=== PATIENT | male | born 1980 | race Caucasian/White ===

== ENCOUNTER 2020-09-30 11:20 | Emergency (ER) | payer OTHER, SELFPAY ==
[2020-09-30 11:25] VITALS: BP 123/99; PULSE 88; RESP 18; TEMP 36.1; O2SAT 98
--- NOTE | 2020-09-30 12:57 | ED.GENADULT ---
HPI - General Adult General Chief complaint: Unspecified Stated complaint: depression/anxiety Time Seen by Provider: 09/30/20 12:11 Source: patient Mode of arrival: ambulatory Limitations: no limitations History of Present Illness HPI narrative: Patient is a 40 year old male who presents with complaints of anxiety and depression. Patient reports multiple recent stressors in his life with change of job, relationship changes, moving among other things. Patient reports that he was diagnosed with ADHD in the past and took Adderall but reports he is not currently taking. He reports loss of enjoyment of activities and intermittent anxiety. He denies suicidal or homicidal thoughts and states he is just sad sometimes and wants to feel better in general . He denies chest pain, shortness or breath or any medical complaints. Patient reports he is seeking referrals for help. MD complaint: Depression and anxiety Related Data Allergies Allergy/AdvReac Type Severity Reaction Status Date / Time No Known Allergies Allergy Verified 09/30/20 11:51 Review of Systems Review of Systems: Narrative: CONSTITUTIONAL: Denies fever, chills, or sweats. EYES: Denies visual changes, redness, or discharge. ENT: Denies rhinorrhea, congestion, sore throat, or otalgia. CARDIOVASCULAR: Denies chest pain, palpitations, or edema. RESPIRATORY: Denies cough or dyspnea. GASTROINTESTINAL: Denies abdominal pain, nausea, vomiting, or diarrhea. GENITOURINARY: Denies dysuria or hematuria. SKIN: Denies rash or itching. MUSCULOSKELETAL: Denies back pain, joint pain, or myalgia. NEUROLOGIC: Denies headache, numbness, dizziness, or weakness. PSYCHIATRIC: Reports intermittent anxiety and depression. [facility] Past Medical History Medical History Attention Deficit Hyperactivity Disorder (ADHD) Chronic low back pain Family History Family History Mother Family history of malignant neoplasm of breast in first degree relative, Onset Age: 37 Other Carcinoma of colon Family history of arthritis Malignant neoplasm of prostate Social History Social History (Updated 09/30/20 @ 13:04 by FANI Barnes) Smoking status: Light tobacco smoker Tobacco type: cigarettes Alcohol intake: current Alcohol use details: occasional Substance use: current Substance use type: marijuana Living arrangements: with family Occupation/Education: occupation Gender identity (if verbalized by the patient): Male Comments At the time of signature, I have reviewed and agree with nursing past medical, surgical, social, and family history unless otherwise noted. Please see nursing chart for further information. There is no relevant family history pertinent to the presenting complaint. Exam Narrative: Exam Narrative: GENERAL: Well-appearing, well-nourished, and in no acute distress. HEAD: Normocephalic, atraumatic. EYES: EOMI. No redness or drainage. Conjunctiva are normal. ENT: Mucous membranes pink and moist. CHEST: No respiratory distress. HEART: Regular rate and rhythm. No murmur appreciated. Normal peripheral pulses. GI: Soft, nontender without rebound, or guarding. EXTREMITIES: Normal range of motion. SKIN: Warm, dry, no rash. NEURO: No focal deficits. Alert and oriented x3. Gait steady. PSYCH: Normal affect. No signs of depression. Mild anxiety noted. No SI/HI. Patient seeking resources. Course Vital Signs Vital signs: Vital Signs Temperature 36.1 C L 09/30/20 11:25 Pulse Rate 88 09/30/20 11:25 Respiratory Rate 18 09/30/20 11:25 Blood Pressure 123/99 H 09/30/20 11:25 Pulse Oximetry 98 09/30/20 11:25 Temperature 36.1 C L 09/30/20 11:25 Pulse Rate 88 09/30/20 11:25 Respiratory Rate 18 09/30/20 11:25 Blood Pressure 123/99 H 09/30/20 11:25 Pulse Oximetry 98 09/30/20 11:25 Reviewed. Patient has been instructed
[2020-09-30 13:25] VITALS: BP 122/73; PULSE 85; RESP 17; O2SAT 100
== END 2020-09-30 13:26 | disposition home or self-care (01) ==
PROVIDERS: Emergency Provider Nurse Practitioner
DX: F41.9 Anxiety disorder, unspecified (principal); F32.9 Major depressive disorder, single episode, unspecified; F90.9 Attention-deficit hyperactivity disorder, unspecified type; F17.210 Nicotine dependence, cigarettes, uncomplicated; R03.0 Elevated blood-pressure reading, without diagnosis of hypertension
CPT/HCPCS: 99283

== ENCOUNTER 2022-02-12 07:02 | Emergency (ER) | payer SELFPAY ==
[2022-02-12 07:05] VITALS: BP 154/105; PULSE 68; RESP 20; TEMP 36.9; O2SAT 98
[2022-02-12 07:44] LABS: Alanine Aminotransferase 18 U/L (6-50); Albumin Level 4.6 g/dL (3.5-5.1); Alkaline Phosphatase 71 U/L (38-126); Anion Gap 12 mmol/L (8-16); Aspartate Amino Transferase 23 U/L (17-59); Bilirubin,Total 0.9 mg/dL (0.2-1.3); Blood Urea Nitrogen 16 mg/dL (9-20); Calcium 9.6 mg/dL (8.4-10.2); Carbon Dioxide 28 mmol/L (22-30); Chloride 101 mmol/L (98-107); Estimated Glomerular Filt Rate > 60; Glucose 113 mg/dL (65-110); Potassium 3.5 mmol/L (3.4-5.0); Sodium 141 mmol/L (137-145)
--- NOTE | 2022-02-12 07:55 | PC.NURSE ---
Pt walking out of room, stating we're out of here, he can't wait This RN verified that pt IV was removed. Pt ambulated to the exit with no difficulty
[2022-02-12 08:03] LABS: Basophils Percent Auto 0.5 % (0.2-1.2); Eosinophils Absolute Auto 0.2 K/mm3 (0-0.3); Eosinophils Percent Auto 2.3 % (0-4.4); Hematocrit 49.4 % (42.0-52.0); Immature Granulocyte Absolute 0.05 K/mm3 (0.00-0.031); Immature Granulocyte Percent A 0.7 % (0-0.5); Lymphocytes Absolute Auto 1.98 K/mm3 (0.9-3.2); Lymphocytes Percent Auto 26.8 % (18.3-44.2); Mean Corpuscular HGB Conc 34.4 g/dl (32-36); Mean Corpuscular Hemoglobin 32.9 pg (26-34); Mean Corpuscular Volume 95.7 fl (80-100); Mean Platelet Volume 9.9 fl (7.4-10.4); Monocytes Absolute Auto 0.7 K/mm3 (0.1-0.6); Monocytes Percent Auto 9.2 % (2.6-8.5); Neutrophils Absolute Auto 4.5 K/mm3 (1.3-6.7); Neutrophils Percent Auto 60.5 % (45.5-73.1); Platelet Count Result 252 k/mm3 (150-375); Red Blood Count 5.16 M/mm3 (4.6-6.20); Red Cell Distribution Width 12.4 % (11.5-14.5); White Blood Count 7.4 K/mm3 (4.5-10.0)
--- NOTE | 2022-02-12 08:05 | ED.GENADULT ---
HPI - General Adult General Chief complaint: Back Pain/Injury Stated complaint: R flank pain Time Seen by Provider: 02/12/22 07:05 History of Present Illness HPI narrative: Patient left prior to seeing provider Related Data Allergies Allergy/AdvReac Type Severity Reaction Status Date / Time No Known Allergies Allergy Verified 09/30/20 11:51 [facility] Past Medical History Medical History (Updated 10/03/20 @ 09:03 by Venita Martinez NP) Anxiety Attention Deficit Hyperactivity Disorder (ADHD) Chronic low back pain Hx of renal calculi Family History Family History Mother Family history of malignant neoplasm of breast in first degree relative, Onset Age: 37 Other Carcinoma of colon Family history of arthritis Malignant neoplasm of prostate Social History Social History (Updated 11/19/20 @ 13:59 by Viviana Jain [facility]) Smoking status: Current every day smoker Tobacco type: cigarettes Alcohol intake: current Alcohol use details: occasional Substance use: current Substance use type: marijuana Gender identity (if verbalized by the patient): Male Course Vital Signs Vital signs: Vital Signs Temperature 98.4 F 02/12/22 07:05 Pulse Rate 68 02/12/22 07:05 Respiratory Rate 20 02/12/22 07:05 Blood Pressure 154/105 H 02/12/22 07:05 Pulse Oximetry 98 02/12/22 07:05 Oxygen Delivery Room Air 02/12/22 07:05 Temperature 98.4 F 02/12/22 07:05 Pulse Rate 68 02/12/22 07:05 Respiratory Rate 20 02/12/22 07:05 Blood Pressure 154/105 H 02/12/22 07:05 Pulse Oximetry 98 02/12/22 07:05 Oxygen Delivery Room Air 02/12/22 07:05 Medical Decision Making Vital Signs Vital Signs: Vital Signs Temperature 98.4 F 02/12/22 07:05 Pulse Rate 68 02/12/22 07:05 Respiratory Rate 20 02/12/22 07:05 Blood Pressure 154/105 H 02/12/22 07:05 Pulse Oximetry 98 02/12/22 07:05 Oxygen Delivery Room Air 02/12/22 07:05 Temperature 98.4 F 02/12/22 07:05 Pulse Rate 68 02/12/22 07:05 Respiratory Rate 20 02/12/22 07:05 Blood Pressure 154/105 H 02/12/22 07:05 Pulse Oximetry 98 02/12/22 07:05 Oxygen Delivery Room Air 02/12/22 07:05 Lab Data Result diagrams: 02/12/22 07:26 02/12/22 07:26 Labs: Lab Results 02/12/22 02/12/22 Range/Units 07: 07:26 WBC 7.4 (4.5-10.0) K/mm3 RBC 5.16 (4.6-6.20) M/mm3 Hgb 17.0 (14.0-18.0) g/dL Hct 49.4 (42.0-52.0) % MCV 95.7 (80-100) fl MCH 32.9 (26-34) pg MCHC 34.4 (32-36) g/dl RDW 12.4 (11.5-14.5) % Plt Count 252 (150-375) k/mm3 MPV 9.9 (7.4-10.4) fl Immature Gran % (Auto) 0.7 H (0-0.5) % Neut % (Auto) 60.5 (45.5-73.1) % Lymph % (Auto) 26.8 (18.3-44.2) % Polk % (Auto) 9.2 H (2.6-8.5) % Eos % (Auto) 2.3 (0-4.4) % Baso % (Auto) 0.5 (0.2-1.2) % Lymph # (Auto) 1.98 (0.9-3.2) K/mm3 Polk # (Auto) 0.7 H (0.1-0.6) K/mm3 Eos # (Auto) 0.2 (0-0.3) K/mm3 Baso # (Auto) 0.0 (0.0-0.1) K/mm3 Abs Immat Gran (auto) 0.05 H (0.00-0.031) K/mm3 Absolute Neuts (auto) 4.5 (1.3-6.7) K/mm3 Absolute Nucleated RBC 0.0 (0.0-0.012) K/mm3 Nucleated RBC % 0.0 (0.0-0.2) % Sodium 141 (137-145) mmol/L Potassium 3.5 (3.4-5.0) mmol/L Chloride 101 (98-107) mmol/L Carbon Dioxide 28 (22-30) mmol/L Anion Gap 12 (8-16) mmol/L BUN 16 (9-20) mg/dL Creatinine 1.10 (0.7-1.3) mg/dL Estim Creat Clear Calc Not Reportable Estimated GFR > 60 (59 - ) Glucose 113 H (65-110) mg/dL Calcium 9.6 (8.4-10.2) mg/dL Total Bilirubin 0.9 (0.2-1.3) mg/dL AST 23 (17-59) U/L ALT 18 (6-50) U/L Alkaline Phosphatase 71 (38-126) U/L Total Protein 7.0 (6.3-8.2) g/dL Albumin 4.6 (3.5-5.1) g/dL Discharge Plan Discharge Patient Disposition: Left Without Being Sn Triaged Prescriptions: No Action triamcinolone ac
== END 2022-02-12 07:55 | disposition left against medical advice (07) ==
PROVIDERS: Emergency Provider Emergency Medicine; PCP Internal Medicine
DX: M54.9 Dorsalgia, unspecified (principal)
CPT/HCPCS: 36415; 80053; 85025; 99199

== ENCOUNTER 2022-02-28 12:11 | Emergency (ER) | payer SELFPAY ==
--- NOTE | ~2022-02-28 | CT_ITS ---
EXAMINATION: CT abdomen pelvis wo con DATE: 02/28/2022 13:40 INDICATION: Right lower quadrant pain. Flank pain. TECHNIQUE: Computed tomography (CT) of the abdomen and pelvis was performed without intravenous contr ast. The dose-length product was 601.98 mGy-cm. Automated exposure control and iterative reconstructi on technique were employed. COMPARISON: CT dated 11/22/2007 FINDINGS: There is bibasilar dependent atelectasis. Heart size normal. No significant pleural or nicko cardial effusion. No significant vascular abnormality. Retroaortic left renal vein. No lymphadenopath y. There is a proximal right ureteral stone measuring 7 x 5 mm with moderate hydroureteronephrosis. Ther e are additional nonobstructing bilateral renal stones. The liver, spleen, pancreas, right adrenal gland are unremarkable. There is a 1.3 cm left adrenal mas s, most likely benign adenoma statistically. Gallbladder is present. Nonobstructive bowel gas pattern . Normal appendix. No abnormal pelvic masses or fluid collections. Moderate lumbar spondylosis. No ac shalonda osseous abnormality. IMPRESSION: 1. Proximal right ureteral stone at the L4-5 level measuring 7 x 5 mm. 2: Bilateral nephrolithiasis. Reviewed, dictated and finalized at location A. LANCE GRAPHIC DESIGNER
[2022-02-28 12:13] VITALS: BP 133/86; PULSE 88; RESP 14; TEMP 36.2; O2SAT 100
[2022-02-28 12:17] VITALS: BP 127/92; PULSE 91; RESP 14; TEMP 36.3; O2SAT 100
--- NOTE | 2022-02-28 12:22 | ED.ABDPAIN ---
HPI - Abdominal Pain General Chief Complaint: Abdominal Pain Stated Complaint: stomach pain, indigestion Time Seen by Provider: 02/28/22 12:14 History of Present Illness HPI narrative: 41-year-old male with history of kidney stones and lower back pain presented emergency department for evaluation of increased fatigue, right lower quadrant abdominal pain and decreased p.o. intake. Patient states last week he was having right-sided flank pain that radiated down to his testicles was reminiscent of a kidney stone. Patient states he did have some blood in his urine last week. Patient states the pain has significantly improved but he is still had decreased p.o. intake and still feels fatigued. Patient declined any medications for pain control or nausea control. Related Data Allergies Allergy/AdvReac Type Severity Reaction Status Date / Time No Known Allergies Allergy Verified 02/28/22 12:19 Review of Systems Review of Systems: CONSTITUTIONAL: Denies fever, chills, or sweats. EYES: Denies visual changes, redness, or discharge. ENT: Denies rhinorrhea, congestion, sore throat, or otalgia. CARDIOVASCULAR: Denies chest pain, palpitations, or edema. RESPIRATORY: Denies cough or dyspnea. GASTROINTESTINAL: See HPI GENITOURINARY: Denies dysuria or hematuria. SKIN: Denies rash or itching. MUSCULOSKELETAL: Denies back pain, joint pain, or myalgia. NEUROLOGIC: Denies headache, numbness, or weakness. [facility] Past Medical History Medical History (Updated 02/28/22 @ 14:52 by Holland Yee MD) Anxiety Attention Deficit Hyperactivity Disorder (ADHD) Chronic low back pain Hx of renal calculi Family History Family History Mother Family history of malignant neoplasm of breast in first degree relative, Onset Age: 37 Other Carcinoma of colon Family history of arthritis Malignant neoplasm of prostate Social History Social History (Updated 11/19/20 @ 13:59 by Viviana Jain CMA) Smoking status: Current every day smoker Tobacco type: cigarettes Alcohol intake: current Alcohol use details: occasional Substance use: current Substance use type: marijuana Gender identity (if verbalized by the patient): Male Exam Narrative: APPEARANCE: Well appearing, no pain, no distress, well-nourished. HEAD: normocephalic, atraumatic. EYES: PERRLA/EOMI, conjunctivae clear. NOSE: Normal no drainage NECK: Supple. No adenopathy, no masses. RESPIRATORY: Airway patent, respirations nonlabored. Clear to auscultation bilaterally, no rales, rhonchi, wheezing. CARDIOVASCULAR: Regular rate and rhythm without murmurs rubs or gallops. ABDOMINAL: Soft, nontender, nondistended, normal bowel sounds MUSCULOSKELETAL: Moves all extremities. Strength/ROM intact, No edema, No calf tenderness. NEURO: Alert. Cranial nerves II through XII intact. Good gait. Good coordination SKIN: Warm, dry. Normal Color Course Course Emergency Course: Patient was updated on the results of his CT scan showing a 5 x 7 proximal ureteral stone. Patient declined admission for his JESUS. Patient was treated with 2 L of IV fluids. Patient states when he arrived he was having a headache. Patient states his headache is now resolved. Patient states he does feel he was dehydrated. I had a second lengthy discussion with the patient that staying due to his acute kidney injury. Patient states he prefers to do outpatient follow-up. Patient was provided urology follow-up. Patient was encouraged to call urologist office in the morning and to have repeat kidney function testing. Patient will be provided Zofran, Flomax and some Maysel for pain control. Patient was comfortable with the plan for discharge and close follow-up. Patient reconsidered and did agree to stay. I discussed the case with Dr. Tirado for urology and he will see the patient as consult. Discussed case with the hospitalist patient was accepted for admission.
[2022-02-28 12:37] LABS: Basophils Absolute Auto 0.1 K/mm3 (0.0-0.1); Basophils Percent Auto 0.5 % (0.2-1.2); Eosinophils Absolute Auto 0.1 K/mm3 (0-0.3); Eosinophils Percent Auto 1.3 % (0-4.4); Hematocrit 48.6 % (42.0-52.0); Hemoglobin 16.6 g/dL (14.0-18.0); Immature Granulocyte Absolute 0.06 K/mm3 (0.00-0.031); Immature Granulocyte Percent A 0.6 % (0-0.5); Lymphocytes Absolute Auto 1.85 K/mm3 (0.9-3.2); Lymphocytes Percent Auto 18.2 % (18.3-44.2); Mean Corpuscular HGB Conc 34.2 g/dl (32-36); Mean Corpuscular Hemoglobin 32.9 pg (26-34); Mean Corpuscular Volume 96.2 fl (80-100); Mean Platelet Volume 9.5 fl (7.4-10.4); Monocytes Absolute Auto 0.8 K/mm3 (0.1-0.6); Neutrophils Absolute Auto 7.3 K/mm3 (1.3-6.7); Neutrophils Percent Auto 71.4 % (45.5-73.1); Platelet Count Result 265 k/mm3 (150-375); Red Blood Count 5.05 M/mm3 (4.6-6.20); Red Cell Distribution Width 12.2 % (11.5-14.5); White Blood Count 10.2 K/mm3 (4.5-10.0)
[2022-02-28 12:48] LABS: Alanine Aminotransferase 18 U/L (6-50); Albumin Level 4.8 g/dL (3.5-5.1); Alkaline Phosphatase 67 U/L (38-126); Anion Gap 8 mmol/L (8-16); Aspartate Amino Transferase 21 U/L (17-59); Bilirubin,Total 0.7 mg/dL (0.2-1.3); Blood Urea Nitrogen 22 mg/dL (9-20); Calcium 9.7 mg/dL (8.4-10.2); Carbon Dioxide 27 mmol/L (22-30); Chloride 103 mmol/L (98-107); Estimated CRCL calculation 53 ml/min; Estimated Glomerular Filt Rate 41; Glucose 108 mg/dL (65-110); Lipase 119 U/L (23-300); Potassium 4.2 mmol/L (3.4-5.0); Sodium 138 mmol/L (137-145)
[2022-02-28] MEDS: SODIUM CHLORIDE 0.9% IV 1,000 ML 999 ML IV CONT ×2 (12:58→15:09)
[2022-02-28 13:14] LABS: Influenza A QL RT-PCR Negative (Negative); Influenza B QL RT-PCR Negative (Negative); SARS-CoV-2 RNA PCR Negative
[2022-02-28 13:38] LABS: Appearance Urine Clear (Clear); Bilirubin Urine Negative (Negative); Blood Urine 2+ (Negative); Color Urine Yellow (Yellow); Glucose Urine UA Negative (Negative); Ketones Urine Trace mg/dL (Negative); Leukocyte Esterase Ur Negative LEU/UL (Negative); Nitrate Urine Negative (Negative); Protein Urine Negative (Negative); Specific Grav Ur 1.025 (1.001-1.035); Urobilinogen Urine 0.2 mg/dL (<2.0); pH Urine 5.5 (5.0-9.0)
[2022-02-28 13:47] LABS: Mucus Urine Rare /lpf; Squamous Epithelial Cell Urine Rare /hpf (Few)
[2022-02-28 13:51] LABS: Add Urine Microscopic? YES
[2022-02-28] MEDS: TAMSULOSIN HCL 0.4 MG CAPSULE PO (15:13)
[2022-02-28 16:00] VITALS: BP 142/86; PULSE 88; RESP 16; O2SAT 99
[2022-02-28 18:30] VITALS: BP 135/74; PULSE 74; RESP 18; O2SAT 99
--- NOTE | 2022-02-28 19:37 | PC.NURSE ---
pt stated , I didn't feel right being in the hospital, I would be better off at home , you guys were great and very professional when asked about IV removal, responded, when i got home, my took it out, she an RN ADVISED THE PT TO FOLLOW UP WITH UROLOGY AND IF NEEDED TO COME BACK AND BE REEVALUATED IF NEED BE, he was agreeable
== END 2022-02-28 19:40 | disposition left against medical advice (07) ==
LOC: ANHED 16:18 → ANH3MEDSUR 19:18
PROVIDERS: Emergency Medicine; Emergency Provider Emergency Medicine; PCP Internal Medicine
DX: N20.2 Calculus of kidney with calculus of ureter (principal); N17.9 Acute kidney failure, unspecified; Z20.822 Contact with and (suspected) exposure to COVID-19; F17.210 Nicotine dependence, cigarettes, uncomplicated; Z87.442 Personal history of urinary calculi
CPT/HCPCS: 36415; 74176; 80053; 81001; 83690; 85025; 87636; 96360; 96361; 99284; A9270; J7030

== ENCOUNTER 2023-04-25 09:41 | Emergency (ER) | payer SELFPAY ==
[2023-04-25] VITALS (7 sets, daily range): BP systolic 138–140; BP diastolic 84–85; PULSE 72; RESP 18; TEMP 36.8; O2SAT 97–100
--- NOTE | ~2023-04-25 | XR_ITS ---
Clinical Indication: Chest wall lump PA and lateral views of the chest: Comparison: None Findings: Calcified right apical granuloma present. The lungs are otherwise clear, without evidence o f focal consolidation or pleural effusion. Cardiomediastinal silhouette is within normal limits. Bon es and soft tissues are unremarkable. Impression: No significant abnormality. No soft tissue mass appreciated radiographically. Consider CT, MR, or targeted ultrasound to further evaluate for soft tissue mass, as indicated. Reviewed, dictated and finalized at [facility]. [facility] Impression: No significant abnormality. No soft tissue mass appreciated radiographically. Consider CT, MR, or targeted ultrasound to further evaluate for soft tissue mass, as indicated.
--- NOTE | ~2023-04-25 | CT_ITS ---
EXAMINATION: CT brain wo con DATE: 04/25/2023 13:59 INDICATION: Dizziness. Confusion. Headache. TECHNIQUE: Computed tomography (CT) of the head was performed without intravenous contrast. The mA wa s adjusted according to patient size. Iterative reconstruction technique was employed. The dose-lengt h product was 681.00 mGy-cm. COMPARISON: None FINDINGS: There is no intracranial hemorrhage, acute infarction, or abnormal intracranial mass lesion . The ventricles are normal in size. The orbits are normal. There is mucosal thickening in sphenoid s inus. The mastoid air cells are normal. IMPRESSION: 1. Normal brain. Reviewed, dictated and finalized at location A. H GRADER SUPERVISOR IMPRESSION: 1. Normal brain.
--- NOTE | 2023-04-25 11:41 | ED.GENADULT ---
HPI - General Adult General Chief complaint: Unspecified <Neha Phillips July, EXCELLENCE CONSULTANT - Last Filed: 04/25/23 11:45> Stated complaint: lump on chest <Neha Phillips July, EXCELLENCE CONSULTANT - Last Filed: 04/25/23 11:45> Time Seen by Provider: 04/25/23 12:36 <Neha Phillips July, EXCELLENCE CONSULTANT - Last Filed: 04/25/23 11:45> Focused HPI: 1142 Matty Mello is a 42 y/o male who presents today with reports of noticing a small lump to right breast 2 years ago and it has continued to increase in size and now it is starting to be painful and is here today to get some scans to get it checked - he is concerned about breast CA and his mother of Breast CA at the age of 36 GENERAL: Well-appearing, well-nourished, and in no acute distress. HEAD: Normocephalic, atraumatic. CHEST: Clear to auscultation. ?No respiratory distress.- Moderate size mass under right nipple HEART: Regular rate and rhythm.? NEURO: ?Alert and oriented x3. Patient screened in triage and initial orders placed.? ?Additional care and disposition to be based upon?diagnostic testing and treatment. <Holland Yee MD - Last Filed: 04/25/23 18:25> History of Present Illness HPI narrative: Focused HPI: 1142 Matty Mello is a 42 y/o male who presents today with reports of noticing a small lump to right breast 2 years ago and it has continued to increase in size and now it is starting to be painful and is here today to get some scans to get it checked - he is concerned about breast CA and his mother of Breast CA at the age of 36 GENERAL: Well-appearing, well-nourished, and in no acute distress. HEAD: Normocephalic, atraumatic. CHEST: Clear to auscultation. ?No respiratory distress.- Moderate size mass under right nipple HEART: Regular rate and rhythm.? NEURO: ?Alert and oriented x3. Patient screened in triage and initial orders placed.? ?Additional care and disposition to be based upon?diagnostic testing and treatment. <Neha Phillips July, EXCELLENCE CONSULTANT - Last Filed: 04/25/23 11:45> [age] old male presenting emergency department for evaluation of a right-sided breast mass that is been present for approximately 2 years. Patient states that the pain has worsened. Patient does not have a primary care physician does not have health insurance. <Holland Yee MD - Last Filed: 04/25/23 18:25> Related Data Allergies/adverse reactions: Allergies Allergy/AdvReac Type Severity Reaction Status Date / Time No Known Allergies Allergy Verified 04/25/23 09:42 <Neha Pacheco EXCELLENCE CONSULTANT - Last Filed: 04/25/23 11:45> Review of Systems Review of Systems: All systems reviewed & are unremarkable except as noted in HPI and below <Holland Yee MD - Last Filed: 04/25/23 18:25> [facility] Past Medical History Medical History: Medical History (Updated 04/25/23 @ 14:57 by Holland Yee MD) Anxiety Attention Deficit Hyperactivity Disorder (ADHD) Chronic low back pain Hx of renal calculi <Neha Pacheco EXCELLENCE CONSULTANT - Last Filed: 04/25/23 11:45> Family History Family History: Family History Mother Family history of malignant neoplasm of breast in first degree relative, Onset Age: 37 Other Carcinoma of colon Family history of arthritis Malignant neoplasm of prostate <Neha Pacheco EXCELLENCE CONSULTANT - Last Filed: 04/25/23 11:45> Social History Social History: Social History (Updated 11/19/20 @ 13:59 by Viviana Jain [facility]) Smoking status: Current every day smoker Tobacco type: cigarettes Alcohol intake: current Alcohol use details: occasional Substance use: current Substance use type: marijuana Living arrangements: with family Occupation/Education: occupation Gender identity (if verbalized by the patient): Male <Neha Pacheco, EXCELLENCE CONSULTANT - Last Filed: 04/25/23 11:45> Exam Narrative: APPEARANCE: Well appearing, no pain, no distress, well-nourished. HEAD: normocephalic, atraumatic. EYES: PERRLA/EOMI, conjunctiva
[2023-04-25 12:25] LABS: Basophils Percent Auto 0.4 % (0.2-1.2); Eosinophils Absolute Auto 0.2 K/mm3 (0-0.3); Eosinophils Percent Auto 2.2 % (0-4.4); Hematocrit 48.2 % (42.0-52.0); Hemoglobin 15.6 g/dL (14.0-18.0); Immature Granulocyte Absolute 0.04 K/mm3 (0.00-0.031); Immature Granulocyte Percent A 0.4 % (0-0.5); Lymphocytes Absolute Auto 2.05 K/mm3 (0.9-3.2); Lymphocytes Percent Auto 22.8 % (18.3-44.2); Mean Corpuscular HGB Conc 32.4 g/dl (32-36); Mean Corpuscular Hemoglobin 31.6 pg (26-34); Mean Corpuscular Volume 97.6 fl (80-100); Mean Platelet Volume 9.6 fl (7.4-10.4); Monocytes Absolute Auto 0.9 K/mm3 (0.1-0.6); Monocytes Percent Auto 9.5 % (2.6-8.5); Neutrophils Absolute Auto 5.8 K/mm3 (1.3-6.7); Neutrophils Percent Auto 64.7 % (45.5-73.1); Platelet Count Result 246 k/mm3 (150-375); Red Blood Count 4.94 M/mm3 (4.6-6.20)
[2023-04-25 12:38] LABS: Alanine Aminotransferase 19 U/L (6-50); Albumin Level 4.6 g/dL (3.5-5.1); Alkaline Phosphatase 66 U/L (38-126); Anion Gap 6 mmol/L (8-16); Aspartate Amino Transferase 25 U/L (17-59); Bilirubin,Total 0.5 mg/dL (0.2-1.3); Blood Urea Nitrogen 13 mg/dL (9-20); Calcium 9.6 mg/dL (8.4-10.2); Carbon Dioxide 30 mmol/L (22-30); Chloride 102 mmol/L (98-107); Estimated CRCL calculation 101 ml/min; Estimated Glomerular Filt Rate > 60; Glucose 95 mg/dL (65-110); Potassium 3.9 mmol/L (3.4-5.0); Sodium 138 mmol/L (137-145)
== END 2023-04-25 15:07 | disposition home or self-care (01) ==
PROVIDERS: Nurse Practitioner Family; Emergency Provider Emergency Medicine
DX: N63.10 Unspecified lump in the right breast, unspecified quadrant (principal); F17.210 Nicotine dependence, cigarettes, uncomplicated; Z80.3 Family history of malignant neoplasm of breast
CPT/HCPCS: 36415; 70450; 71046; 80053; 85025; 99284

== ENCOUNTER 2023-05-17 11:12 | Outpatient (CLI) | payer MEDICAID, SELFPAY ==
--- NOTE | ~2023-05-17 | MMUS_ITS ---
EXAMINATION: MM diagnostic teresita RT w gale, US breast RT limited HISTORY: Palpable right breast lump for 2 years. TECHNIQUE: Additional 3-D tomosynthesis images of the right breast were performed and synthetic 2-D i mages were generated. CAD analysis was submitted and interpreted. High resolution Limited right breas t ultrasound was performed. COMPARISON: None BREAST PARENCHYMAL COMPOSITION: Not dense: There are scattered areas of fibroglandular density. FINDINGS: MAMMOGRAPHIC FINDINGS: No mammographic evidence for malignancy in the left breast. In the area of palpable concern in the ri ght breast there is a 2.8 cm mass with irregular margins. ULTRASOUND: Limited right breast ultrasound: At 12:00 near the nipple is an irregular shaped hypoechoic mass measuring 3.7 x 2.6 x 1.9 cm with mar ginal vascularity. This corresponds to the mammographic finding. IMPRESSION: 1. Complex hypoechoic 3.7 cm right breast mass. 2. Ultrasound-guided right breast biopsy recommended. BI-RADS category 4, suspicious findings. Reviewed, dictated and finalized at location A. FILL OPERATOR IMPRESSION: 1. Complex hypoechoic 3.7 cm right breast mass. 2. Ultrasound-guided right breast biopsy recommended. BI-RADS category 4, suspicious findings.
[2023-05-17 13:51] LABS: Free T4 Free Thyroxine 0.78 ng/mL (0.78-2.19)
[2023-05-17 14:00] LABS: Prostate Specific Antigen 0.4 ng/mL (< OR = 4.0); Thyroid Stimulating Hormone 0.873 uIU/mL (0.465-4.680)
[2023-05-17 17:18] LABS: Cholesterol 185 mg/dL (0-200); HDL Direct 49 mg/dL; Triglycerides 53 mg/dL (<150)
[2023-05-17 17:21] LABS: LDL Cholesterol Direct 121 mg/dL
== END 2023-05-17 11:13 | disposition home or self-care (01) ==
PROVIDERS: Visit Provider Emergency Medicine
DX: R92.8 Other abnormal and inconclusive findings on diagnostic imaging of breast (principal)
CPT/HCPCS: 36415; 76642; 77061; 77065; 80061; 84153; 84439; 84443; G0279

== ENCOUNTER 2023-06-02 10:06 | Outpatient (CLI) | payer MEDICAID, SELFPAY ==
--- NOTE | ~2023-06-02 | MMUS_ITS ---
EXAMINATION: US GUIDED NEEDLE BIOPSY DATE: 06/02/2023 12:38 LOWER IN SUPERVISOR INDICATION: Right breast mass TECHNIQUE AND FINDINGS: The risks and potential benefits of the procedure were discussed with the patient, and written inform ed consent was obtained. Timeout procedure was performed. After sterile preparation of the right carola st, 1% lidocaine was utilized for local anesthesia. A 12-gauge spring-loaded biopsy gun needle was advanced to the edge of the region of interest from a lateral approach utilizing sonographic guidance. A total of three tissue core samples were obtained through the lesion. An Inrad tissue marker clip was then placed at the biopsy site. Hemostasis was a chieved. A sterile bandage was applied. The patient tolerated procedure well and there was no evidence of immediate complication. The patien t was given verbal instructions prior to departing from the department. A two view mammogram was perf ormed to document tissue marker clip placement. The tissue samples were submitted to surgical patholo gy for histologic analysis. IMPRESSION: Ultrasound guided biopsy of right breast mass with biopsy marker placement. Please refer to pathology report for histologic analysis. Reviewed, dictated and finalized at Location A. Reviewed, dictated and finalized at location A. R IN SUPERVISOR IMPRESSION: Ultrasound guided biopsy of right breast mass with biopsy marker placement. Ple ase refer to pathology report for histologic analysis.
== END 2023-06-02 10:07 | disposition home or self-care (01) ==
LOC: ANHIMG 10:06
PROVIDERS: Visit Provider Surgery
DX: N63.10 Unspecified lump in the right breast, unspecified quadrant (principal); D05.11 Intraductal carcinoma in situ of right breast
CPT/HCPCS: 19083; 88305; 88342; A4648

== ENCOUNTER 2023-06-21 16:04 | Outpatient (CLI) | payer MEDICAID, SELFPAY ==
[2023-06-21 16:28] LABS: Kit Draw Collected
== END 2023-06-21 16:05 | disposition home or self-care (01) ==
PROVIDERS: Visit Provider Internal Medicine Hematology & Oncology
DX: C50.121 Malignant neoplasm of central portion of right male breast (principal); Z17.0 Estrogen receptor positive status [ER+]
CPT/HCPCS: 36415

== ENCOUNTER 2023-06-27 14:39 | Outpatient (CLI) | payer OTHER, SELFPAY ==
--- NOTE | 2023-06-27 | ECHO_ITS ---
Patient Info Name: Matty Mello Age: 43 years : 1980 Gender: Male Ht: 72 in Wt: 204 lbs BSA: 2.18 m2 HR: 84 bpm BP: 152 / 90 mmHg Heart Rhythm: Sinus Rhythm Technical Quality: Fair Exam Date: 06/27/2023 2:58 PM Exam Location: Echo Lab Patient Status: Outpatient Admit Date: 06/27/2023 Staff Ordering Physician: Artur Booth MD Timber Deadener: Kenzie Taylor RDCS Attending Provider: Artur Booth MD Referring Physician: Emmy MEZA; Exam Type: CA echo doppler color flow Study Info Indications - cancer of right breast of male Complete two-dimensional, color flow and Doppler transthoracic echocardiogram is performed. Summary 1. Complete two-dimensional, color flow and Doppler transthoracic echocardiogram is performed. 2. Unremarkable 2D/Doppler echocardiogram. Left Ventricle Left ventricular chamber dimension is normal. Left ventricular systolic function is normal, estimated at 60-65%. The left ventricular diastolic function is normal. Right Ventricle Right ventricular chamber dimension is normal. Left Atria Left atrial chamber dimension is normal. Right Atria Right atrial chamber dimension is normal. Aortic Valve The aortic valve is normal. Pulmonic Valve The pulmonic valve is normal. Mitral Valve The mitral valve has normal leaflets. Tricuspid Valve The tricuspid valve leaflets are normal. Pericardium/Pleural The pericardium appears normal. Aorta The aortic root size at the sinus of Valsalva is normal. Left Ventricular Outflow Tract Name Value Normal LVOT 2D LVOT Diameter 2.1 cm LVOT Doppler LVOT Peak Gradient 3 mmHg LVOT Mean Gradient 2 mmHg LVOT VTI 16 cm LVOT VTI/AV VTI Ratio 0.7 LVOT Stroke Volume 56 ml LVOT CO 3.4 l/min LVOT CI 1.5 l/min/m2 Pulmonic Valve Name Value Normal RVOT Doppler RVOT Peak Gradient 1 mmHg PV Doppler PV Peak Gradient 4 mmHg Tricuspid Valve Name Value Normal TV Regurgitation Doppler TR Peak Velocity 257 cm/s TR Peak Gradient 18 mmHg Estimated PAP/RSVP RA Pressure 10 mmHg <=5 PA Systolic Pressure 36 mmHg <36 RV Systolic Pressure 36 mmHg <36 Aorta
== END 2023-06-27 14:40 | disposition home or self-care (01) ==
LOC: ANHCARD 14:42
PROVIDERS: PCP Emergency Medicine; Visit Provider Internal Medicine Hematology & Oncology
DX: C50.121 Malignant neoplasm of central portion of right male breast (principal); Z17.0 Estrogen receptor positive status [ER+]
CPT/HCPCS: 93306

== ENCOUNTER 2023-06-28 08:57 | Outpatient (CLI) | payer OTHER, SELFPAY ==
--- NOTE | ~2023-06-28 | PE_ITS ---
EXAMINATION: PET skull to mid thigh DATE: 06/28/2023 11:43 INDICATION: Melena neoplasm of central portion of right breast. TECHNIQUE: Blood glucose level was 101 mg/dL. 8.379 mCi of 18-fluorodeoxyglucose (18-FDG) was adminis tered i.v. Low dose computed tomography (CT) images were acquired from the base of the brain to the p roximal thighs for attenuation correction and anatomic localization. Automated exposure control was e mployed. Dose-length product (DLP) was 785 mGy-cm. Positron emission tomography (PET) images were acq uired in the same distribution. COMPARISON: None FINDINGS: Head/neck: There are no pathologically enlarged lymph nodes. Chest: A calcified right lung nodule and calcified right hilar and mediastinal lymph nodes are consis tent with old granulomatous disease. There is mild atelectasis bilaterally. No pleural effusion. The heart size is normal. There are coronary artery calcifications. No pericardial effusion. There is a 2 .1 x 1.3 cm mass in the anterior mediastinum without increased activity. There is mild left-sided securities consultant ecomastia. In the right breast, there is a 3.4 x 2.4 cm mass with maximum SUV of 17.1. Abdomen/pelvis/proximal thighs: The liver, gallbladder, pancreas, and adrenal glands are normal. Calc ifications in the spleen are consistent with old granulomatous disease. There are approximately 4 sto juliana in right kidney measuring up to 3 mm. There is an 8 mm mass in left kidney that is too small to c haracterize, but likely a cyst. There are approximately 4 stones in left kidney measuring up to 4 mm. There are no dilated loops of bowel. The appendix is normal. There are no pathologically enlarged ly mph nodes. There is no free intraperitoneal fluid. There is no osseous malignancy. IMPRESSION: 1. 3.4 cm mass in right breast with increased activity, consistent with primary malignancy. No eviden ce of metastatic disease. 2. 2.1 cm mass in the anterior mediastinum without increased activity. The differential diagnosis inc ludes germ cell neoplasm, ectopic thyroid, thymoma, and thymic hyperplasia. Reviewed, dictated and finalized at location A. IMPRESSION: 1. 3.4 cm mass in right breast with increased activity, consistent with primary malignancy. No evidence of metastatic disease. 2. 2.1 cm mass in the anterior mediastinum without increased activity. The diff erential diagnosis includes germ cell neoplasm, ectopic thyroid, thymoma, and t hymic hyperplasia.
[2023-06-28 09:47] LABS: Glucose Point of Care 101 mg/dl (65-105)
== END 2023-06-28 08:58 | disposition home or self-care (01) ==
PROVIDERS: PCP Emergency Medicine; Visit Provider Internal Medicine Hematology & Oncology
DX: C50.121 Malignant neoplasm of central portion of right male breast (principal); Z17.0 Estrogen receptor positive status [ER+]
CPT/HCPCS: 78815; A9552

== ENCOUNTER 2023-07-05 16:01 | Outpatient (CLI) | payer OTHER, SELFPAY ==
[2023-07-05 16:20] LABS: Basophils Absolute Auto 0.1 K/mm3 (0.0-0.1); Basophils Percent Auto 0.7 % (0.2-1.2); Eosinophils Absolute Auto 0.1 K/mm3 (0-0.3); Hematocrit 47.7 % (42.0-52.0); Hemoglobin 15.7 g/dL (14.0-18.0); Immature Granulocyte Absolute 0.08 K/mm3 (0.00-0.031); Immature Granulocyte Percent A 0.8 % (0-0.5); Lymphocytes Absolute Auto 2.38 K/mm3 (0.9-3.2); Lymphocytes Percent Auto 23.7 % (18.3-44.2); Mean Corpuscular HGB Conc 32.9 g/dl (32-36); Mean Corpuscular Hemoglobin 31.8 pg (26-34); Mean Corpuscular Volume 96.8 fl (80-100); Mean Platelet Volume 9.6 fl (7.4-10.4); Monocytes Absolute Auto 0.9 K/mm3 (0.1-0.6); Monocytes Percent Auto 8.5 % (2.6-8.5); Neutrophils Absolute Auto 6.6 K/mm3 (1.3-6.7); Neutrophils Percent Auto 65.3 % (45.5-73.1); Platelet Count Result 289 k/mm3 (150-375); Red Blood Count 4.93 M/mm3 (4.6-6.20); Red Cell Distribution Width 12.9 % (11.5-14.5)
[2023-07-05 16:37] LABS: Prothrombin Time 13.7 Seconds (11.1-14.7)
[2023-07-05 16:38] LABS: Partial Thromboplastin Time 30.7 Seconds (22.3-36.8)
== END 2023-07-05 16:02 | disposition home or self-care (01) ==
LOC: ANHLAB 16:02
PROVIDERS: PCP Emergency Medicine; Visit Provider Surgery
DX: C50.929 Malignant neoplasm of unspecified site of unspecified male breast (principal); Z01.818 Encounter for other preprocedural examination
CPT/HCPCS: 36415; 85025; 85610; 85730

== ENCOUNTER 2023-07-06 02:11 | Day surgery (SDC) | payer OTHER, SELFPAY ==
[2023-07-04 09:28] VITALS: BMI 26.9
--- NOTE | 2023-07-04 09:35 | PC.NURSE ---
Report to the Outpatient Waiting Room, entrance under the green pavilion located off [facility], at time _1200_ on date _07/06/23. Planned Procedure Time: _1400_. Time changes happen often and if your time is changed the preop area will call you the afternoon before. - You and your visitor will be asked to self-screen and do not enter if you have any COVID symptoms. - A mask is optional within the hospital at this time. Patients may have clear liquids (water, carbonated beverages, clear teas, apple juice) until 3 hours prior to surgery with a maximum of 20 ounces. - No food from midnight until time of surgery - Infants may have breast milk until 4 hours before surgery, formula 6 hours prior to surgery. - Children will be allowed to drink immediately following surgery. If applicable, please bring a bottle or sippy cup to assist with drinking. Juice, water, soda, and popsicles are readily available. For infants on formula, please bring formula the day of surgery. Pacifiers are allowed. Take the following medications with a SIP of water the morning of surgery: ALPRAZOLAM DO NOT STOP ANY OF YOUR OTHER PRESCRIPTION MEDICATIONS PRIOR TO SURGERY ?EXCEPT THE FOLLOWING Medications to discontinue per physician NONE Date to take last dose Please no make-up, nail nepali, hairspray, perfume, deodorant, or body powder the day of surgery. No jewelry (including any body piercings) or valuables the day of surgery, leave them at home. Please take a shower or bath the night before, or the morning of, surgery with HIBICLENS antibacterial soap. Wear comfortable, loose fitting clothing. Children are encouraged to wear pajamas. - Jewelry must be removed prior to entering the operating room. Rings and piercings that are not removed may be cut off. - The hospital will not accept responsibility for valuables. - Please leave all valuables, including medications, at home the day of surgery. If you are going home after surgery, a licensed motor pool driver must drive you home. - NO public transportation without another adult if you receive anesthesia. - We recommend that an adult stay with you for 24 hours following discharge. - We also recommend that you do not drive, make important decision, drink alcoholic beverages, or take any drugs that were not prescribed by your health care provider for at least 24 hours after your discharge time. For Pediatric surgeries, we recommend two adults accompany the child home. Follow any additional instructions given to you from your surgeon. If you or anyone in your household have experienced Covid symptoms in the past week, please notify your surgeon or the nurse liaison at the phone number below for possible testing. Telephone instructions given to _PATIENT___and asked if any additional questions and then verbalized understanding. Patient advised to call surgeon office or pre surgery nurse liaison [phone] if any additional questions.
--- NOTE | ~2023-07-06 | XR_ITS ---
EXAMINATION: XR chest port-a-cath/central DATE: 07/06/2023 14:15 INDICATION: Port placement. TECHNIQUE: A single frontal view of the chest was obtained. COMPARISON: Chest 2 views 04/25/2023 FINDINGS: A calcified right lung nodule is consistent with old granulomatous disease. No pleural effu ricardo or pneumothorax. The heart size is normal. There is a left subclavian port with tip at superior cavoatrial junction. IMPRESSION: 1. Port tip at superior cavoatrial junction. . Reviewed, dictated and finalized at location A.
--- NOTE | ~2023-07-06 | XR_ITS ---
. EXAMINATION: XR fl guide central line place DATE: 07/06/2023 14:05 INDICATION: Port placement. TECHNIQUE: A single intraoperative fluoroscopic view of the chest was obtained. I was not present. Fl uoroscopy exposure time was 35 seconds. COMPARISON: Chest single view 07/06/2023 FINDINGS: There is a left subclavian port with tip at superior cavoatrial junction. IMPRESSION: 1. Port tip at superior cavoatrial junction. Reviewed, dictated and finalized at location A.
[2023-07-06 10:35] VITALS: BP 121/84; PULSE 77; RESP 18; TEMP 36.6; O2SAT 99; BMI 26.9
[2023-07-06] MEDS: LACTATED RINGERS 1,000 ML 30 ML IV CONT ×2 (11:05→13:52)
[2023-07-06] MEDS: KETOROLAC 15 MG/ML VIAL (*BKC) IV PUSH (11:16)
[2023-07-06 11:20] LABS: Basophils Absolute Auto 0.1 K/mm3 (0.0-0.1); Basophils Percent Auto 0.7 % (0.2-1.2); Eosinophils Absolute Auto 0.2 K/mm3 (0-0.3); Eosinophils Percent Auto 2.2 % (0-4.4); Hematocrit 47.8 % (42.0-52.0); Hemoglobin 15.5 g/dL (14.0-18.0); Immature Granulocyte Absolute 0.05 K/mm3 (0.00-0.031); Immature Granulocyte Percent A 0.5 % (0-0.5); Lymphocytes Percent Auto 24.6 % (18.3-44.2); Mean Corpuscular HGB Conc 32.4 g/dl (32-36); Mean Corpuscular Hemoglobin 31.8 pg (26-34); Mean Corpuscular Volume 98.2 fl (80-100); Mean Platelet Volume 9.7 fl (7.4-10.4); Monocytes Absolute Auto 0.8 K/mm3 (0.1-0.6); Neutrophils Absolute Auto 5.9 K/mm3 (1.3-6.7); Platelet Count Result 250 k/mm3 (150-375); Red Blood Count 4.87 M/mm3 (4.6-6.20); Red Cell Distribution Width 13.1 % (11.5-14.5); White Blood Count 9.4 K/mm3 (4.5-10.0)
[2023-07-06 11:30] LABS: Partial Thromboplastin Time 31.1 Seconds (22.3-36.8); Prothrombin Time 13.6 Seconds (11.1-14.7)
--- NOTE | 2023-07-06 11:42 | WPDANESEPPF ---
Anes - Initial Pre Proc Eval Procedure: Operation Date: 07/06/23 14:00 Proposed Procedures p Insertion Daron Cath - Nahid Jc MD Date/Time: 07/06/23 11:42 Surgeon: Nahid Jc MD Pre Op Diagnosis: malignant neoplasm of central portion Patient Data Age: 43 Gender: M Height: 1.83 m Weight: 90 kg Allergies Allergy/AdvReac Type Severity Reaction Status Date / Time No Known Allergies Allergy Verified 07/04/23 09:27 Home Medications Medication Instructions Recorded Confirmed Type alprazolam 0.25 mg tablet 0.25 mg PO PRN PRN Anxiety 07/04/23 07/04/23 History Laboratory Tests 07/06/23 11:04 WBC 9.4 K/mm3 (4.5-10.0) RBC 4.87 M/mm3 (4.6-6.20) Hgb 15.5 g/dL (14.0-18.0) Hct 47.8 % (42.0-52.0) MCV 98.2 fl (80-100) MCH 31.8 pg (26-34) MCHC 32.4 g/dl (32-36) RDW 13.1 % (11.5-14.5) Plt Count 250 k/mm3 (150-375) MPV 9.7 fl (7.4-10.4) Immature Gran % (Auto) 0.5 % (0-0.5) Neut % (Auto) 63.0 % (45.5-73.1) Lymph % (Auto) 24.6 % (18.3-44.2) [place] % (Auto) 9.0 H % (2.6-8.5) Eos % (Auto) 2.2 % (0-4.4) Baso % (Auto) 0.7 % (0.2-1.2) Lymph # (Auto) 2.30 K/mm3 (0.9-3.2) [place] # (Auto) 0.8 H K/mm3 (0.1-0.6) Eos # (Auto) 0.2 K/mm3 (0-0.3) Baso # (Auto) 0.1 K/mm3 (0.0-0.1) Abs Immat Gran (auto) 0.05 H K/mm3 (0.00-0.031) Absolute Neuts (auto) 5.9 K/mm3 (1.3-6.7) Absolute Nucleated RBC 0.000 K/mm3 (0.0-0.012) Nucleated RBC % 0.0 % (0.0-0.2) PT 13.6 Seconds (11.1-14.7) INR 1.0 APTT 31.1 Seconds (22.3-36.8) Patient hx anesthesia problems: none Family hx anesthesia problems: none Results Review: All pre-operative results and documents have been reviewed as part of the pre-operative evaluation. [facility] Past Medical History Medical History Anxiety Attention Deficit Hyperactivity Disorder (ADHD) Chronic low back pain Depression with anxiety Hx of renal calculi Surgical History Surgical History H/O ureteroscopy Family History Family History Mother Family history of malignant neoplasm of breast in first degree relative, Onset Age: 37 Other Carcinoma of colon Family history of arthritis Malignant neoplasm of prostate Social History Social History Smoking packs per day: 0.5 Smoking cigarettes per day: 10.0 Years smoked: 25 Smoking pack-years: 12.50 Smoking status: Current every day smoker Tobacco type: cigarettes Alcohol intake: former Alcohol use details: occasional Substance use: current Substance use type: marijuana Other substance usage details: DAILY Last use: 07/03/23 Living arrangements: with family Occupation/Education: occupation Additional occupation/education comments: [employer] Gender identity (if verbalized by the patient): Male Anes - Eval Final PreProcedure Day of Procedure 07/06/23 11:42 Patient weight: overweight Heart: regular rate and rhythm Lungs: clear to auscultation Airway: Mallampati scale class II Neurological: alert and oriented Last oral intake: >/= 8 hours ASA classification: III Emergent: no Anesthetic plan: proceed Anesthesia type and monitoring: general GIVS and standard monitoring Results Review: All pre-operative results and documents have been reviewed as part of the pre-operative evaluation. Informed Consent: The patient's anesthetic plan and its attendant risks and benefits were discussed with the patient/family/POA. Questions were solicited and answers provided to the satisfaction of the patient/family/POA.
--- NOTE | 2023-07-06 12:00 | SUR.PREOP ---
1200- Notified Dr. Ramirez patient had just begun chewing gum in pre-op room and this RN informed him that he could not have anything by mouth. Chewing gum spit out and per Dr. Ramirez OK to proceed with procedure.
--- NOTE | 2023-07-06 12:36 | WPDHPUPDATE1 ---
History and Physical Update Update Date/Time: 07/06/23 12:36 History and Physical has been reviewed, including an updated exam of the patient. There are NO changes in the patient's condition. Risks, benefits, and alternatives have been discussed and questions answered. Patient agrees to proceed with procedure.
[2023-07-06] MEDS: ceFAZolin 2 GM/D5W 50 ML 2 GM/50 ML BAG IVPB (13:01)
[2023-07-06] MEDS: HEPARIN SODIUM 1,000 UNITS/ML VIAL 1000 UNITS IV PUSH (13:24)
[2023-07-06] MEDS: BUPIVACAINE/EPINEPHRINE 0.5% 30 ML VIAL 15 ML INFILTRATE (13:25)
[2023-07-06 13:52] VITALS: BP 105/63; PULSE 65; RESP 14; O2SAT 99
[2023-07-06 14:15] VITALS: BP 95/59; PULSE 57; RESP 14; O2SAT 100
--- NOTE | 2023-07-06 14:44 | P.OP_ITS ---
Procedure Note - Detailed Date of Procedure 07/06/23 Pre-op Diagnosis Right breast cancer, inadequate venous access for chemotherapy Post-op Diagnosis Same Procedure Performed Placement left subclavian Port-A-Cath under fluoroscopy Surgeon Nahid Jc MD Set Up Operator [facility] Anesthesia MAC and Local Indications Patient is noted to have locally advanced right breast cancer. Gene tests show him to be positive for BRCA 2 mutation. He is to have primary systemic chemoth erapy and is taken to surgery now for placement of a Port-A-Cath for that purpose. Findings Tip of Port-A-Cath in distal SVC, right atrial junction. Description of Procedure Patient was taken to surgery and anesthesia was introduced. The left neck and left subclavian areas were prepped and draped. The proposed left subclavian incision was marked on the skin. Local was infiltrated into the skin and the deeper subcutaneous tissues. Incision was made and dissection was carried down through the pectoralis major fascia. A subfascial pocket was then created for the Port-A-Cath reservoir. Cautery was used for hemostasis. Additional local was infiltrated into the pectoralis major muscle and under the left subclavian. Patient was placed in steep Trendelenburg and the left subclavian vein was then cannulated. A guidewire was able to be passed into the superior vena cava. Patient was taken out of Trendelenburg and fluoroscopy confirmed the guidewire to be in the expected position. We then used fluoroscopy to measure the course of the Port-A-Cath tubing and length of tubing that would be needed. Port-A-Cath tubing was cut to the appropriate length. We then passed an introducer and sheath over the guidewire again under fluoroscopy. The guidewire and introducer were removed. The Port-A-Cath was passed through the sheath and into the distal SVC. The sheath was then removed. We checked the Port-A-Cath position under fluoroscopy. There were no kinks in the Port-A-Cath and appeared to be in the distal SVC, right atrial junction. Port-A-Cath was checked an aspirated blood easily and flushed readily with heparin. We sutured the Port-A-Cath through the pectoralis major muscle with 3-0 silk suture. Port-A-Cath was again checked and functioned well. The wound was closed with layered closure of 0 Vicryl suture. The skin was closed with running 4-0 Monocryl skin suture. The wound was dressed with Exofin surgical adhesive. Patient was awakened and taken to recovery in good condition. Sponge and needle counts were correct x2. Implants Left subclavian vortex Port-A-Cath Estimated Blood Loss -5 Drains No Packing No Pathology None sent Complications No immediate complications Condition Stable Disposition Same day [facility] Billing Surgery - Charge Forward: Surgery Billing (Placement left subclavian Port-A-Cath under fluoroscopy)
[2023-07-06 14:45] VITALS: BP 105/63; PULSE 52; RESP 16
== END 2023-07-06 15:10 | disposition home or self-care (01) ==
PROVIDERS: PCP Emergency Medicine; Visit Provider Surgery
PROC: (CPT 36561; principal; 2023-07-06 14:00)
DX: C50.921 Malignant neoplasm of unspecified site of right male breast (principal); F41.8 Other specified anxiety disorders; F17.210 Nicotine dependence, cigarettes, uncomplicated; F12.90 Cannabis use, unspecified, uncomplicated
CPT/HCPCS: 36561; 36415; 77001; 85025; 85610; 85730; C1788; J0690; J1644; J1885; J2250; J2405; J2704; J3010; J7030; J7120

== ENCOUNTER 2023-12-19 08:18 | Outpatient (CLI) | payer OTHER, SELFPAY ==
--- NOTE | 2023-12-19 08:00 | ECG_ITS ---
Test Date: 2023-12-19 08:40:57 Measurements Intervals [place] Rate: 66 P: 66 [place]: 161 QRS: -26 QRSD: 105 T: 61 QT: 347 QTc: 366 Interpretive Statements SINUS RHYTHM BORDERLINE R WAVE PROGRESSION, ANTERIOR LEADS BASELINE ARTIFACT- V4-V6 BORDERLINE ECG No previous ECG available for comparison Electronically Signed On 12-19-2023 09:36:56 CDT by Charanjit Martinez D.O.
== END 2023-12-19 08:19 | disposition home or self-care (01) ==
LOC: ANHSURGERY 08:22
PROVIDERS: PCP Emergency Medicine; Visit Provider Surgery
DX: Z01.818 Encounter for other preprocedural examination (principal); C50.921 Malignant neoplasm of unspecified site of right male breast
CPT/HCPCS: 36415; 86850; 86900; 86901; 93005

== ENCOUNTER 2023-12-20 14:35 | Observation (INO) | payer OTHER, SELFPAY ==
--- NOTE | 2023-12-13 10:24 | SUR.PREOP ---
Report to the Outpatient Waiting Room, entrance under the green pavilion located off [facility], at time 0700 on date 12/20/23. Planned Procedure Time: 0900.? Time changes happen often and if your time is changed the preop area will call you the afternoon before. - You and your visitor will be asked to self-screen and do not enter if you have any COVID symptoms. Please call surgeon if you need to reschedule. - A mask is optional within the hospital at this time. Patients may have clear liquids (water, carbonated beverages, clear teas, apple juice) until 3 hours prior to surgery with a maximum of 20 ounces. - NO CLEAR LIQUIDS AFTER 0600 - No food from midnight until time of surgery and no smoking - Infants may have breast milk until 4 hours before surgery, formula 6 hours prior to surgery. - Children will be allowed to drink immediately following surgery.? If applicable, please bring a bottle or sippy cup to assist with drinking. Juice, water, soda, and popsicles are readily available.? For infants on formula, please bring formula the day of surgery.? Pacifiers are allowed. Take only the following medications with a SIP of water on the morning of surgery: ALPRAZOLAM, SERTRALINE DO NOT STOP ANY OF YOUR OTHER PRESCRIPTION MEDICATIONS PRIOR TO SURGERY EXCEPT THE FOLLOWING Medications to discontinue per physician N/A Date to take last dose Please no make-up, nail occitan, hairspray, perfume, deodorant, or body powder the day of surgery.? No jewelry (including any body piercings) or valuables the day of surgery, leave them at home.? Please take a shower or bath the night before, or the morning of, surgery with an antibacterial soap.? Wear comfortable, loose fitting clothing.? Children are encouraged to wear pajamas. - Jewelry must be removed prior to entering the operating room.? Rings and piercings that are not removed may be cut off. - The hospital will not accept responsibility for valuables.? - Please leave all valuables, including medications, at home the day of surgery. If you are going home after surgery, a licensed truck driver helper must drive you home.? - NO public transportation without another adult if you receive anesthesia. - We recommend that an adult stay with you for 24 hours following discharge. - We also recommend that you do not drive, make important decision, drink alcoholic beverages, or take any drugs that were not prescribed by your health care provider for at least 24 hours after your discharge time. For Pediatric surgeries, we recommend two adults accompany the child home. Follow any additional instructions given to you from your surgeon. Telephone instructions given to NIKOLAS LEWIS and asked if any additional questions and then verbalized understanding. Patient advised to call surgeon office or pre surgery nurse liaison [phone] if any additional questions.
[2023-12-13 10:39] VITALS: BMI 27.0
[2023-12-20] VITALS (11 sets, daily range): BP systolic 122–158; BP diastolic 59–90; PULSE 58–89; RESP 10–18; TEMP 35.6–36.6; O2SAT 98–100; BMI 26.9
--- NOTE | ~2023-12-20 | NM_ITS ---
EXAMINATION: NM sentinel node inject only DATE: 12/20/2023 08:51 INDICATION: Right breast cancer TECHNIQUE: 1.057 mCi Tc-99m filtered sulfur colloid was injected in four aliquots in the anterior socorro ast near the areola. No images were obtained. IMPRESSION: 1. Right breast sentinel lymph node radiopharmaceutical injection. Reviewed, dictated and finalized at location A.
[2023-12-20] MEDS: LIDOCAINE/PRILOCAINE CREAM 2.5-2.5% TUBE 1 EACH TOPICAL (07:35)
[2023-12-20] MEDS: LACTATED RINGERS 1,000 ML 30 ML IV CONT ×2 (07:40→12:40)
[2023-12-20] MEDS: ACETAMINOPHEN 500 MG TABLET 1000 MG PO (07:59)
--- NOTE | 2023-12-20 08:01 | WPDANESEPPF ---
Anes - Initial Pre Proc Eval Procedure: Operation Date: 12/20/23 09:00 Proposed Procedures p Right Total Mastectomy, Possible Adjacent Tissue Transfer, Right [place] Lymph Node Biopsy with Lymphoseek, Possible Methylene Blue, Left Prophylactic Total Mastectomy with Possible Adjacent Tissue Transfer - Roseanna Beck MD Date/Time: 12/20/23 08:01 Surgeon: Roseanna Beck MD Pre Op Diagnosis: right breast CA Patient Data Age: 43 Gender: M Height: 1.83 m Weight: 90.4 kg Allergies Allergy/AdvReac Type Severity Reaction Status Date / Time exofin skin glue AdvReac Unknown Other Uncoded 12/20/23 08:04 Home Medications Medication Instructions Recorded Confirmed Type alprazolam 1 mg tablet 1 mg PO PRN PRN Anxiety 12/13/23 12/20/23 History sertraline 100 mg tablet 100 mg PO DAILY 12/13/23 12/20/23 History Patient hx anesthesia problems: other (Pt reports in the past he woke up w sites from multiple IVs noted, ribs hurting. Unclear etiology. Pt did not have CPR. ) Family hx anesthesia problems: none Results Review: All pre-operative results and documents have been reviewed as part of the pre-operative evaluation. [facility] Past Medical History Medical History Anxiety Attention Deficit Hyperactivity Disorder (ADHD) Chronic low back pain Depression with anxiety Hx of renal calculi Surgical History Surgical History H/O ureteroscopy Family History Family History Mother Family history of malignant neoplasm of breast in first degree relative, Onset Age: 37 Other Carcinoma of colon Family history of arthritis Malignant neoplasm of prostate Social History Social History Smoking packs per day: 0.5 Smoking cigarettes per day: 10.0 Years smoked: 25 Smoking pack-years: 12.50 Smoking status: Current every day smoker Tobacco type: cigarettes Alcohol intake: former Alcohol use details: occasional Substance use: current Substance use type: marijuana Other substance usage details: DAILY Last use: 07/03/23 Do You Feel Safe in your Home?: Yes Lack of Transportation: No Lack of Food: Never True Current Housing: I Have Housing Concerned About Future Housing: No Difficulty Paying Gas/Electric Bills: No Difficulty Paying for Meds: No Currently Unemployed: No Education: High School Diploma/GED Difficulty w/ Childcare or Family Care: No Living arrangements: with family Occupation/Education: occupation Additional occupation/education comments: [employer] Gender identity (if verbalized by the patient): Male Spiritual care concerns: No Anes - Eval Final PreProcedure Day of Procedure 12/20/23 08:01 Patient weight: normal Heart: regular rate and rhythm Lungs: clear to auscultation Airway: Mallampati scale class II and special considerations (Front lower incisor w receding gumline noted. ) Neurological: alert and oriented Last oral intake: >/= 8 hours ASA classification: II Emergent: no Anesthetic plan: proceed Anesthesia type and monitoring: general ETT and standard monitoring Results Review: All pre-operative results and documents have been reviewed as part of the pre-operative evaluation. Pt smokes 1/2 ppd for 25 years, smoked at 7 am today. Covid infection approx 2-4 weeks ago w recovery at this time. Informed Consent: The patient's anesthetic plan and its attendant risks and benefits were discussed with the patient/family/POA. Questions were solicited and answers provided to the satisfaction of the patient/family/POA.
--- NOTE | 2023-12-20 08:18 | WPDANESEPP ---
Anes - Eval Pre Procedure Procedure: Operation Date: 12/20/23 09:00 Proposed Procedures p Right Total Mastectomy, Possible Adjacent Tissue Transfer, Right [place] Lymph Node Biopsy with Lymphoseek, Possible Methylene Blue, Left Prophylactic Total Mastectomy with Possible Adjacent Tissue Transfer - Roseanna Beck MD Date/Time: 12/20/23 08:18 Surgeon: Kiran Pre Op Diagnosis: right breast CA Patient Data Age: 43 Gender: M Height: 1.83 m Weight: 90 kg Last Vital Signs Temp 97.0 F L 12/20/23 07:00 Pulse 89 12/20/23 07:00 Resp 16 12/20/23 07:00 BP 123/82 12/20/23 07:00 Pulse Ox 98 12/20/23 07:00 O2 Del Method Room Air 12/20/23 07:00 Allergies Allergy/AdvReac Type Severity Reaction Status Date / Time exofin skin glue AdvReac Unknown Other Uncoded 12/20/23 08:04 Home Medications Medication Instructions Recorded Confirmed Type alprazolam 1 mg tablet 1 mg PO PRN PRN Anxiety 12/13/23 12/20/23 History sertraline 100 mg tablet 100 mg PO DAILY 12/13/23 12/20/23 History ECG: est Date: 2023-12-19 08:40:57 Measurements Intervals [place] Rate: 66 P: 66 [place]: 161 QRS: -26 QRSD: 105 T: 61 QT: 347 QTc: 366 Interpretive Statements SINUS RHYTHM BORDERLINE R WAVE PROGRESSION, ANTERIOR LEADS BASELINE ARTIFACT- V4-V6 BORDERLINE ECG No previous ECG available for comparison Electronically Signed On 12-19-2023 09:36:56 CDT by Charanjit Martinez D.O. Dictated By: Charanjit Martinez DO 12/19/23 0840 Signed By: <Electronically signed by Charanjit Martinez DO in OV> Patient hx anesthesia problems: other (Pt reports in the past he woke up w sites from multiple IVs noted, ribs hurting. Unclear etiology. Pt did not have CPR. ) Family hx anesthesia problems: none Results Review: All pre-operative results and documents have been reviewed as part of the pre-operative evaluation. [facility] Past Medical History Medical History Anxiety Attention Deficit Hyperactivity Disorder (ADHD) Chronic low back pain Depression with anxiety Hx of renal calculi Surgical History Surgical History H/O ureteroscopy Family History Family History Mother Family history of malignant neoplasm of breast in first degree relative, Onset Age: 37 Other Carcinoma of colon Family history of arthritis Malignant neoplasm of prostate Social History Social History Smoking packs per day: 0.5 Smoking cigarettes per day: 10.0 Years smoked: 25 Smoking pack-years: 12.50 Smoking status: Current every day smoker Tobacco type: cigarettes Alcohol intake: former Alcohol use details: occasional Substance use: current Substance use type: marijuana Other substance usage details: DAILY Last use: 07/03/23 Do You Feel Safe in your Home?: Yes Lack of Transportation: No Lack of Food: Never True Current Housing: I Have Housing Concerned About Future Housing: No Difficulty Paying Gas/Electric Bills: No Difficulty Paying for Meds: No Currently Unemployed: No Education: High School Diploma/GED Difficulty w/ Childcare or Family Care: No Living arrangements: with family Occupation/Education: occupation Additional occupation/education comments: [employer] Gender identity (if verbalized by the patient): Male Spiritual care concerns: No Exam Day of Procedure 12/20/23 08:18
--- NOTE | 2023-12-20 09:10 | WPDHPUPDATE1 ---
History and Physical Update Update Date/Time: 12/20/23 09:10 - Right total mastectomy, left prophylactic mastectomy, right sentinel lymph node biopsy with Lymphoseek and possible methylene blue, possible adjacent tissue transfer. History and Physical has been reviewed, including an updated exam of the patient. There are NO changes in the patient's condition. Risks, benefits, and alternatives have been discussed and questions answered. Patient agrees to proceed with procedure.
[2023-12-20] MEDS: ceFAZolin 2 GM/D5W 50 ML 2 GM/50 ML BAG IVPB (09:28)
[2023-12-20] MEDS: METHYLENE BLUE 0.5% INJ 10 ML AMPULE IRRIGATION (09:34)
[2023-12-20] MEDS: BUPIVACAINE/EPINEPHRINE 0.5% 10 ML VIAL 40 ML INFILTRATE (09:34)
--- NOTE | 2023-12-20 12:23 | W.PM.PROC2 ---
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 Right total mastectomy (CPT 78633) 2. Right sentinel lymph node biopsy with lymphoseek (CPT 95950) 3. Methylene blue injection as dual tracer (CPT 86292) 4. Left prophylactic total mastectomy (CPT 37564) Surgeon Roseanna Beck MD Automation Operator Barbara Albarran PA-C Anesthesia General Description of Procedure Patient was taken to nuclear med for lymphoseek injection and brought back to the preop area where he was identified and marked He was then brought to the operating room suite. He was placed supine on the operating table sequential compression devices were applied. General endotracheal anesthesia was induced without difficulty. The bilateral chest areas and right axillary region were prepped and draped in a sterile fashion. Attention was then turned to the right breast. An elliptical incision was made encompassing the nipple areola complex and dissection was carried down through the subcutaneous tissue into the breast tissue. Care was taken to ensure that the previous palpable tumor was occluded within the skin resection specimen for the mastectomy. Dissection was then performed in the thin areolar tissue between the subcutaneous and the breast tissue, superiorly to the? inferior border of the clavicle, medial to the lateral aspect of the sternal border, laterally to the latissimus dorsi, and inferior to the inframammary fold down to the muscle. The? breast tissue along with the pectoralis fascia was then carefully dissected off the pectoralis muscle posteriorly.?Once the entire breast was excised, it was oriented with a short stitch superior and a long stitch lateral and sent to pathology as a fresh specimen. The cavity was irrigated and hemostasis was assured. The Neoprobe was then used to find an area of high radioactivity and the clavipectoral fascia was opened from the mastectomy incision exposing the axillary fat. A hot and blue lymph node was identified. This was gently grasped and excised using the LigaSure device. Once the node was excised count was a team using the Neoprobe of 192. The node was then sent to pathology as a fresh specimen. The Neoprobe was again used to scan the axilla looking for any nodes that had at least 10% of the radio activity and none were found. The axillary cavity was irrigated with saline hemostasis was assured. Attention was then turned to the left prophylactic side. An elliptical incision encompassing the nipple-areolar complex was made, and dissection was then carried out in the thin areolar tissue between the subcutaneous and the breast tissue, superiorly to the? inferior border of the clavicle, medial to the lateral aspect of the sternal border, laterally to the latissimus dorsi, and inferior to the inframammary fold down to the muscle. The? breast tissue along with the pectoralis fascia was then carefully dissected off the pectoralis muscle posteriorly.? Once the entire breast was excised, it was oriented with a short stitch superior and a long stitch lateral and sent to pathology as a fresh specimen. The cavity was irrigated and hemostasis was assured. One 14Fr NORBERTO drain was placed on each side just above the pectoralis muscle, and secured to the skin using a silk suture. We then proceed to close the mastectomy incisions bilaterally. Some extra skin was excised to achieve a flat aesthetic closure. The deep dermal layer was closed with interrupted 3-0 Vicryl and the skin was then closed with 4-0 Monocryl in a subcuticular fashion. Dermabond was applied followed by a sterile dressing and Armando wrap around the chest. Patient was awoken from anesthesia taken to the recovery area in stable condition. All needles, instruments, and sponge counts were correct as reported by the operating room st
--- NOTE | 2023-12-20 14:40 | ADMGEN ---
This patient, Matty Mello Jr., was admitted to [facility] Surg Room 326-01. Patient/family oriented to hospital policies and general routines including ID bracelet, bed and alarms, visiting hours, pain management, procedures, bathroom and other care routines, personal items, smoking policy, room service/diet, and visiting hours. Information on how to activate the Rapid Response Team has been discussed. Patient/Family are encouraged to report perceived risks to care and to ask questions if they do not understand what they are told or what they should do.
[2023-12-20] MEDS: HYDROmorphone HCL INJ (*CRX) 1 MG/ML SYR IV PUSH ×3 (14:47→19:25)
[2023-12-20] MEDS: HYDROcodone/acetaminophen (*CRX) 10-325 MG TABLET 1 TAB PO ×2 (15:45→22:49)
[2023-12-20] MEDS: DOCUSATE SODIUM 100 MG CAPSULE PO (16:54)
[2023-12-20] MEDS: ACETAMINOPHEN 325 MG TABLET 650 MG PO (16:55)
[2023-12-20] MEDS: diphenhydrAMINE HCl INJ 50 MG/ML VIAL 25 MG IV PUSH (20:42)
[2023-12-21] MEDS: ACETAMINOPHEN 325 MG TABLET 650 MG PO (00:47)
[2023-12-21 00:48] VITALS: BP 114/61; PULSE 56; RESP 16; TEMP 36.4; O2SAT 98
[2023-12-21] MEDS: HYDROmorphone HCL INJ (*CRX) 1 MG/ML SYR IV PUSH (02:28)
[2023-12-21] MEDS: HYDROmorphone HCL INJ (*CRX) 1 MG/ML SYR 0.5 MG IV PUSH (04:58)
[2023-12-21 05:52] VITALS: BP 115/65; PULSE 51; RESP 12; TEMP 36.3; O2SAT 97
[2023-12-21] MEDS: diphenhydrAMINE HCl INJ 50 MG/ML VIAL 25 MG IV PUSH (06:48)
[2023-12-21] MEDS: HYDROcodone/acetaminophen (*CRX) 10-325 MG TABLET 1 TAB PO (08:38)
[2023-12-21] MEDS: SERTRALINE HCL 50 MG TABLET 100 MG PO (08:38)
[2023-12-21] MEDS: DOCUSATE SODIUM 100 MG CAPSULE PO (08:38)
--- NOTE | 2023-12-21 13:16 | PM.PNGS ---
Progress Note: A&P Assessment and Plan (1) BRCA2 gene mutation positive in male: Code(s): Z15.01 - Genetic susceptibility to malignant neoplasm of breast; Z15.03 - Genetic susceptibility to malignant neoplasm of prostate; Z15.09 - Genetic susceptibility to other malignant neoplasm Status: Acute (2) Invasive ductal carcinoma of right male breast: Code(s): C50.921 - Malignant neoplasm of unspecified site of right male breast Status: Acute (3) Breast cancer in male: Qualifiers: Breast location: upper outer quadrant of breast Estrogen receptor status: positive Laterality: right Qualified Code(s): C50.421 - Malignant neoplasm of upper-outer quadrant of right male breast; Z17.0 - Estrogen receptor positive status [ER+] Code(s): C50.929 - Malignant neoplasm of unspecified site of unspecified male breast Status: Acute Plan 43 y/o male with R breast cancer s/p neoadjuvant chemo, recovering well POD#1 s/p bilateral total mastectomy with R SLNBx. Reviewed impression and healing expectations, reviewed signs/symptoms of concern. reviewed dressing/activity/drain/medication instructions. Plan 1) PO pain rx 2) drain care 3) dc home today 4) breast surg follow up 1 week in office Subjective Subjective Date/Time Seen: 12/21/23 07:30 Interval history: pt seen at bedside. pain well managed overnight, feels right drain discomfort after removing drain sponge, no other concerns. denies fever/chills, bleeding/redness, SOB, chest pain, MARIA, N/V/D, BLE pain, interval change in surgical site size. would like to be discharged home today. ambulating and voiding without issue, passing gas, no bowel movement. tolerating PO diet. Exam Narrative: pt sitting comfortably in bed Const: General: cooperative and healthy appearing Orientation/consciousness: oriented to person, oriented to place and oriented to time HENMT: Head: normal to inspection Eyes: Other: sclera anicteric Neck: Other: no JVD Chest: Other: surgical dressing c/d/i. drains in place, maintaining neg pressue, minimal dark sanguinous drainage bilaterally. bilateral chest incisions well approximated with dermabond in place, minimal diffuse mastectomy flap edema, no erythema, minimal distal left superior mastectomy flap ecchymosis. moderate diffuse tenderness bilaterally without masses or seroma/hematoma. Resp: Effort & Inspection: normal respiratory effort Objective Data Vital Signs Vital Signs: Vital Signs - 24 hr 12/20/23 13:25 12/20/23 13:40 12/20/23 13:55 Temperature Pulse Rate 60 60 67 Respiratory Rate 12 12 14 Blood Pressure 139/73 142/78 H 150/87 H Pulse Oximetry 100 100 100 Oxygen Delivery Simple Face Mask Simple Face Mask Room Air Oxygen Flow Rate 6 6 12/20/23 14:10 12/20/23 14:25 12/20/23 17:20 Temperature 36.6 C 35.6 C L Pulse Rate 63 68 60 Respiratory Rate 14 14 18 Blood Pressure 158/77 H 153/81 H 152/90 H Pulse Oximetry 100 100 100 Oxygen Delivery Room Air Room Air Oxygen Flow Rate 12/20/23 19:20 12/21/23 00:48 12/21/23 05:52 Temperature 36.3 C L 36.4 C 36.3 C L Pulse Rate 84 56 L 51 L Respiratory Rate 13 16 12 Blood Pressure 132/83 114/61 115/65 Pulse Oximetry 99 98 97 Oxygen Delivery Oxygen Flow Rate Intake/Output Intake/Output: Intake & Output 12/18/23 12/19/23 12/20/23 12/21/23 23:59 23:59 23:59 23:59 Intake Total 1350 1040 Output Total 70 55 Balance 1280 985 Meds/Results Radiology Results: ITS Impressions [place] Node 12/20/23 08:53 IMPRESSION: 1. Right breast sentinel lymph node radiopharmaceutical injection.
== END 2023-12-21 09:15 | disposition home or self-care (01) ==
LOC: ANH3MEDSUR 14:39
PROVIDERS: Admitting Provider Surgery; PCP Emergency Medicine; Visit Provider Surgery
PROC: (CPT 19303; principal; 2023-12-20 09:00)
DX: C50.421 Malignant neoplasm of upper-outer quadrant of right male breast (principal); C77.3 Secondary and unspecified malignant neoplasm of axilla and upper limb lymph nodes; Z17.0 Estrogen receptor positive status [ER+]; Z15.01 Genetic susceptibility to malignant neoplasm of breast; Z15.03 Genetic susceptibility to malignant neoplasm of prostate; F17.210 Nicotine dependence, cigarettes, uncomplicated; F41.8 Other specified anxiety disorders; Z80.3 Family history of malignant neoplasm of breast; Z92.21 Personal history of antineoplastic chemotherapy; Z86.16 Personal history of COVID-19
CPT/HCPCS: 19303; 38525; 38900; 38792; 88305; 88307; 88342; A9270; A9520; G0378; G0379; J0690; J1100; J1170; J1200; J2250; J2405; J2704; J3010; J7120; Q9968

== ENCOUNTER 2023-12-25 11:47 | Emergency (ER) | payer OTHER, SELFPAY ==
--- NOTE | ~2023-12-25 | XR_ITS ---
EXAMINATION: XR chest 1V portable 12/25/2023 12:43 INDICATION: Fever PROCEDURE: AP portable chest COMPARISON: 07/06/2023 FINDINGS: The lungs are clear. Portacatheter tip in the SVC. The cardiomediastinal silhouette is with in normal limits. There are no pleural effusions. There is no pneumothorax suspected. IMPRESSION: 1: NO ACUTE CARDIOPULMONARY DISEASE. Reviewed, dictated and finalized at location B.
[2023-12-25 12:07] VITALS: BP 151/108; PULSE 78; RESP 18; TEMP 36.5; O2SAT 100
--- NOTE | 2023-12-25 12:19 | ED.GENADULT ---
HPI - General Adult General Chief complaint: Nausea/Vomiting/Diarrhea Stated complaint: fever, chills, vomiting Time Seen by Provider: 12/25/23 12:17 Source: patient Mode of arrival: ambulatory Limitations: no limitations History of Present Illness HPI narrative: 43 YEARS OLD WHITE MALE CAME TO THE ED COMPLAINING OF NOT FEELING GOOD TODAY, FEELING HOT, HEADACHE, NAUSEA, VOMITING, DIARRHEA RHINOVIRUS EXPOSURE IN THE LAST FEW DAYS, PATIENT IS STATUS POST BILATERAL MASTECTOMY 6 DAYS AGO, PATIENT WAS TESTED POSITIVE FOR COVID 2 WEEKS AGO, CURRENTLY COMPLAINING OF RUNNY NOSE, COUGHING, TRIGGER TROUBLE BREATHING. LAST CHEMOTHERAPY WAS NOVEMBER 19, 2023 PATIENT REPORTS A LOT OF STRESS, TROUBLE SLEEPING, THINKING ABOUT WAS TO GO DOWN TO MUCH, BEEN ON ANTIDEPRESSION MEDICATION WHICH PROBABLY NOT WORKING Related Data Home Medications Medication Instructions Recorded Confirmed alprazolam 1 mg tablet 1 mg PO PRN PRN Anxiety 12/13/23 12/20/23 sertraline 100 mg tablet 100 mg PO DAILY 12/13/23 12/20/23 Allergies Allergy/AdvReac Type Severity Reaction Status Date / Time exofin skin glue AdvReac Unknown Other Uncoded 12/20/23 08:04 Review of Systems Review of Systems: All systems reviewed & are unremarkable except as noted in HPI and below PMFSH Past Medical History Medical History Anxiety Attention Deficit Hyperactivity Disorder (ADHD) Chronic low back pain Depression with anxiety Hx of renal calculi Surgical History Surgical History H/O ureteroscopy Family History Family History Mother Family history of malignant neoplasm of breast in first degree relative, Onset Age: 37 Other Carcinoma of colon Family history of arthritis Malignant neoplasm of prostate Social History Social History Smoking packs per day: 0.5 Smoking cigarettes per day: 10.0 Years smoked: 25 Smoking pack-years: 12.50 Smoking status: Current every day smoker Tobacco type: cigarettes Alcohol intake: former Alcohol use details: occasional Substance use: current Substance use type: marijuana Other substance usage details: DAILY Last use: 12/20/23 Do You Feel Safe in your Home?: Yes Lack of Transportation: No Lack of Food: Never True Current Housing: I Have Housing Concerned About Future Housing: No Difficulty Paying Gas/Electric Bills: No Difficulty Paying for Meds: No Currently Unemployed: No Education: High School Diploma/GED Difficulty w/ Childcare or Family Care: No Living arrangements: with family Occupation/Education: occupation Additional occupation/education comments: [employer] Gender identity (if verbalized by the patient): Male Spiritual care concerns: No Exam Narrative: GENERAL APPEARANCE: WELL-DEVELOPED, WELL-NOURISHED SKIN: NORMAL COLOR, REMOVING SURGICAL DRESSING ON THE CHEST SHOWED THAT THE SURGICAL SCAR IS DRY AND CLEAN, SLIGHT ERYTHEMATOUS CHANGES AROUND, DID DRAIN BOTTLES CONTAIN CLEAR, PINKISH DRAIN, CONSISTENT WITH SUSPECTED NORMAL DRAIN. HEAD: NORMOCEPHALIC, NONTRAUMATIC EYES: CLEAR CONJUNCTIVA ENT: OROPHARYNX NORMAL, EARS NORMAL, NOSE NORMAL NECK: SUPPLE, NONTENDER CHEST AND RESPIRATORY: AIRWAY PATENT, NO RESPIRATORY DISTRESS, NO ACCESSORY MUSCLE USE HEART: REGULAR RATE/RHYTHM ABDOMEN: SOFT, NONTENDER, NO ORGANOMEGALY, QUIET BOWEL SOUNDS VASCULAR: NORMAL PERIPHERAL PULSES, NORMAL CAPILLARY REFILL. MUSCULOSKELETAL: NORMAL RANGE OF MOTION, NONTENDER BACK NEUROLOGIC: ALERT AND ORIENTED ?3, DIE DESIGNER IS NORMAL TESTED, NO GROSS MOTOR DEFICIT
--- NOTE | 2023-12-25 13:01 | PC.NURSE ---
Pt requesting to give some time prior to starting IV and giving ordered meds. Pt instructed to use call light when he is ready for the tx. Fluids primed and at bedside. at bedside. Pt is A&Ox4, upright, skin is pink/warm/dry.
[2023-12-25 13:27] LABS: Influenza A QL RT-PCR Negative (Negative); Influenza B QL RT-PCR Negative (Negative); RSV RNA, RT-PCR Negative (Negative); SARS-CoV-2 RNA PCR Negative (Negative)
[2023-12-25] MEDS: SODIUM CHLORIDE 0.9% IV 1,000 ML 999 ML IV CONT (13:51)
[2023-12-25 13:53] LABS: Prothrombin Time 13.9 Seconds (11.1-14.7)
[2023-12-25 13:54] LABS: Partial Thromboplastin Time 29.9 Seconds (22.3-36.8)
[2023-12-25 13:57] LABS: Lactic Acid Reflex 1.1 mmol/L (0.7-2.0)
[2023-12-25 13:58] LABS: Basophils Percent Auto 0.4 % (0.2-1.2); Eosinophils Absolute Auto 0.2 K/mm3 (0-0.3); Eosinophils Percent Auto 1.5 % (0-4.4); Hematocrit 42.5 % (42.0-52.0); Hemoglobin 14.4 g/dL (14.0-18.0); Immature Granulocyte Percent A 0.9 % (0-0.5); Lymphocytes Percent Auto 20.1 % (18.3-44.2); Mean Corpuscular HGB Conc 33.9 g/dl (32-36); Mean Corpuscular Volume 106.3 fl (80-100); Mean Platelet Volume 9.6 fl (7.4-10.4); Monocytes Absolute Auto 0.9 K/mm3 (0.1-0.6); Monocytes Percent Auto 8.2 % (2.6-8.5); Neutrophils Absolute Auto 7.5 K/mm3 (1.3-6.7); Neutrophils Percent Auto 68.9 % (45.5-73.1); Platelet Count Result 216 k/mm3 (150-375); White Blood Count 10.9 K/mm3 (4.5-10.0)
[2023-12-25 14:00] LABS: CRP 1.3 mg/dL (<1.0); Lipase 87 U/L (23-300)
[2023-12-25 14:09] LABS: Macrocytosis 1+ (NORMAL); Platelet Estimate Adequate (Adequate); Schistocytes None Seen
[2023-12-25 14:10] LABS: Alanine Aminotransferase 25 U/L (6-50); Albumin Level 4.8 g/dL (3.5-5.1); Alkaline Phosphatase 77 U/L (38-126); Anion Gap 8 mmol/L (4-12); Aspartate Amino Transferase 32 U/L (17-59); Bilirubin,Total 0.7 mg/dL (0.2-1.3); Blood Urea Nitrogen 15 mg/dL (9-20); Calcium 10.1 mg/dL (8.4-10.2); Carbon Dioxide 26 mmol/L (22-30); Chloride 102 mmol/L (98-107); Estimated CRCL calculation 111 ml/min; Estimated Glomerular Filt Rate > 60; Glucose 104 mg/dL (65-110); Potassium 4.2 mmol/L (3.4-5.0); Sodium 136 mmol/L (137-145)
[2023-12-25 14:52] LABS: Add Urine Microscopic? YES; Appearance Urine Clear (Clear); Bacteria Urine None Seen /hpf; Bilirubin Urine Negative (Negative); Blood Urine Negative (Negative); Color Urine Yellow (Yellow); Glucose Urine UA Negative (Negative); Ketones Urine Trace mg/dL (Negative); Leukocyte Esterase Ur Trace LEU/UL (Negative); Nitrate Urine Negative (Negative); Non Pathogenic Casts 0-2; Protein Urine Trace mg/dL (Negative); RBC Urine 0-2 /hpf (0-2); Specific Grav Ur 1.031 (1.001-1.035); Squamous Epithelial Cell Urine None Seen /hpf (Few); pH Urine 7.5 (5.0-9.0)
[2023-12-25] MEDS: LORazepam INJ (*CRX) 2 MG/ML VIAL 1 MG IV PUSH (15:07)
[2023-12-25] MEDS: VANCOMYCIN 1,250 MG/NS 250 ML 1,250 MG/250 ML BAG 200 MG IVPB (15:07)
[2023-12-25 15:12] VITALS: BP 134/84; PULSE 63; RESP 18; O2SAT 100
[2023-12-25 16:09] VITALS: BP 137/82; PULSE 65; RESP 15; O2SAT 100
== END 2023-12-25 16:33 | disposition home or self-care (01) ==
PROVIDERS: Emergency Provider Emergency Medicine; PCP Emergency Medicine
DX: B34.9 Viral infection, unspecified (principal); F41.8 Other specified anxiety disorders; Z48.01 Encounter for change or removal of surgical wound dressing; C50.921 Malignant neoplasm of unspecified site of right male breast; Z90.13 Acquired absence of bilateral breasts and nipples; Z20.822 Contact with and (suspected) exposure to COVID-19; F90.9 Attention-deficit hyperactivity disorder, unspecified type; Z87.442 Personal history of urinary calculi; F17.210 Nicotine dependence, cigarettes, uncomplicated; Z86.16 Personal history of COVID-19; Z79.899 Other long term (current) drug therapy; Z79.60 Long term (current) use of unspecified immunomodulators and immunosuppressants
CPT/HCPCS: 36415; 71045; 80053; 81001; 83605; 83690; 85025; 85610; 85730; 86140; 87040; 87086; 87088; 87637; 96361; 96365; 96375; 99284; J2060; J3370; J7030

== ENCOUNTER 2024-01-16 11:01 | Outpatient (CLI) | payer OTHER, SELFPAY ==
--- NOTE | ~2024-01-16 | US_ITS ---
US breast LT limited 01/16/2024 11:40 Indication: Left breast lump. Status post bilateral mastectomy on 12/20/2023 Procedure: High-resolution Limited ultrasound of the left breast Comparison: No prior studies for comparison. Findings: There is a complex fluid collection in the mastectomy bed with heterogeneous internal echot exture measuring 3.1 x 1.5 x 0.7 cm, likely postoperative seroma/hematoma. Impression: 1: Probable benign postoperative seroma/hematoma in the left mastectomy bed measuring 3.1 x 1.5 x 0.7 cm. BI-RADS CATEGORY 3-PROBABLY BENIGN FINDING RECOMMENDATION: 2-3 month interval follow-up ultrasound recommended Reviewed, dictated and finalized at location B. Impression: 1: Probable benign postoperative seroma/hematoma in the left mastectomy bed kathryn suring 3.1 x 1.5 x 0.7 cm. BI-RADS CATEGORY 3-PROBABLY BENIGN FINDING RECOMMENDATION: 2-3 month interval follow-up ultrasound recommended
== END 2024-01-16 11:02 | disposition home or self-care (01) ==
LOC: ANHIMG 11:02
PROVIDERS: PCP Emergency Medicine; Visit Provider Surgery
DX: C50.921 Malignant neoplasm of unspecified site of right male breast (principal); C50.929 Malignant neoplasm of unspecified site of unspecified male breast; N63.23 Unspecified lump in the left breast, lower outer quadrant; Z15.01 Genetic susceptibility to malignant neoplasm of breast; Z15.03 Genetic susceptibility to malignant neoplasm of prostate; Z15.09 Genetic susceptibility to other malignant neoplasm; Z90.13 Acquired absence of bilateral breasts and nipples; R92.8 Other abnormal and inconclusive findings on diagnostic imaging of breast
CPT/HCPCS: 76642

== ENCOUNTER 2024-02-09 08:42 | Emergency (ER) | payer OTHER, SELFPAY ==
--- NOTE | ~2024-02-09 | US_ITS ---
EXAMINATION: US right upper quadrant DATE: 02/09/2024 10:13 INDICATION: Right upper quadrant abdominal pain. TECHNIQUE: Multiple grayscale and Doppler ultrasound images of the abdomen were obtained. COMPARISON: CT abdomen and pelvis 02/09/2024 FINDINGS: The visualized portions of the head and body of the pancreas are normal. The liver is reji l without focal lesion. There is normal flow in main portal vein. The gallbladder is normal in size. No gallstones or gallbladder wall thickening. There is no sonographic Freeman's sign. The common duct is normal and measures 3 mm. IMPRESSION: 1. Normal right upper quadrant ultrasound. Reviewed, dictated and finalized at location A. STEWARD
--- NOTE | ~2024-02-09 | CT_ITS ---
EXAMINATION: CT abdomen pelvis w con DATE: 02/09/2024 10:19 INDICATION: Epigastric and right upper quadrant abdominal pain. TECHNIQUE: Computed tomography (CT) of the abdomen and pelvis was performed with 100 mL Omnipaque 350 intravenous contrast. Automated exposure control and iterative reconstruction technique were employe d. The dose-length product was 688.68 mGy-cm. COMPARISON: CT abdomen and pelvis 02/28/2022, PET/CT 06/28/23 FINDINGS: The visualized portions of lung bases demonstrate mild atelectasis. No pleural effusion. Th e heart size is normal. No pericardial effusion. There are cysts in the liver measuring up to 4 mm. T here are 8 mm and 13 mm hyperenhancing masses in right hepatic lobe. The gallbladder is normal. Calci fications in the spleen are consistent with old granulomatous disease. The pancreas and adrenal gland s are normal. There are cysts in the kidneys measuring up to 14 mm on the right. There are 5 stones i n right kidney measuring up to 4 mm. There are 8 stones in left kidney measuring up to 5 mm. There is a left inguinal hernia containing fat. There are no dilated loops of bowel. The appendix is normal. There are no pathologically enlarged lymph nodes. There is no free intraperitoneal fluid. There is mi ld thoracic and lumbar spondylosis. There is mild chronic anterior wedging of L2 vertebral body. IMPRESSION: 1. 13 mm and 8 mm hyperenhancing liver masses. The differential diagnosis includes focal nodular hype rplasia, hemangiomas, and less likely metastatic disease. 2. Bilateral nonobstructing kidney stones. 3. Left inguinal hernia containing fat. Reviewed, dictated and finalized at location A. [employer] CONSULTANT IMPRESSION: 1. 13 mm and 8 mm hyperenhancing liver masses. The differential diagnosis inclu josephine focal nodular hyperplasia, hemangiomas, and less likely metastatic disease. 2. Bilateral nonobstructing kidney stones. 3. Left inguinal hernia containing fat.
[2024-02-09 08:53] VITALS: BP 136/89; PULSE 86; RESP 18; TEMP 36.6; O2SAT 98
[2024-02-09 09:08] LABS: Basophils Percent Auto 0.8 % (0.2-1.2); Eosinophils Absolute Auto 0.2 K/mm3 (0-0.3); Eosinophils Percent Auto 3.2 % (0-4.4); Hematocrit 44.2 % (42.0-52.0); Hemoglobin 14.8 g/dL (14.0-18.0); Immature Granulocyte Absolute 0.06 K/mm3 (0.00-0.031); Immature Granulocyte Percent A 1.1 % (0-0.5); Lymphocytes Absolute Auto 0.86 K/mm3 (0.9-3.2); Lymphocytes Percent Auto 16.3 % (18.3-44.2); Mean Corpuscular HGB Conc 33.5 g/dl (32-36); Mean Corpuscular Hemoglobin 34.7 pg (26-34); Mean Corpuscular Volume 103.8 fl (80-100); Mean Platelet Volume 9.3 fl (7.4-10.4); Monocytes Absolute Auto 0.6 K/mm3 (0.1-0.6); Monocytes Percent Auto 10.8 % (2.6-8.5); Neutrophils Absolute Auto 3.6 K/mm3 (1.3-6.7); Neutrophils Percent Auto 67.8 % (45.5-73.1); Platelet Count Result 176 k/mm3 (150-375); Red Blood Count 4.26 M/mm3 (4.6-6.20); Red Cell Distribution Width 12.7 % (11.5-14.5); White Blood Count 5.3 K/mm3 (4.5-10.0)
[2024-02-09 09:13] LABS: Add Urine Microscopic? YES; Appearance Urine Clear (Clear); Bacteria Urine None Seen /hpf; Bilirubin Urine Negative (Negative); Blood Urine Negative (Negative); Color Urine Yellow (Yellow); Glucose Urine UA Negative (Negative); Ketones Urine Negative (Negative); Leukocyte Esterase Ur Trace LEU/UL (Negative); Nitrate Urine Negative (Negative); Non Pathogenic Casts 0-2; Protein Urine Negative (Negative); RBC Urine 0-2 /hpf (0-2); Squamous Epithelial Cell Urine None Seen /hpf (Few); Urobilinogen Urine 0.2 mg/dL (<2.0); WBC Urine 0-5 /hpf (0-3)
[2024-02-09 09:24] LABS: Alanine Aminotransferase 27 U/L (6-50); Albumin Level 4.8 g/dL (3.5-5.1); Alkaline Phosphatase 76 U/L (38-126); Anion Gap 6 mmol/L (4-12); Aspartate Amino Transferase 28 U/L (17-59); Bilirubin,Total 0.4 mg/dL (0.2-1.3); Blood Urea Nitrogen 16 mg/dL (9-20); Calcium 9.8 mg/dL (8.4-10.2); Carbon Dioxide 32 mmol/L (22-30); Chloride 99 mmol/L (98-107); Estimated CRCL calculation 94 ml/min; Estimated Glomerular Filt Rate > 60; Glucose 103 mg/dL (65-110); Lipase 440 U/L (23-300); Potassium 4.3 mmol/L (3.4-5.0); Sodium 137 mmol/L (137-145)
--- NOTE | 2024-02-09 09:36 | ED_ITS ---
HPI - Abdominal Pain General Chief Complaint: Abdominal Pain Stated Complaint: abd pain Time Seen by Provider: 02/09/24 09:01 History of Present Illness HPI narrative: 43-year-old male with history of anxiety, depression, ADHD and breast cancer presents to the emergency department for epigastric/right upper quadrant abdominal pain for 2 weeks. Patient reports associated nausea and vomiting but states this is been going on for approximately 1 year. He has been attributing the nausea and vomiting to anxiety but has never had abdominal pain associated with until 2 weeks ago. states the pain in the right upper quadrant waxes and wanes. He cannot identify any aggravating or alleviating factors. He does have his gallbladder. He denies chest pain or shortness of breath, dysuria or hematuria , diarrhea. States his last bowel movement was this morning and normal. He was diagnosed with right-sided breast cancer and was broke up positive in May of 2023. Patient underwent 6 months of chemotherapy starting in June of 2023 but has been off chemotherapy for couple of months. He then had a double mastectomy in November of 2023. States he did have a positive sentinel lymph node drain mastectomy and is now on radiation daily for 25 treatments. He is currently on is 12. His oncologist is Dr. Booth. additionally, the patient states he underwent an EGD earlier this year that was unremarkable. Related Data Home Medications Medication Instructions Recorded Confirmed alprazolam 1 mg tablet 1 mg PO PRN PRN Anxiety 12/13/23 12/20/23 sertraline 100 mg tablet 100 mg PO DAILY 12/13/23 12/20/23 hydroxyzine HCl 25 mg tablet mg 01/06/24 hydroxyzine HCl 25 mg tablet mg 01/06/24 Allergies Allergy/AdvReac Type Severity Reaction Status Date / Time exofin skin glue AdvReac Unknown Other Uncoded 01/16/24 14:16 Review of Systems Review of Systems: All systems reviewed & are unremarkable except as noted in HPI and below PMFSH Past Medical History Medical History Anxiety Attention Deficit Hyperactivity Disorder (ADHD) Chronic low back pain Depression with anxiety Hx of renal calculi Surgical History Surgical History H/O ureteroscopy Family History Family History Mother Family history of malignant neoplasm of breast in first degree relative, Onset Age: 37 Other Carcinoma of colon Family history of arthritis Malignant neoplasm of prostate Social History Social History Smoking packs per day: 1 Smoking cigarettes per day: 20.0 Years smoked: 25 Smoking pack-years: 25.00 Smoking status: Current every day smoker Tobacco type: cigarettes Second hand tobacco smoke exposure: No Alcohol intake: former Alcohol use details: occasional Substance use: current Substance use type: marijuana Other substance usage details: DAILY Last use: 12/20/23 Do You Feel Safe in your Home?: Yes Lack of Transportation: No Lack of Food: Never True Current Housing: I Have Housing Concerned About Future Housing: No Difficulty Paying Gas/Electric Bills: No Difficulty Paying for Meds: No Currently Unemployed: No Education: High School Diploma/GED Difficulty w/ Childcare or Family Care: No Living arrangements: with family Occupation/Education: occupation Additional occupation/education comments: [employer] Gender identity (if verbalized by the patient): Male Spiritual care concerns: No Exam Narrative: GENERAL: anxious-appearing, well-nourished, and in no acute distress. HEAD: Normocephalic, atraumatic. EYES: EOMI. ENT: Nares clear, no rhinorrhea or epistaxis. Mucous membranes moist. NECK: Supple. CHEST: Clear to auscultation. No respiratory distress. HEART: Regular rate and rhythm. No murmur heard. Normal peripheral pulses. ABDOMEN: normoactive bowel sounds. Abdomen soft with tenderness in the epigastrium and right upper quadrant. Negative Freeman sign. No rebound, guarding rigidity. No CVA tenderness. EXTREMITIES: Normal range of motion. No edema. SKIN: Warm, dry, no rash. NEURO: No focal deficits. Alert and oriented x3 Course Vital Signs Vital signs: Vital Signs Temperature 97.8 F 02/09/24 08:53 Pulse Rate 86 02/09/24 08:53 Respiratory Rate 18 02/09/24 08:53 Blood Pressure 136/89 02/09/24 08:53 Pulse Oximetry 98 02/09/24 08:53 Temperature 97.8 F 02/09/24 08:53 Pulse Rate 71 02/09/24 10:00 Respiratory Rate 18 02/09/24 10:00 Blood Pressure 146/85 H 02/09/24 10:00 Pulse Oximetry 98 02/09/24 10:00 MDM - Abdominal Pain MDM Narrative Medical decision making narrative: 43-year-old male presents to the emergency department for epigastric/right upper quadrant abdominal pain with associated nausea and vomiting for 2 weeks. See HPI for further history. Triage vitals are stable. Patient is afebrile nontoxic appearing. He does appear anxious on exam. Abdominal exam is significant for the above. CBC without leukocytosis or anemia. Chemistries show bicarb of 32, normal anion gap. UA with trace leuk esterase , no other signs of UTI. Lipase is mildly elevated at 440. LFTs are unremarkable with normal bilirubin. Right upper quadrant ultrasound is unremarkable. CT abdomen pelvis shows a 13 mm and 8 mm hyper enhancing liver masses with differential including focal nodular hyperplasia, angiomas and less likely metastatic disease. There is bilateral nonobstructing kidney stones and a left inguinal hernia containing fat. EKG shows sinus bradycardia rate of 57 ppm, no ischemic changes. Troponin is unremarkable. Patient updated on workup. He received IV fluids, Pepcid, Reglan and Toradol with improvement. I did discuss the liver masses with patient's oncologist, Dr. Booth, given patient's history of metastatic cancer. Dr. Booth agrees to follow the patient up closely for further evaluation. The patient does have an appointment with his oncologist in 4 days which I strongly encouraged to attend. I suspect his symptoms may be secondary to mild case of pancreatitis, likely from radiation therapy. Patient feels safe to be discharged home and is tolerating p.o. intake in the ED. Encouraged clear liquid diet and will provide [place] for breakthrough pain, Reglan (zofran does not work for him), encouraged follow-up with PCP . Strict ED return precautions discussed. He is agreeable w ith the plan verbalized understanding. Discharged in stable condition. Lab Data 02/09/24 08:59 02/09/24 08:59 Labs: Lab Results 02/09/24 02/09/24 Range/Units 08:59 09:04 WBC 5.3 (4.5-10.0) K/mm3 RBC 4.26 L (4.6-6.20) M/mm3 Hgb 14.8 (14.0-18.0) g/dL Hct 44.2 (42.0-52.0) % MCV 103.8 H (80-100) fl MCH 34.7 H (26-34) pg MCHC 33.5 (32-36) g/dl RDW 12.7 (11.5-14.5) % Plt Count 176 (150-375) k/mm3 MPV 9.3 (7.4-10.4) fl Immature Gran % (Auto) 1.1 H (0-0.5) % Neut % (Auto) 67.8 (45.5-73.1) % Lymph % (Auto) 16.3 L (18.3-44.2) % [place] % (Auto) 10.8 H (2.6-8.5) % Eos % (Auto) 3.2 (0-4.4) % Baso % (Auto) 0.8 (0.2-1.2) % Lymph # (Auto) 0.86 L (0.9-3.2) K/mm3 [place] # (Auto) 0.6 (0.1-0.6) K/mm3 Eos # (Auto) 0.2 (0-0.3) K/mm3 Baso # (Auto) 0.0 (0.0-0.1) K/mm3 Abs Immat Gran (auto) 0.06 H (0.00-0.031) K/mm3 Absolute Neuts (auto) 3.6 (1.3-6.7) K/mm3 Absolute Nucleated RBC 0.000 (0.0-0.012) K/mm3 Nucleated RBC % 0.0 (0.0-0.2) % Sodium 137 (137-145) mmol/L Potassium 4.3 (3.4-5.0) mmol/L Chloride 99 (98-107) mmol/L Carbon Dioxide 32 H (22-30) mmol/L Anion Gap 6 (4-12) mmol/L BUN 16 (9-20) mg/dL Creatinine 1.00 (0.7-1.3) mg/dL Estim Creat Clear Calc 94 ml/min Estimated GFR > 60 (59 - ) Glucose 103 (65-110) mg/dL Calcium 9.8 (8.4-10.2) mg/dL Total Bilirubin 0.4 (0.2-1.3) mg/dL AST 28 (17-59) U/L ALT 27 (6-50) U/L Alkaline Phosphatase 76 (38-126) U/L Troponin I < 0.012 (0.000-0.034) ng/mL Total Protein 8.0 (6.3-8.2) g/dL Albumin 4.8 (3.5-5.1) g/dL Lipase 440 H (23-300) U/L Urine Color Yellow (Yellow) Urine Appearance Clear (Clear) Urine pH 7.0 (5.0-9.0) Ur Specific [place] 1.020 (1.001-1.035) Urine Protein Negative (Negative) mg/dL Urine Glucose (UA) Negative (Negative) mg/dL Urine Ketones Negative (Negative) mg/dL Ur Blood (Man) Negative (Negative) Urine Nitrate Negative (Negative) Urine Bilirubin Negative (Negative) Urine Urobilinogen 0.2 (<2.0) mg/dL Leukocyte Esterase Rfl Trace H (Negative) DON/UL Urine RBC 0-2 (0-2) /hpf Urine WBC 0-5 (0-3) /hpf Ur Squamous Epith Cells None seen (Few) /hpf Urine Bacteria None seen /hpf Urine Casts 0-2 Imaging Data Radiologist's impression: ITS Impressions Upper Quadrant Ultrasound 02/09/24 10:24 IMPRESSION: 1. Normal right upper quadrant ultrasound. Abdomen/Pelvis CT 02/09/24 10:27 IMPRESSION: 1. 13 mm and 8 mm hyperenhancing liver masses. The differential diagnosis includes focal nodular hyperplasia, hemangiomas, and less likely metastatic disease. 2. Bilateral nonobstructing kidney stones. 3. Left inguinal hernia containing fat. Discharge Plan Discharge Clinical Impression: Elevated lipase, Abdominal pain, acute, epigastric, Liver masses Patient Disposition: Home, Self-Care Condition: Stable Instructions: Antibiotic Form, Pancreatitis (ED) Additional Instructions: Your evaluated in the emergency department for right upper quadrant/ epigastric abdominal pain. Your workup shows a mildly elevated lipase which may represent inflammation of your pancreas, likely due from radiation. Please take the medications needed for breakthrough pain, Reglan for nausea and follow-up closely with your primary care provider and oncologist. Incidentally on the CT scan your also found to have a 13 mm and 8 mm mass in your liver. Please follow-up with Dr. Lomax for further evaluation. Return to the emergency department if you develop worsening pain, your unable to tolerate food or flui ds, fever, or other concerning symptoms. Prescriptions: New hydrocodone-acetaminophen 5-325 mg tablet 1 tablet PO Q8H PRN (Reason: pain) Qty: 14 0RF metoclopramide HCl 10 mg tablet 10 mg PO Q6H PRN (Reason: nausea and vomiting) Qty: 10 0RF No Action hydroxyzine HCl 25 mg tablet hydroxyzine HCl 25 mg tablet alprazolam 1 mg tablet 1 mg PO PRN PRN (Reason: Anxiety) sertraline 100 mg tablet 100 mg PO DAILY Follow-up/Referrals: Artur Booth MD [Physician] - 1 Day UNKNOWN,DOCTOR [Primary Care Provider] -
--- NOTE | 2024-02-09 09:38 | ECG_ITS ---
Test Date: 2024-02-09 10:23:33 Measurements Intervals [place] Rate: 57 P: 58 VT: 165 QRS: -30 QRSD: 94 T: 57 QT: 391 QTc: 383 Interpretive Statements SINUS BRADYCARDIA INCOMPLETE RIGHT BUNDLE BRANCH BLOCK DELAYED PRECORDIAL R/S TRANSITION CONSIDER INFERIOR INFARCT, AGE INDETERMINATE ABNORMAL ECG Compared to ECG 12/19/2023 08:40:57 HEART RATE HAS DECREASED Electronically Signed On 02-09-2024 11:58:41 [facility] by Charanjit Martinez D.O.
[2024-02-09] MEDS: SODIUM CHLORIDE 0.9% IV 1,000 ML 999 ML IV CONT (09:48)
[2024-02-09] MEDS: KETOROLAC 15 MG/ML VIAL (*BKC) IV PUSH (09:49)
[2024-02-09] MEDS: FAMOTIDINE 20 MG/2 ML VIAL IV PUSH (09:49)
[2024-02-09] MEDS: METOCLOPRAMIDE HCL INJ 10 MG/2 ML VIAL IV PUSH (09:49)
[2024-02-09 10:00] VITALS: BP 146/85; PULSE 71; RESP 18; O2SAT 98
[2024-02-09 10:13] LABS: Troponin I < 0.012 ng/mL (0.000-0.034)
[2024-02-09 12:05] VITALS: BP 139/85; PULSE 72; RESP 14; O2SAT 97
== END 2024-02-09 12:06 | disposition home or self-care (01) ==
PROVIDERS: Student in an Organized Health Care Education/Training Program; Emergency Provider Physician Assistant
DX: R10.13 Epigastric pain (principal); R16.0 Hepatomegaly, not elsewhere classified; R74.8 Abnormal levels of other serum enzymes; C50.921 Malignant neoplasm of unspecified site of right male breast; F90.9 Attention-deficit hyperactivity disorder, unspecified type; F41.8 Other specified anxiety disorders; F17.210 Nicotine dependence, cigarettes, uncomplicated; Z92.21 Personal history of antineoplastic chemotherapy; Z87.442 Personal history of urinary calculi; Z90.13 Acquired absence of bilateral breasts and nipples; Z79.899 Other long term (current) drug therapy; K40.90 Unilateral inguinal hernia, without obstruction or gangrene, not specified as recurrent; N20.0 Calculus of kidney; I45.10 Unspecified right bundle-branch block; R00.1 Bradycardia, unspecified
CPT/HCPCS: 36415; 74177; 76705; 80053; 81001; 83690; 84484; 85025; 93005; 96361; 96374; 96375; 99284; J1885; J2765; J7030; Q9967

== ENCOUNTER 2024-02-29 11:58 | Outpatient (CLI) | payer OTHER, SELFPAY ==
--- NOTE | 2024-02-29 | ECHO_ITS ---
Patient Info Name: Matty Mello Age: 43 years : 1980 Gender: Male Ht: 72 in Wt: 200 lbs BSA: 2.16 m2 HR: 61 bpm Heart Rhythm: Sinus Rhythm Technical Quality: Fair Exam Date: 02/29/2024 12:28 PM Exam Location: Echo Lab Patient Status: Outpatient Admit Date: 02/29/2024 Staff Ordering Physician: Artur Booth MD [employer] Maintainer: Flaco Vazquez RDCS Attending Provider: Artur Booth MD Referring Physician: Emmy MEZA; Exam Type: CA echo doppler color flow Study Info Indications C50.121 - Malignant neoplasm of central portion of right male breast - Encounter for Chemotherapy management Complete two-dimensional, color flow and Doppler transthoracic echocardiogram is performed. Strain analysis performed. Summary 1. Complete two-dimensional, color flow and Doppler transthoracic echocardiogram is performed. 2. Strain analysis performed. 3. Left ventricular chamber dimension is normal. 4. Left ventricular systolic function is normal, estimated at 60-65%. 5. There is no increased left ventricular wall thickness. 6. The left ventricular diastolic function is normal. 7. Global longitudinal strain is normal at -21 %. 8. There is mild tricuspid valve regurgitation. Left Ventricle Left ventricular chamber dimension is normal. Left ventricular systolic function is normal, estimated at 60-65%. There is no increased left ventricular wall thickness. The left ventricular diastolic function is normal. Global longitudinal strain is normal at -21 %. Right Ventricle Right ventricular chamber dimension is normal. Right ventricular systolic function is normal. Left Atria Left atrial chamber dimension is normal. Right Atria Right atrial chamber dimension is normal. Atrial Septum Intact interatrial septum visualized by color flow imaging. Aortic Valve The aortic valve is trileaflet. There is mild aortic valve sclerosis. There is no aortic valve stenosis. There is trace aortic valve regurgitation. Pulmonic Valve The pulmonic valve is normal. There is no pulmonic valve stenosis. There is trace pulmonic regurgitation. Mitral Valve The mitral valve has normal leaflets. There is no mitral valve stenosis. There is trace mitral valve regurgitation. Tricuspid Valve The tricuspid valve leaflets are normal. There is no significant tricuspid valve stenosis. There is mild tricuspid valve regurgitation. No pulmonary hypertension, estimated pulmonary arterial systolic pressure is 28 mmHg. Pericardium/Pleural The pericardium appears normal. There is no pericardial effusion. Inferior Vena Cava Normal inferior vena cava with <50% collapse upon inspiration consistent with normal right atrial pressure, 10 mmHg. Aorta The aortic root size at the sinus of Valsalva is normal. Left Ventricular Outflow Tract Name Value Normal LVOT 2D LVOT Diameter 2.0 cm LVOT Doppler LVOT Peak Velocity 122 cm/s LVOT Peak Gradient 6 mmHg LVOT Mean Gradient 2 mmHg LVOT VTI 23 cm LVOT VTI/AV VTI Ratio 0.9 LVOT Stroke Volume 75 ml LVOT CO 4.0 l/min LVOT CI 1.9 l/min/m2 Pulmonic Valve Name Value Normal PV Doppler PV Peak Velocity 83 cm/s PV Peak Gradient 3 mmHg Mitral Valve Name Value Normal MV Doppler MV Decel Dixon 266 cm/s2 MV PHT 68 ms MV Area (PHT) 3.2 cm2 4.0-5.0 MV Diastolic Function MV E Peak Velocity 62 cm/s MV A Peak Velocity 43 cm/s MV E/A 1.4 MV Decel Time 235 ms Tricuspid Valve Name Value Normal TV Regurgitation Doppler TR Peak Velocity 211 cm/s TR Peak Gradient 15 mmHg Estimated PAP/RSVP RA Pressure 10 mmHg <=5 PA Systolic Pressure 28 mmHg <36 RV Systolic Pressure 28 mmHg <36 TV Annular TDI TV Lateral Tina s' Velocity 10.4 cm/s 9.5-18.7 Aorta Name Value Normal Ascending Aorta Ao Root Diameter (MM) 2.9 cm Ao Root Diam Index (MM) 1.3 cm/m2 Aortic Valve Name Value Normal AV Doppler AV Peak Velocity 134 cm/s AV Peak Gradient 7 mmHg AV Mean Gradient 3 mmHg AV VTI 26 cm AV Area (Cont Eq VTI) 2.9 cm2 >=3.0 AV Area (Cont Eq Jesse) 2.9 cm2 AV V1/V2 Ratio 0.91 AV Regurgitation 2D LVOT Area 3.2 cm2 Ventricles Name Value Normal LV Dimensions 2D/MM IVS Diastolic Thickness (2D) 0.8 cm 0.6-1.0 IVS Diastole Thickness (MM) 0.7 cm 0.6-1.0 LVID Diastole (2D) 4.7 cm 4.2-5.8 LVID Diastole (MM) 5.0 cm 4.2-5.8 LVIW Diastolic Thickness (2D) 0.9 cm 0.6-1.0 LVIW Diastolic Thickness (MM) 0.8 cm 0.6-1.0 LVID Systole (2D) 2.9 cm 2.5-4.0 LVID Systole (MM) 3.1 cm 2.5-4.0 LVOT Diameter 2.0 cm LV Mass (2D Cubed) 135.09 g 88.00-224.00 LV Mass Index (2D Cubed) 63 g/m2 49-115 Relative Wall Thickness (2D) 0.38 LV Mass (MM Cubed) 129.27 g 88.00-224.00 LV Mass Index (MM Cubed) 60 g/m2 49-115 Relative Wall Thickness (MM) 0.34 LV Fractional Shortening/Ejection Fraction 2D/MM LV Fractional Shortening (2D) 39 % 25-43 LV Fractional Shortening (MM) 37 % 25-43 LV EF (MM Teicholz) 67 % 52-72 LV EF (2D Teicholz) 69 % 52-72 LV Diastolic Volume (4C MOD) 93 ml LV EF (4C MOD) 60 % LV Diastolic Volume (2C MOD) 84 ml LV EF (2C MOD) 63 % LV Diastolic Volume (BP MOD) 89 ml 62-150 LV Diastolic Volume Index (BP MOD) 41 ml/m2 34-74 LV Systolic Volume (BP MOD) 34 ml 21-61 LV Systolic Volume Index (BP MOD) 16 ml/m2 11-31 LV EF (BP MOD) 62 % 52-72 LV Diastolic Length (4C) 8.4 cm LV Systolic Length (4C) 6.8 cm LV Stroke Volume (4C MOD) 56 ml Atria Name Value Normal LA Dimensions LA Dimension (MM) 3.3 cm 3.0-4.1 LA Volume (4C A-L) 34 ml LA Volume (BP A-L) 42 ml RA Dimensions RA Area (4C) 18.7 cm2 <=18.0 EchoPAC Name Value Normal NARA AA peak sys SL (AWMA) 27.2 % AAS peak sys SL (AWMA) 30.1 % AI peak sys SL (AWMA) 31.5 % AL peak sys SL (AWMA) 23.9 % AP peak sys SL (AWMA) 26.1 % peak sys SL (AWMA) 32.2 % AVC (AWMA) 360 ms BA peak sys SL (AWMA) 12.7 % BAS peak sys SL (AWMA) 9.0 % BI peak sys SL (AWMA) 10.9 % BL peak sys SL (AWMA) 15.8 % BP peak sys SL (AWMA) 13.0 % BS peak sys SL (AWMA) 12.7 % G peak SL(A2C) (AWMA) 20.5 % G peak SL(A4C) (AWMA) 20.8 % G peak SL(APLAX) (AWMA) 20.1 % G peak SL(Avg) (AWMA) 20.5 % MA peak sys SL (AWMA) 22.1 % MAS peak sys SL (AWMA) 22.8 % IA peak sys SL (AWMA) 21.3 % ML peak sys SL (AWMA) 20.3 % MP peak sys SL (AWMA) 19.6 % MS peak sys SL (AWMA) 23.1 % Report Signatures
== END 2024-02-29 11:59 | disposition home or self-care (01) ==
LOC: ANHCARD 11:59
PROVIDERS: PCP Nurse Practitioner Family; Visit Provider Internal Medicine Hematology & Oncology
DX: C50.121 Malignant neoplasm of central portion of right male breast (principal); Z17.0 Estrogen receptor positive status [ER+]
CPT/HCPCS: 93306

== ENCOUNTER 2024-03-07 07:38 | Outpatient (CLI) | payer OTHER, SELFPAY ==
[2024-03-01 14:36] VITALS: BMI 27.1
--- NOTE | 2024-03-01 14:37 | PC.NURSE ---
Pre Radiology instructions Report to the outpatient jose miguel mara on date _[id number]_ at time _0730_ for procedure Time: _929_ YOU MAY BE MONITORED AT HOSPITAL FOR UP TO 4 HOURS AFTER YOUR PROCEDURE. A visitor will be allowed to accompany the patient into the hospital. You and your visitor will be asked to self-screen and do not enter if you have any COVID symptoms. A mask is OPTIONAL within the hospital. Patients are to have no food or drink 6 hours prior to procedure time Driving will be restricted after the procedure, you must have a person to drive you home. Labs will be drawn in preop area and once reviewed, you will be taken to radiology area for procedure. When the procedure is completed, you will be taken to outpatient where you will be monitored for several hours. You may have one visitor in this area. Other than holding anti-coagulants, patient may take other medication(s) as scheduled. Prior to your appointment date patients are instructed to hold anti-coagulants after discussing with ordering provider to stop. If unable to discontinue anti-coagulants please notify radiologist. ? No aspirin or warfarin (Coumadin) for 7 days prior to the procedure. ? No clopidogrel (Plavix), ticagrelor (Brilinta), prasugrel (Effient) or dabigatran (Pradaxa) for 5 days prior to the procedure. ? No rivaroxaban (Xarelto), apixaban (Eliquis), dipyridamole (Aggrenox or Persantine) or cilostazol (Pletal) for 2 days prior to the procedure. Medications to discontinue per physician: ___None Date to take last dose: Please leave all valuables, including medications, at home the day of procedure. The hospital will not accept responsibility for valuables. Wear comfortable, loose fitting clothing.? Follow any additional instructions given to you from ordering provider. Telephone instructions given to _Matty_and asked if any additional questions and then verbalized understanding. Patient advised to call scheduling provider office or registration scheduling [phone] if any additional questions.
[2024-03-07] VITALS (12 sets, daily range): BP systolic 92–138; BP diastolic 65–77; PULSE 51–76; RESP 14–16; TEMP 36.5; O2SAT 94–99
--- NOTE | ~2024-03-07 | US_ITS ---
EXAMINATION: US biopsy liver DATE: 03/07/2024 10:17 INDICATION: Liver mass TECHNIQUE: The procedure including the risks and benefits was discussed with the patient. Risks discu ssed included bleeding and infection. The patient understood the risks and agreed to proceed. The sk in overlying the liver was prepped and draped in usual sterile fashion. Anesthetic was administered with 1% lidocaine subcutaneously. An 18 gauge core biopsy needle was advanced under continuous ultra sound observation to the lesion of interest. 3 core biopsy specimens were obtained. The needle was removed and the entry site was cleaned and dressed. Post procedure ultrasound demonstrated no hemorr iman. FINDINGS: Ultrasound images demonstrate an 8 mm hyperechoic nodule along the caudal tip of the right hepatic lobe. Subsequent images demonstrate the biopsy needle advanced through the nodule. IMPRESSION: 1. Successful Ultrasound-guided biopsy of an 8 mm hyperechoic nodule at the caudal right hepatic lobe . Reviewed, dictated and finalized at location A. ING DOCK HELPER IMPRESSION: 1. Successful Ultrasound-guided biopsy of an 8 mm hyperechoic nodule at the cau telma right hepatic lobe.
[2024-03-07 08:25] LABS: Mean Platelet Volume 9.8 fl (7.4-10.4); Platelet Count Result 166 k/mm3 (150-375)
[2024-03-07 08:47] LABS: INR 1.1; Prothrombin Time 14.7 Seconds (11.1-14.7)
[2024-03-07] MEDS: oxyCODONE HCL (*CRX) 5 MG TAB IR PO (10:28)
== END 2024-03-07 14:22 | disposition home or self-care (01) ==
PROVIDERS: PCP Nurse Practitioner Family; Referring Provider Internal Medicine Hematology & Oncology; Visit Provider Radiology Diagnostic Radiology
PROC: BF45ZZZ Ultrasonography of Liver (ICD-10-PCS; CPT 47000; principal; 2024-03-07 09:30)
DX: K76.89 Other specified diseases of liver (principal)
CPT/HCPCS: 36415; 47000; 76942; 85049; 85610; 88307; 88312; 88313; A9270

== ENCOUNTER 2024-04-27 10:10 | Outpatient (CLI) | payer OTHER, SELFPAY ==
--- NOTE | ~2024-04-27 | CT_ITS ---
EXAMINATION: CT abdomen pelvis w con DATE: 04/27/2024 10:42 INDICATION: Right upper quadrant abdominal pain. TECHNIQUE: Computed tomography (CT) of the abdomen and pelvis was performed with 100 mL Omnipaque 350 intravenous contrast. Automated exposure control and iterative reconstruction technique were employe d. The dose-length product was 443.51 mGy-cm. COMPARISON: CT abdomen and pelvis 02/09/2024 FINDINGS: The visualized portions of the lung bases demonstrate mild atelectasis. No pleural effusion . The heart size is normal. No pericardial effusion. There is a 5 mm cyst in the liver. The gallbladd er is normal. Calcifications in the spleen are consistent with old granulomatous disease. The pancrea s and adrenal glands are normal. There are cysts in the kidneys measuring up to 14 mm on the right. T here are approximately 6 stones in right kidney measuring up to 6 mm. There are approximately 6 stone s in left kidney measuring up to 9 mm. There are no dilated loops of bowel. The appendix is normal. T here are no pathologically enlarged lymph nodes. There is a left inguinal hernia containing fat. Ther e is no free intraperitoneal fluid. There is mild thoracic and lumbar spondylosis. IMPRESSION: 1. Bilateral nonobstructing kidney stones. 2. Left inguinal hernia containing fat. Reviewed, dictated and finalized at location A. ING MANAGEMENT CONSULTING MANAGER
--- OUTSIDE RECORDS SUMMARY | 2024-04-27 10:27 | XMS_ITS | Patient Health Summary ---
Author Organization [facility] Address [address] [place] [address] Care Team Providers Care Mba Intern Name Role Phone Omkar Díaz MD Primary Care Provider [phone] Note from [facility],non-owned Affiliates and Associated Physician Practices is amultiple site organization consisting of ambulatory clinics and hospital sitesin [place], [place], [place] and [place]. This disclosure is being madepursuant to the Care Everywhere program and may not contain all information available regarding this patient. Last updated 17.[facility] Allergies No known active allergies Medications Be aware that medications may not be up to date on this document. Always verify current medications with the patient. No known medications Active Problems Problem Noted Date Diagnosed Date Malignant neoplasm of centra l portion of right breast in female, estrogen receptor positive 06/21/2023 Cancer Staging:Clinical stage from 06/02/2023:Stage IB(cT2, cN0, cM0, G3, ER+, TN+, HER2+) - Signed by Elizabeth Iqbal MD on 06/21/2023 Social History Tobacco Use Types Packs/Day Years Used Date Smoking Tobacco: Every Day Cigarettes Smokeless Tobacco: Current Sex and Gender Information Value Date Recorded Sex Assigned at Not on file Gender Identity Not on file Sexual Orientation Not on file Last Filed Vital Signs Vital Sign Reading Time Taken Comments Blood Pressure 134/82 06/21/2023 9:21 AM CDT Pulse 87 06/21/2023 9:21 AM CDT Temperature 36.8 ??C (98.3 ??F) 06/21/2023 9:21 AM CD T Respiratory Rate - - Oxygen Saturation 99% 06/21/2023 9:21 AM CDT Inhaled Oxygen Concentration - - Weight 92.4 kg (203 lb 12.8 oz) 06/21/2023 9:21 AM CDT Height 182.9 cm (6') 06/21/2023 9:21 AM CDT Body Mass Index 27.64 06/21/2023 9:21 AM CDT Care Teams Mba Intern Relationship Specialty Start Date End Date Omkar Díaz MD [address] [place] [id number] PCP - General Family Medicine 06/21/23
--- OUTSIDE RECORDS SUMMARY | 2024-04-27 10:27 | XMS_ITS | Referral Summary ---
Author Organization [facility] [employer] Address [address] [place] [address] Care Team Providers Care Duty Manager Name Role Phone Omkar Díaz MD Primary Care Provider [phone] Source Comments [facility],non-owned Affiliates and Associated Physician Practices is amultiple site organization consisting of ambulatory clinics and hospital sitesin [place], [place], [place] and [place]. This disclosure is being madepursuant to the Care Everywhere program and may not contain all information available regarding this patient. Last updated 17.[facility] Allergies No known active allergies Medications Be aware that medications may not be up to date on this document. Always verify current medications with the patient. No known medications Active Problems Problem Noted Date Diagnosed Date Malignant neoplasm of centra l portion of right breast in female, estrogen receptor positive 06/21/2023 Cancer Staging:Clinical stage from 06/02/2023:Stage IB(cT2, cN0, cM0, G3, ER+, CO+, HER2+) - Signed by Elizabeth Iqbal MD [...] Mass Index 27.64 06/21/2023 9:21 AM CDT Plan of Treatment Not on file Care Teams Duty Manager Relationship Specialty Start Date End Date Omkar Díaz MD [facility] [address] [facility] [address] [place] [address] PCP - General Family Medicine 06/21/23
--- OUTSIDE RECORDS SUMMARY | 2024-04-27 10:27 | XMS_ITS | Continuity of Care Document ---
Author Organization [facility] Address [address] [place] [address] Phone Care Team Providers Care Clerk Checker Name Role Phone Raudel, Edward Unavailable Unavailable Advance Directives Directive Yes / No Effective Date File Name No Information Encounters Encounter Description Practice Location Reason(s) For Visit Diagnoses Date Provider Providers Copied on Encounter [facility], [address], [place], [place], [id number], [place] tel:[phone] [facility] No Information May- 9-200 [address] Doisy Edward. [address] , [address], [place], [address], [place]. tel:[phone] Family History Family Member Type Diagnosis Age At Onset No Information Payers Payer name Insurance type Covered constitution party ID Authorjasona neeraj(s) [employer] [id number] Social History Type Description Quantity Date Captured Comments Sex Male Smoking Status No Information Chief Complaint And Reason For Visit No Information Reason For Referral Reason For Referral No Information History Of Present Illness Encounter Date Complaint History Of Prese nt Illness No Information Functional Status Date Functional Assessmen t No Information Instructions Date Instruction Additional Infor mation No Information Assessments Type Assessment Date No Information Patient Care Teams Name Effective Dates (start - stop) Status Members No Information
--- OUTSIDE RECORDS SUMMARY | 2024-04-27 10:27 | XMS_ITS | Clinical Summary ---
Author Organization [facility] Kadi figueroa [facility] Address [address] [place] [address] Care Team Providers Care Ammonium Nitrate Neutralizer Name Role Phone Omkar Díaz MD Primary Care Provider [phone] Allergies No known active allergies Medications filgrastim (NEUPOGEN) 300 mcg/0.5 mL Syringe injection syringeIndicatio ns:Malignant neoplasm of central portion of right breast in male, estrogen receptor positive (CMS/HCC) Inject 0.5 mL (300 mcg) by subcutaneous injection the week after treatment on Tuesday, Tuesday, Tuesday. 0.5 mL 3 07/14/19 24 Active prochlorperazine maleate (COMPAZINE) 10 mg tablet Take 1 Tablet (10 mg) by mouth every 6 hours as needed for Nausea/Emesis. 90 Tablet 1 07/19/19 24 Active ALPRAZolam (Xanax) 1 mg tabletIndication s:Anxiety state Take 1 Tablet (1 mg) by mouth nightly as needed for Anxiety. 30 Tablet 07/19/19 24 Active Additional Information Patient taking differently: 2 mgOral NIGHTLY PRN, Anxiety, Reported on 02/13/2024 sertraline (ZOLOFT) 50 mg tablet Take 100 mg by mouth daily. Active hydrOXYzine HCL (ATARAX) 25 mg tablet Take 1 Tablet (25 mg) by mouth every 8 hours as needed for Itching. 30 Tablet 1 10/06/19 24 Active mometasone (ELOCON) 0.1 % Cream Apply to affected area daily. 45 Gram 3 01/24/20 24 Active lidocaine-priloc susan (EMLA) 2.5-2.5 % Cream APPLY TOPICALLY TO THE AFFECTED AREA DIRECTED 30 Gram 02/13/20 24 Active metoclopramide HCl (REGLAN) 10 mg tablet Take 1 Tablet by mouth every 6 hours. 02/09/20 24 Active silver sulfADIAZINE (SILVADENE) 1 % Cream Apply to affected area BID to evenly cover the whole area. 25 Gram 03/06/20 24 Active anastrozole (ARIMIDEX) 1 mg tablet Take 1 Tablet (1 mg) by mouth daily. 30 Tablet 1 03/23/20 24 Active HYDROcodone-acet aminophen (NORCO) 7.5-325 mg TabletIndication s:Malignant neoplasm of central portion of right breast in male, estrogen receptor positive (CMS/HCC) Take 1 Tablet by mouth every 4 hours as needed for Pain, Moderate. Max Daily Amount: 6 Tablets 60 Tablet 04/13/19 25 Active naloxone (NARCAN) 4 mg/spray [place], Non-Aerosol EMERGENCY USE ONLY: Administer 1 spray (4 mg) in one nostril one time. May repeat in alternating nostrils every 2-3 min until responsive or EMS arrives. 2 Each 3 04/13/19 25 Active HYDROcodone-acet aminophen (NORCO) 5-325 mg tabletIndication s:Malignant neoplasm of central portion of right breast in male, estrogen receptor positive (CMS/HCC) Take 1 Tablet by mouth every 8 hours as needed for Pain. Max Daily Amount: 3 Tablets 60 Tablet 03/19/20 24 025 Discontinu ed(Alterna te therapy prescribed ) HYDROcodone-acet aminophen (NORCO) 7.5-325 mg TabletIndication s:Malignant neoplasm of central portion of right breast in male, estrogen receptor positive (CMS/HCC) Take 1 Tablet by mouth every 4 hours as needed for Pain, Moderate. Max Daily Amount: 6 Tablets 20 Tablet 04/11/19 25 025 Discontinu ed(Reorder ) Active Problems Problem Noted Date Diagnosed Date Mediastinal mass 07/25/2023 Encounters Date Type Department Care Team Description 04/19/2024 External Device Data STL ABSTRACTION Provider, Abstract 04/17/2024 Abstract [facility] Oncology and Hematology - [address] [place] [address] Artur Booth MD 04/16/2024 Orders Only [facility] Oncology and Hematology - Lan [address] [place] [address] Artur Booth MD Malignant neoplasm of central portion of right breast in male, estrogen receptor positive (CMS/HCC) 04/13/2024 9:15 AM DRILL PRESS TENDER Office Visit [facility] Oncology and Hematology - [address] [place] [address] Artur Booth MD Right upper quadrant abdominal pain (Primary Dx); Malignant neoplasm of central portion of right breast in male, estrogen receptor positive (CMS/HCC) 04/13/2024 Orders Only [facility] Oncology and Hematology - [address] [place] [address] Artur Booth MD 04/11/2024 Refill [facility] Oncology and Hematology - [address] [place] [address] Jose Cox MD Malignant neoplasm of central portion of right breast in male, estrogen receptor positive (CMS/HCC) 04/10/2024 External Device Data STL ABSTRACTION Provider, Abstract 04/02/2024 Orders Only [facility] Oncology and Hematology - Lan [address] [place] [address] Artur Booth MD Malignant neoplasm of central portion of right breast in male, estrogen receptor positive (CMS/HCC) 03/23/2024 8:30 AM DRILL PRESS TENDER Office Visit [facility] Oncology and Hematology - [address] [place] [address] Jose Cox MD Malignant neoplasm of central portion of right breast in male, estrogen receptor positive (CMS/HCC) (Primary Dx) 03/19/2024 Telephone [facility] Oncology and Hematology - [address] [place] [address] Jose Cox MD Medication Problem 03/19/2024 Orders Only [facility] Oncology and Hematology - Lan [address] [place] [phone] Artur Booth MD Malignant neoplasm of central portion of right breast in male, estrogen receptor positive (CMS/HCC) 03/18/2024 Refill [facility] Oncology and Hematology - [address] [place] [address] Artur Booth MD Malignant neoplasm of central portion of right breast in male, estrogen receptor positive (CMS/HCC) 03/13/2024 4:30 PM DRILL PRESS TENDER Telephone Check Up [facility] Oncology and Hematology - [address] [place] [address] Artur Booth MD 03/09/2024 Telephone [facility] Cardiovas and Thor Surg at [address] [place] [address] Ishmael Camara MD Information 03/09/2024 Orders Only [facility] Oncology and Hematology - [address] [place] [address] Artur Booth MD 03/06/2024 Refill [facility] Oncology and Hematology - [address] [place] [address] Artur Booth MD 03/05/2024 Orders Only [facility] Oncology and Hematology - [address] [place] [address] Artur Booth MD Malignant neoplasm of central portion of right breast in male, estrogen receptor positive (CMS/HCC) 03/01/2024 Orders Only [facility] Oncology and Hematology - Lan [address] [place] [address] Artur Booth MD 02/29/2024 Refill [facility] Oncology and Hematology - [address] [place] [address] Artur Booth MD Malignant neoplasm of central portion of right breast in male, estrogen receptor positive (CMS/HCC) 02/28/2024 Orders Only [facility] Oncology and Hematology [facility] [place] [facility] [address] [place] [phone] Artur Booth MD Encounter for chemotherapy management (Primary Dx); Malignant neoplasm of central portion of right breast in male, estrogen receptor positive (CMS/HCC) 02/22/2024 2:45 PM DRILL PRESS TENDER Office Visit [facility] Cardiovas and Thor Surg at [address] [place] [address] Ishmael Camara MD Mediastinal mass (Primary Dx) 02/20/2024 Orders Only [facility] Oncology and Hematology [facility] [place] [facility] [address] [place] [phone] Artur Booth MD Malignant neoplasm of central portion of right breast in male, estrogen receptor positive (CMS/HCC) 02/15/2024 Orders Only [facility] Oncology and Hematology [facility] [place] [facility] [address] [place] [address] Artur Booth MD 02/14/2024 Orders Only [facility] Oncology and Hematology [facility] [place] [facility] [address] [place] [address] Artur Booth MD 02/13/2024 8:45 AM DRILL PRESS TENDER Office Visit [facility] Oncology and Hematology [facility] [place] [facility] [address] [place] [phone] Artur Booth MD Liver mass (Primary Dx); Malignant neoplasm of central portion of right breast in male, estrogen receptor positive (CMS/HCC) 02/12/2024 Refill [facility] Oncology and Hematology [facility] [place] [facility] [address] [place] [address] Artur Booth MD 02/06/2024 Orders Only [facility] Oncology and Hematology [facility] [place] [facility] [address] [place] [address] Artur Booth MD Malignant neoplasm of central portion of right breast in male, estrogen receptor positive (CMS/HCC) 01/30/2024 External Device Data STL ABSTRACTION Provider, Abstract from Last 3 Months Family History Medical History Relation Name Comments Heart Disease Father Breast Cancer Mother Relation Name Status Comments Father Mother Sister Alive Social History Tobacco Use Types Packs/Day Years Used Date Smoking Tobacco: Every Day Cigarettes 0.5 28.1 Started: 1996 Smokeless Tobacco: Never Tobacco Cessation:Ready to Q uit: Not Asked; Counseling Given: Not Answered Alcohol Use Standard Drinks/Week Comments Yes 0 (1 standard drink = 0.6 oz pur e alcohol) rarely Sex and Gender Information Value Date Recorded Sex Assigned at Not on file Legal Sex Male 9:03 AM CDT Gender Identity Not on file Sexual Orientation Not on file Last Filed Vital Signs Vital Sign Reading Time Taken Comments Blood Pressure 109/66 04/13/2024 9:22 AM DRILL PRESS TENDER Pulse 64 04/13/2024 9:22 AM DRILL PRESS TENDER Temperature 36.4 ??C (97.5 ??F) 04/13/2024 9:22 AM CS T Respiratory Rate 16 04/13/2024 9:22 AM DRILL PRESS TENDER Oxygen Saturation 96% 04/13/2024 9:22 AM DRILL PRESS TENDER Inhaled Oxygen Concentration - - Weight 87.1 kg (192 lb) 04/13/2024 9:22 AM DRILL PRESS TENDER Height 182.9 cm (6') 06/21/2023 3:01 PM CDT Body Mass Index 26.04 06/21/2023 3:01 PM CDT Plan of Treatment Upcoming Encounters Date Type Department Care Team (Late st Contact Info) Description 05/04/2024 11:00 AM DRILL PRESS TENDER Office Visit [facility] Oncology and Hematology - [address] [facility] [address] [place] [address] Artur Booth MD [address] [facility] [address] [place] [address] Health Maintenance Due Date Last Done Comments Pre-Diabetes and Diabetes Screening 1978 DTAP/TDAP/TD VACCINES (1 - Tdap) 1997 HEPATITIS B VACCINES (1 of 3 - 19+ 3-dose series) 1997 COLORECTAL SCREENING 2023 Colorectal Cancer Screening 2023 FIT-DNA Q 3 years 2023 FIT/FOBT Q 1 year 2023 Flex Sig/CT Colonography Q 5 years 2023 INFLUENZA VACCINE (#1) 2023 HPV VACCINES Aged Out No longer eligi ble based on patient's age to complete this topic Procedures Procedure Name Priority Date/Time Associated Diagnosis Comments CBC WITH DIFFERENTIAL Routine 04/13/2024 2:58 PM DRILL PRESS TENDER CANCER ANTIGEN 15-3 Routine 04/13/2024 2:20 PM DRILL PRESS TENDER BASIC METABOLIC PANEL Routine 04/13/2024 2:11 PM DRILL PRESS TENDER PATHOLOGY Routine 03/07/2024 8:39 AM DRILL PRESS TENDER BASIC METABOLIC PANEL Routine 03/02/2024 3:29 PM DRILL PRESS TENDER CBC WITH DIFFERENTIAL Routine 03/02/2024 3:09 PM DRILL PRESS TENDER ECHO COMPLETE Routine 02/29/2024 10:16 AM DRILL PRESS TENDER BASIC METABOLIC PANEL Routine 02/13/2024 4:07 PM DRILL PRESS TENDER CBC WITH DIFFERENTIAL Routine 02/13/2024 1:11 PM DRILL PRESS TENDER CANCER ANTIGEN 15-3 Routine 02/13/2024 12:43 PM DRILL PRESS TENDER from Last 3 Months Results * CBC WITH DIFFERENTIAL (04/13/2024 2:58 PM DRILL PRESS TENDER) Only the most recent of3 resultswithin the time period is included. Blood us Artur Booth MD HEMATOLOGY ORDERABLES Final Res ult * CANCER ANTIGEN 15-3 (04/13/2024 2:20 PM DRILL PRESS TENDER) Only the most recent of2 resultswithin the time period is included. Blood us Artur Booth MD CHEMISTRY ORDERABLES Final Resu lt * BASIC METABOLIC PANEL (04/13/2024 2:11 PM DRILL PRESS TENDER) Only the most recent of3 resultswithin the time period is included. Blood us Artur Booth MD CHEMISTRY ORDERABLES Final Resu lt * PATHOLOGY (03/07/2024 8:39 AM DRILL PRESS TENDER) Tissue Artur Booth MD PATHOLOGY/CYTOLOGY ORDERABLES F inal Result * ECHO COMPLETE (02/29/2024 10:16 AM DRILL PRESS TENDER) Artur Booth MD ECHO ORDERABLES Final Result from Last 3 Months Insurance [employer] Care Teams Ammonium Nitrate Neutralizer Relationship Specialty Start Date End Date Omkar Díaz MD [address] [place] [phone] PCP - General Family Practice 06/14/23
--- OUTSIDE RECORDS SUMMARY | 2024-04-27 10:27 | XMS_ITS | Clinical Summary ---
Author Organization [employer] [facility] Address [address] [facility] [place] [address] Care Team Providers Care Gaming Commissioner Name Role Phone Omkar Díaz MD Primary Care Provider [phone] Source Comments [facility],non-owned Affiliates and Associated Physician Practices is amultiple site organization consisting of ambulatory clinics and hospital sitesin [place], [place], [place] and [place]. This disclosure is being madepursuant to the Care Everywhere program and may not contain all information available regarding this patient. Last updated 12/16/17.[facility] Allergies No known active allergies Medications Be aware that medications may not be up to date on this document. Always verify current medications with the patient. No known medications Active Problems Problem Noted Date Diagnosed Date Malignant neoplasm of centra l portion of right breast in female, estrogen receptor positive 06/21/2023 Cancer Staging:Clinical stage from 06/02/2023:Stage IB(cT2, cN0, cM0, G3, ER+, CA+, HER2+) - Signed by Elizabeth Iqbal MD on 06/21/2023 Family History Medical History Relation Name Comments Cancer-Breast Premenopausal Maternal Aunt Cancer-Breast Premenopausal Mother BRCA2 Positive Sister Relation Name Status Comments Maternal Aunt Mother Sister Social History Tobacco Use Types Packs/Day Years [...] 06/21/2023 9:21 AM CDT Plan of Treatment Health Maintenance Due Date Last Done Comments COLOGUARD (AGES 45-75) - COL ON CA SCREENING 1978 COLON MONITORING 1978 COLONOSCOPY - COLON CA SCREENING 1978 CT COLONOGRAPHY - COLON CA SCREENING 1978 Colorectal Cancer Screening 1978 FIT - COLON CA SCREENING 1978 FLEX SIG - COLON CA SCREENING 1978 LIPID TESTING 1978 HIV SCREENING 1993 HEPATITIS C SCREENING 05/17/1996 DTAP/TDAP/TD VACCINES (1 - Tdap) 1997 HEPATITIS B VACCINE (1 of 3 - 19+ 3-dose series) 1997 PNEUMOCOCCAL VACCINE (1 of 2 - PCV) 1997 SCREENING FOR DIABETES 06/21/2023 COVID-19 VACCINE (1 - 2023-2 5 season) 2023 INFLUENZA VACCINE (#1) 2023 DEPRESSION SCREENING 03/28/2024 ZOSTER VACCINE (1 of 2) 2028 HIB VACCINE Aged Out No longer eligi ble based on patient's age to complete this topic HPV VACCINE Aged Out No longer eligi ble based on patient's age to complete this topic MENINGOCOCCAL (Group B) VACCINE Aged Out No longer eligible based on patient's age to complete this topic MENINGOCOCCAL VACCINE Aged Out No cy mare eligible based on patient's age to complete this topic Care Teams Gaming Commissioner Relationship Specialty Start Date End Date Omkar Díaz MD [address] [place] [address] [address] [place] [address] PCP - General Family Medicine 06/21/23
--- OUTSIDE RECORDS SUMMARY | 2024-04-27 10:27 | XMS_ITS | Encounter Summary ---
Author Organization [facility] Address [address] [place] [address]. [place] [id number] [place] [address] Care Team Providers Care Trapeze Artist Name Role Phone Unavailable Primary Care Provider Unavailabl e Encounter Details Date Type Department Care Team (Late st Contact Info) Description 12/30/2015 Abstract [facility] CONVERSION [address] [place] [address] , Generic ConversionMD Social History Tobacco Use Types Packs/Day Years Used Date Smoking Tobacco: Never Assessed Sex and Gender Information Value Date Recorded Sex Assigned at Not on file Legal Sex Male 8:03 PM CDT Gender Identity Not on file Sexual Orientation Not on file documented as of this encounter Plan of Treatment Not on file documented as of this encounter Visit Diagnoses Not on filedocumented in this encounter
--- OUTSIDE RECORDS SUMMARY | 2024-04-27 10:27 | XMS_ITS | Clinical Summary ---
Author Organization [facility] Address [address] [place] [address]. [place] [address] [place] [address] Care Team Providers Care Interrelated Special Education Teacher Name Role Phone Unavailable Primary Care Provider Unavailabl e Social History Tobacco Use Types Packs/Day Years Used Date Smoking Tobacco: Never Assessed Sex and Gender Information Value Date Recorded Sex Assigned at Not on file Legal Sex Male 8:03 PM CDT Gender Identity Not on file Sexual Orientation Not on file Last Filed Vital Signs Vital Sign Reading Time Taken Comments Blood Pressure 106/74 12/30/2015 3:55 PM CDT Pulse 88 12/30/2015 3:55 PM CDT Temperature - - Respiratory Rate - - Oxygen Saturation - - Inhaled Oxygen Concentration - - Weight 89.8 kg (198 lb) 12/30/2015 3:55 PM CDT Height 186.7 cm (6' 1.5 ) 12/30/2015 3:55 PM CDT Body Mass Index 25.77 12/30/2015 3:55 PM CDT Plan of Treatment Health Maintenance Due Date Last Done Comments Colorectal Cancer Screening Colonoscopy (10 Years) 1978 Annual Physical 1981 Hepatitis C 1996 DTaP, Tdap and Td Vaccines ( 1 - Tdap) 1997 Hepatitis B Vaccines (1 of 3 - 19+ 3-dose series) 1997 COVID-19 Vaccine (2023-2 5 season) 2023 Influenza Adult (#1) 2023 HPV Vaccines Aged Out No longer eligi ble based on patient's age to complete this topic Meningococcal B Vaccine Aged Out No l onger eligible based on patient's age to complete this topic Meningococcal Vaccine Aged Out No cy mare eligible based on patient's age to complete this topic Pneumococcal Vaccine: Pediat rics (0 to 5 Years) and At-Risk Patients (6 to 64 Years) Aged Out No longer eligible b ased on patient's age to complete this topic RSV Immunizations Under 20 Months Aged Out No longer eligible based on patient's age to complete this topic
== END 2024-04-27 10:11 | disposition home or self-care (01) ==
PROVIDERS: PCP Nurse Practitioner Family; Visit Provider Internal Medicine Gastroenterology
DX: R10.11 Right upper quadrant pain (principal); N20.0 Calculus of kidney; K40.90 Unilateral inguinal hernia, without obstruction or gangrene, not specified as recurrent
CPT/HCPCS: 74177; Q9967

== ENCOUNTER 2024-05-02 02:01 | Day surgery (SDC) | payer OTHER, SELFPAY ==
[2024-04-26 13:03] VITALS: BMI 26.6
--- OUTSIDE RECORDS SUMMARY | 2024-05-02 02:04 | XMS_ITS | Encounter Summary ---
Author Organization [facility] Address [address] [place] [address] Care Team Providers Care Insurance Coder Name Role Phone Unavailable Primary Care Provider Unavailabl e Encounter Details Date Type Department Care Team (Late st Contact Info) Description 12/30/2015 Abstract [facility] CONVERSION [address] [place] [address] , Generic Conversion, Social History Tobacco Use Types Packs/Day Years [...]
--- OUTSIDE RECORDS SUMMARY | 2024-05-02 02:04 | XMS_ITS | Clinical Summary ---
Author Organization [facility] Address [address] [place] [address] Care Team Providers Care Geographical Historian Name Role Phone Unavailable Primary Care Provider [...]
--- OUTSIDE RECORDS SUMMARY | 2024-05-02 02:04 | XMS_ITS | Continuity of Care Document ---
Author Organization [facility] Address [address] [place] [address] Phone Care Team Providers Care Etcher Electrolytic Name Role Phone Raudel, Edward Unavailable Unavailable Advance Directives Directive Yes / No Effective Date File Name No Information Encounters Encounter Description Practice Location Reason(s) For Visit Diagnoses Date Provider Providers Copied on Encounter [facility], [address], [place], [place], [id number], [place] tel:[phone] [facility] No Information May- 9-200 [address] Edward. [address] , [address], [place], [address], [place]. tel:[phone] Family History Family Member Type Diagnosis Age At Onset No Information Payers Payer name Insurance type Covered libertarian ID Authorjasona neeraj(s) [employer] [id number] Social History Type Description Quantity Date Captured [...]
--- OUTSIDE RECORDS SUMMARY | 2024-05-02 02:04 | XMS_ITS | Clinical Summary ---
Author Organization [facility] Kadi figueroa [facility] Address [address] [facility] [place] [address] Care Team Providers Care Hand Silvering Supervisor Name Role Phone Omkar Díaz MD Primary Care Provider [phone] Allergies No known active allergies Medications filgrastim [...] 04/13/19 25 Active naloxone (NARCAN) 4 mg/spray Blair, Non-Aerosol EMERGENCY USE ONLY: Administer 1 spray [...] Encounters Date Type Department Care Team Description 04/30/2024 Orders Only [facility] Oncology and Hematology - [place] [address] [place] [phone] Artur Booth MD Malignant neoplasm of central portion of right breast in male, estrogen receptor positive (CMS/HCC) 04/27/2024 Abstract [facility] Oncology and Hematology - [place] [address] [place] [phone] Artur Booth MD 04/19/2024 External Device Data STL ABSTRACTION Provider, Abstract 04/17/2024 Abstract [facility] Oncology and Hematology - [place] [address] [place] [phone] Artur Booth MD 04/16/2024 Orders Only [facility] Oncology and Hematology - [place] [address] [place] [phone] Artur Booth MD Malignant neoplasm of central portion of right breast in male, estrogen receptor positive (CMS/HCC) 04/13/2024 9:15 AM TIME RECORDER Office Visit [facility] Oncology and Hematology - [place] [address] [place] [phone] Artur Booth MD Right upper quadrant abdominal pain (Primary Dx); Malignant neoplasm of central portion of right breast in male, estrogen receptor positive (CMS/HCC) 04/13/2024 Orders Only [facility] Oncology and Hematology - [place] [address] [place] [phone] Artur Booth MD 04/11/2024 Refill [facility] Oncology and Hematology - [place] [address] [place] [phone] Jose Cox MD Malignant neoplasm of central portion of right breast in male, estrogen receptor positive (CMS/HCC) 04/10/2024 External Device Data STL ABSTRACTION Provider, Abstract 04/02/2024 Orders Only [facility] Oncology and Hematology - [place] [address] [place] [phone] Artur Booth MD Malignant neoplasm of central portion of right breast in male, estrogen receptor positive (CMS/HCC) 03/23/2024 8:30 AM TIME RECORDER Office Visit [facility] Oncology and Hematology - [place] [address] [place] [phone] Jose Cxo MD Malignant neoplasm of central portion of right breast in male, estrogen receptor positive (CMS/HCC) (Primary Dx) 03/19/2024 Telephone [facility] Oncology and Hematology - [place] [address] [place] [phone] Jose Cox MD Medication Problem 03/19/2024 Orders Only [facility] Oncology and Hematology - [place] [address] [place] [address] Artur Booth MD Malignant neoplasm of central portion of right breast in male, estrogen receptor positive (CMS/HCC) 03/18/2024 Refill [facility] Oncology and Hematology - [place] [address] [place] [phone] Artur Booth MD Malignant neoplasm of central portion of right breast in male, estrogen receptor positive (CMS/HCC) 03/13/2024 4:30 PM TIME RECORDER Telephone Check Up [facility] Oncology and Hematology - [place] [address] [place] [address] Artur Booth MD 03/09/2024 Telephone [facility] Cardiovas and Thor Surg at [facility] Heart [address] [place] [address] Ishmael Camara MD Information 03/09/2024 Orders Only [facility] Oncology and Hematology - [place] [address] [place] [phone] Artur Booth MD 03/06/2024 Refill [facility] Oncology and Hematology - [place] [address] [place] [address] Artur Booth MD 03/05/2024 Orders Only [facility] Oncology and Hematology - [place] [address] [place] [phone] Artur Booth MD Malignant neoplasm of central portion of right breast in male, estrogen receptor positive (CMS/HCC) 03/01/2024 Orders Only [facility] Oncology and Hematology - [place] [address] [place] [phone] Artur Booth MD 02/29/2024 Refill [facility] Oncology and Hematology - [place] [address] [place] [address] Artur Booth MD Malignant neoplasm of central portion of right breast in male, estrogen receptor positive (CMS/HCC) 02/28/2024 Orders Only [facility] Oncology and Hematology - [place] [address] [place] [phone] Artur Booth MD Encounter for chemotherapy management (Primary Dx); Malignant neoplasm of central portion of right breast in male, estrogen receptor positive (CMS/HCC) 02/22/2024 2:45 PM TIME RECORDER Office Visit [facility] Cardiovas and Thor Surg at [address] [place] [phone] Ishmael Camara MD Mediastinal mass (Primary Dx) 02/20/2024 Orders Only [facility] Oncology and Hematology - [place] [address] [place] [phone] Artur Booth MD Malignant neoplasm of central portion of right breast in male, estrogen receptor positive (CMS/HCC) 02/15/2024 Orders Only [facility] Oncology and Hematology - [place] [address] [place] [address] Artur Booth MD 02/14/2024 Orders Only [facility] Oncology and Hematology - [place] [address] [place] [address] Artur Booth MD 02/13/2024 8:45 AM TIME RECORDER Office Visit [facility] Oncology and Hematology - [place] [address] [place] [phone] Artur Booth MD Liver mass (Primary Dx); Malignant neoplasm of central portion of right breast in male, estrogen receptor positive (CMS/HCC) 02/12/2024 Refill [facility] Oncology and Hematology [facility] [address] [place] [address] Artur Booth MD 02/06/2024 Orders Only [facility] Oncology and Hematology [facility] [address] [place] [address] Artur Booth MD Malignant neoplasm of central portion of right breast in male, estrogen receptor positive (CMS/HCC) from Last 3 Months Family History Medical [...] Comments Blood Pressure 109/66 04/13/2024 9:22 AM TIME RECORDER Pulse 64 04/13/2024 9:22 AM TIME RECORDER Temperature 36.4 ??C (97.5 ??F) 04/13/2024 9:22 AM CS T Respiratory Rate 16 04/13/2024 9:22 AM TIME RECORDER Oxygen Saturation 96% 04/13/2024 9:22 AM TIME RECORDER Inhaled Oxygen Concentration - - Weight 87.1 kg (192 lb) 04/13/2024 9:22 AM TIME RECORDER Height 182.9 cm (6') 06/21/2023 3:01 PM CDT Body Mass Index 26.04 06/21/2023 3:01 PM CDT Plan of Treatment Upcoming Encounters Date Type Department Care Team (Late st Contact Info) Description 05/04/2024 11:00 AM TIME RECORDER Office Visit [facility] Oncology and Hematology [facility] [address] [place] [address] Artur Booth MD [address] [facility] [address] [place] [address] Health Maintenance Due Date Last [...] CBC WITH DIFFERENTIAL Routine 04/13/2024 2:58 PM TIME RECORDER CANCER ANTIGEN 15-3 Routine 04/13/2024 2:20 PM TIME RECORDER BASIC METABOLIC PANEL Routine 04/13/2024 2:11 PM TIME RECORDER PATHOLOGY Routine 03/07/2024 8:39 AM TIME RECORDER BASIC METABOLIC PANEL Routine 03/02/2024 3:29 PM TIME RECORDER CBC WITH DIFFERENTIAL Routine 03/02/2024 3:09 PM TIME RECORDER ECHO COMPLETE Routine 02/29/2024 10:16 AM TIME RECORDER BASIC METABOLIC PANEL Routine 02/13/2024 4:07 PM TIME RECORDER CBC WITH DIFFERENTIAL Routine 02/13/2024 1:11 PM TIME RECORDER CANCER ANTIGEN 15-3 Routine 02/13/2024 12:43 PM TIME RECORDER from Last 3 Months Results * CBC WITH DIFFERENTIAL (04/13/2024 2:58 PM TIME RECORDER) Only the most recent of3 resultswithin the time period is included. Blood us Artur Booth MD HEMATOLOGY ORDERABLES Final Res ult * CANCER ANTIGEN 15-3 (04/13/2024 2:20 PM TIME RECORDER) Only the most recent of2 resultswithin the time period is included. Blood us Artur Booth MD CHEMISTRY ORDERABLES Final Resu lt * BASIC METABOLIC PANEL (04/13/2024 2:11 PM TIME RECORDER) Only the most recent of3 resultswithin the time period is included. Blood us Artur Booth MD CHEMISTRY ORDERABLES Final Resu lt * PATHOLOGY (03/07/2024 8:39 AM TIME RECORDER) Tissue Result Elias Booth MD PATHOLOGY/CYTOLOGY ORDERABLES F inal Result * ECHO COMPLETE (02/29/2024 10:16 AM TIME RECORDER) us Artur Booth MD ECHO ORDERABLES Final Result from Last 3 Months Insurance [employer] Care Teams Hand Silvering Supervisor Relationship Specialty Start Date End Date Omkra Díaz MD [address] [place] [phone] PCP - General Family Practice 06/14/23
--- OUTSIDE RECORDS SUMMARY | 2024-05-02 02:04 | XMS_ITS | Encounter Summary ---
Author Organization [facility] [employer] [facility] Address [address] [place] [address] Care Team Providers Care Monotypist Name Role Phone Omkar Díaz MD Primary Care Provider [phone] Encounter Details Date Type Department Care Team (Late Contact Info) Description 04/30/2024 Orders Only [facility] Oncology [facility] [address] [place] [address] Artur Booth MD [facility] [address] [place] [phone] Malignant neoplasm of central portion of right breast in male, estrogen receptor positive (CMS/HCC) Social History Tobacco Use Types Packs/Day Years Used Date Smoking Tobacco: Every Day Cigarettes 0.5 28.1 Started: 1996 Smokeless Tobacco: Never Alcohol Use Standard Drinks/Week Comments Yes 0 (1 standard drink = 0.6 oz pur e alcohol) rarely Sex and Gender Information Value Date Recorded Sex Assigned at Not on file Legal Sex Male 9:03 AM CDT Gender Identity Not on file Sexual Orientation Not on file documented as of this encounter Plan of Treatment Upcoming Encounters Date Type Department Care Team (Late st Contact Info) Description 05/04/2024 11:00 AM PEDIATRICIAN ACTIVE PRACTICE Office Visit [facility] Oncology [facility] [address] [place] [address] Artur Booth MD [address] [place] [address] documented as of this encounter Visit Diagnoses Diagnosis Malignant neoplasm of central portion of right breast in male, estrogen receptor positive (CMS/HCC) documented in this encounter Care Teams Monotypist Relationship Specialty Start Date End Date Omkar Díaz MD [address] [place] [phone] PCP - General Family Practice 06/14/23 documented as of this encounter
[2024-05-02 12:48] VITALS: BP 137/83; PULSE 77; RESP 20; TEMP 36.1; O2SAT 97
--- NOTE | 2024-05-02 12:56 | P.PNAN_ITS ---
Anes - Initial Pre Proc Eval Procedure: Operation Date: 05/02/24 13:30 Proposed Procedures p Esophagogastroduodenoscopy & Colonoscopy - Taoy Diaz MD Date/Time: 05/02/24 12:56 Surgeon: Tayo Diaz MD Pre Op Diagnosis: Vomting,dysphagia,right upper quad pain Patient Data Age: 43 Gender: M Height: 1.83 m Weight: 85.9 kg Last Vital Signs Temp 36.1 C L 05/02/24 12:48 Pulse 77 05/02/24 12:48 Resp 20 05/02/24 12:48 BP 137/83 05/02/24 12:48 Pulse Ox 97 05/02/24 12:48 O2 Del Method Room Air 05/02/24 12:48 Allergies Allergy/AdvReac Type Severity Reaction Status Date / Time exofin skin glue AdvReac Unknown Other Uncoded 05/02/24 12:43 Home Medications ?Medication ?Instructions ?Recorded ?Confirmed ?Type sertraline 100 mg tablet 100 mg PO DAILY 12/13/23 05/02/24 History hydrocodone 5 mg-acetaminophen 325 1 tablet PO Q8H PRN pain #14 tabs 02/09/24 05/02/24 Rx mg tablet prochlorperazine maleate 10 mg 10 mg PO DAILY 03/01/24 05/02/24 History tablet omeprazole 40 mg capsule,delayed 40 mg PO DAILY 1 month #30 caps 04/25/24 05/02/24 Rx release Patient hx anesthesia problems: none Family hx anesthesia problems: none Results Review: All pre-operative results and documents have been reviewed as part of the pre- operative evaluation. [facility] Past Medical History Medical History Change in bowel habits Nausea RUQ pain Hx of renal calculi Depression with anxiety Anxiety Chronic low back pain Attention Deficit Hyperactivity Disorder (ADHD) Surgical History Surgical History S/P bilateral mastectomy H/O ureteroscopy Family History Family History Mother Family history of malignant neoplasm of breast in first degree relative, Onset Age: 37 Other Carcinoma of colon Family history of arthritis Malignant neoplasm of prostate Social History Social History Smoking packs per day: 1 Smoking cigarettes per day: 20.0 Years smoked: 25 Smoking pack-years: 25.00 Smoking status: Current every day smoker Tobacco type: cigarettes Second hand tobacco smoke exposure: No Alcohol intake: former Alcohol use details: occasional Substance use: current Substance use type: marijuana Other substance usage details: DAILY Last use: 12/20/23 Do You Feel Safe in your Home?: Yes Lack of Transportation: No Lack of Food: Never True Current Housing: I Have Housing Concerned About Future Housing: No Difficulty Paying Gas/Electric Bills: No Difficulty Paying for Meds: No Currently Unemployed: No Education: High School Diploma/GED Difficulty w/ Childcare or Family Care: No Living arrangements: with family Occupation/Education: occupation Additional occupation/education comments: [employer] Gender identity (if verbalized by the patient): Male Spiritual care concerns: No Anes - Eval Final PreProcedure Day of Procedure 05/02/24 12:56 Patient weight: normal Heart: regular rate and rhythm Lungs: clear to auscultation Airway: Mallampati scale class II Neurological: alert and oriented Last oral intake: >/= 8 hours ASA classification: III Emergent: no Anesthetic plan: proceed Anesthesia type and monitoring: general GIVS and standard monitoring Results Review: All pre-operative results and documents have been reviewed as part of the pre- operative evaluation. Informed Consent: The patient's anesthetic plan and its attendant risks and benefits were discussed with the patient/family/POA. Questions were solicited and answers provided to the satisfaction of the patient/family/POA.
[2024-05-02] MEDS: LACTATED RINGERS 1,000 ML 150 ML IV CONT (12:59)
--- NOTE | 2024-05-02 13:35 | PM.IMHP ---
H&P: HPI History of Present Illness Date/Time: 05/02/24 13:35 Chief Complaint: Abdominal pain- vomiting. Screening colonoscopy Narrative: the patient has a history significant for advanced breast cancer, BRCA2 positive, with lymph node metastases, status post radiation and chemotherapy last year. He has been experiencing severe, Daily, stabbing epigastric pain episodes associated with morning retching. There is no heartburn or dysphagia. He has never had a a colonoscopy and is referred for EGD and colonoscopy. Review of Systems Review of Systems: All systems reviewed & are unremarkable except as noted in HPI and below PMFSH Past Medical History Medical History Change in bowel habits Nausea RUQ pain Hx of renal calculi Depression with anxiety Anxiety Chronic low back pain Attention Deficit Hyperactivity Disorder (ADHD) Surgical History Surgical History S/P bilateral mastectomy H/O ureteroscopy Family History Family History Mother Family history of malignant neoplasm of breast in first degree relative, Onset Age: 37 Other Carcinoma of colon Family history of arthritis Malignant neoplasm of prostate Social History Social History Smoking packs per day: 1 Smoking cigarettes per day: 20.0 Years smoked: 25 Smoking pack-years: 25.00 Smoking status: Current every day smoker Tobacco type: cigarettes Second hand tobacco smoke exposure: No Alcohol intake: former Alcohol use details: occasional Substance use: current Substance use type: marijuana Other substance usage details: DAILY Last use: 12/20/23 Do You Feel Safe in your Home?: Yes Lack of Transportation: No Lack of Food: Never True Current Housing: I Have Housing Concerned About Future Housing: No Difficulty Paying Gas/Electric Bills: No Difficulty Paying for Meds: No Currently Unemployed: No Education: High School Diploma/GED Difficulty w/ Childcare or Family Care: No Living arrangements: with family Occupation/Education: occupation Additional occupation/education comments: [employer] Gender identity (if verbalized by the patient): Male Spiritual care concerns: No Meds Home Medications and Allergies Home Medications ?Medication ?Instructions ?Recorded ?Confirmed ?Type sertraline 100 mg tablet 100 mg PO DAILY 12/13/23 05/02/24 History hydrocodone 5 mg-acetaminophen 325 1 tablet PO Q8H PRN pain #14 tabs 02/09/24 05/02/24 Rx mg tablet prochlorperazine maleate 10 mg 10 mg PO DAILY 03/01/24 05/02/24 History tablet omeprazole 40 mg capsule,delayed 40 mg PO DAILY 1 month #30 caps 04/25/24 05/02/24 Rx release Allergies Allergy/AdvReac Type Severity Reaction Status Date / Time exofin skin glue AdvReac Unknown Other Uncoded 05/02/24 12:43 Vital Signs Vital Signs - 24 hr 05/02/24 12:48 Temperature 97 F L Pulse Rate 77 Respiratory Rate 20 Blood Pressure 137/83 Pulse Oximetry 97 Oxygen Delivery Room Air Exam Const: General: cooperative and healthy appearing Resp: Effort & Inspection: normal respiratory effort and able to speak in complete sentences Auscultation: clear to auscultation bilaterally Cardio: Rate: regular rate Rhythm: regular rhythm GI: Inspection: normal to inspection GI Palp: No No hepatosplenomegaly present Auscultation: normal bowel sounds Rectal Exam: deferred Skin: General skin exam: normal color Psych: Appearance: grossly normal Mental Status: mental status grossly normal Assessment and Plan Assessment and plan (1) Nausea: Code(s): R11.0 - Nausea Status: Acute Assessment and Plan: The patient is deemed a good candidate for the procedures. Consent signed. Will proceed. (2) Abdominal pain: Qualifiers: Abdominal location: epigastric Qualified Code(s): R10.13 - Epigastric pain Code(s): R10.9 - Unspecified abdominal pain Status: Acute
--- NOTE | 2024-05-02 14:00 | SUR.OPER ---
EGD end 1356 COLONOSCOPY START 1401
[2024-05-02 14:23] VITALS: BP 133/87; PULSE 87; RESP 23; O2SAT 100
[2024-05-02 14:33] VITALS: BP 130/89; PULSE 66; RESP 19; O2SAT 100
[2024-05-02 14:43] VITALS: BP 124/87; PULSE 68; RESP 19; O2SAT 100
== END 2024-05-02 14:54 | disposition home or self-care (01) ==
PROVIDERS: PCP Nurse Practitioner Family; Referring Provider Nurse Practitioner Family; Visit Provider Internal Medicine Gastroenterology
PROC: 0DJ08ZZ Inspection of Upper Intestinal Tract, Via Natural or Artificial Opening Endoscopic (ICD-10-PCS; CPT 45378; principal; 2024-05-02 13:30)
DX: Z12.11 Encounter for screening for malignant neoplasm of colon (principal); K29.30 Chronic superficial gastritis without bleeding; K29.80 Duodenitis without bleeding; Z85.3 Personal history of malignant neoplasm of breast; Z15.01 Genetic susceptibility to malignant neoplasm of breast; F17.210 Nicotine dependence, cigarettes, uncomplicated; F12.90 Cannabis use, unspecified, uncomplicated
CPT/HCPCS: 45378; 43239; 88305; J2003; J2704; J7120

== ENCOUNTER 2024-05-11 07:59 | Outpatient (CLI) | payer OTHER, SELFPAY ==
--- NOTE | ~2024-05-11 | NM_ITS ---
EXAMINATION: NM hepatobiliary wo pharm DATE: 05/11/2024 10:29 INDICATION: Right upper quadrant abdominal pain. COMPARISON: CT abdomen pelvis 04/27/2024 TECHNIQUE: 4.9 mCi Tc-99m mebrofenin (Choletec) was administered intravenously. Scintigraphic images of the abdomen were obtained for one hour. Then, the patient drank 8 oz Ensure, and imaging was cont inued for 60 minutes. FINDINGS: There is normal clearance of radiotracer from the blood pool. There is homogeneous tracer u ptake by the liver. Activity progresses to the bowel and gallbladder. Gallbladder ejection fraction (GBEF) was 73%. Note that with this technique, normal GBEF >= 33%. IMPRESSION: 1. Normal hepatobiliary scintigraphy. Reviewed, dictated and finalized at location A. REMODELER
--- OUTSIDE RECORDS SUMMARY | 2024-05-11 08:02 | XMS_ITS | Encounter Summary ---
Author Organization [facility] Address [address] [place] [address] Care Team Providers Care Clamshell Operator Name Role Phone Unavailable Primary Care Provider Unavailabl e Encounter Details Date Type Department Care Team (Late st Contact Info) Description 12/30/2015 Abstract [facility] CONVERSION [address] [place] [address] , Generic Conversion, Social History Tobacco Use [...]
--- OUTSIDE RECORDS SUMMARY | 2024-05-11 08:02 | XMS_ITS | Clinical Summary ---
Author Organization [employer] Address [address] [facility] [place] [address] Care Team Providers Care Straightening Roll Operator Name Role Phone Omkar Díaz MD Primary Care Provider [phone] Source Comments [facility],non-owned Affiliates and Associated Physician Practices is amultiple site organization consisting of ambulatory clinics and hospital sitesin [place], [place], [place] and [place]. This disclosure is being madepursuant to the Care Everywhere program and may not contain all information available regarding this patient. Last updated 17.[facility] Allergies No known active allergies Medications Be aware that medications may not be up to date on this document. Always verify current medications with the patient. No known medications Active Problems Problem Noted Date Diagnosed Date Malignant neoplasm of centra l portion of right breast in female, estrogen receptor positive 06/21/2023 Cancer Staging:Clinical stage from 06/02/2023:Stage IB(cT2, cN0, cM0, G3, ER+, [place]+, HER2+) - Signed by Elizabeth Iqbal MD [...] 87 06/21/2023 9:21 AM CDT Temperature 36.8 C (98.3 F) 06/21/2023 9:21 AM CDT Respiratory Rate - - Oxygen Saturation 99% [...] age to complete this topic Care Teams Straightening Roll Operator Relationship Specialty Start Date End Date Omkar Díaz MD [address] [place] [address] [address] [place] [address] PCP - General Family Medicine 06/21/23
--- OUTSIDE RECORDS SUMMARY | 2024-05-11 08:02 | XMS_ITS | Continuity of Care Document ---
Author Organization [facility] Address [address] [place] [address] Phone Care Team Providers Care Cement Railroad Car Loader Name Role Phone Moralessy, Edward Unavailable Unavailable Advance Directives Directive Yes / No Effective Date File Name No Information Encounters Encounter Description Practice Location Reason(s) For Visit Diagnoses Date Provider Providers Copied on Encounter Formerly [facility], [address], [place], [place], [id number], [place] tel:[phone] [facility] No Information May- 9-[address] Edward. [address], [place], [address], [place]. tel:[phone] Family History Family Member Type Diagnosis Age At Onset No Information Payers Payer name Insurance type Covered green party ID Authorjasona neeraj(s) [employer] [id number] Social History Type Description Quantity Date Captured [...]
--- OUTSIDE RECORDS SUMMARY | 2024-05-11 08:02 | XMS_ITS | Referral Summary ---
Author Organization [employer] Address [address] [facility] [place] [address] Care Team Providers Care Wellness Instructor Name Role Phone Omkar Díaz MD Primary Care Provider [phone] Source Comments [facility],non-owned Affiliates and Associated Physician Practices is amultiple site organization consisting of ambulatory clinics and hospital sitesin [place], [place], [place] and [place]. This disclosure is being madepursuant to the Care Everywhere program and may not contain all information available regarding this patient. Last updated 17.[facility] Allergies No known active allergies Medications Be aware that medications may not be up to date on this document. Always verify current medications with the patient. No known medications Active Problems Problem Noted Date Diagnosed Date Malignant neoplasm of centra l portion of right breast in female, estrogen receptor positive 06/21/2023 Cancer Staging:Clinical stage from 06/02/2023:Stage IB(cT2, cN0, cM0, G3, ER+, [place]+, HER2+) - Signed by Elizabeth Iqbal MD [...] of Treatment Not on file Care Teams Wellness Instructor Relationship Specialty Start Date End Date Omkar Díaz MD [facility] [address] [facility] [address] [place] [address] PCP - General Family Medicine 06/21/23
--- OUTSIDE RECORDS SUMMARY | 2024-05-11 08:02 | XMS_ITS | Patient Health Summary ---
Author Organization [facility] Address [address] [place] [address] Care Team Providers Care Transformer Molder Name Role Phone Omkar Díaz MD Primary Care Provider [phone] Note from [facility],non-owned Affiliates and Associated Physician Practices is amultiple site organization consisting of ambulatory clinics and hospital sitesin [place], [place], [place] and [place]. This disclosure is being madepursuant to the Care Everywhere program and may not contain all information available regarding this patient. Last updated 17.[facility] Allergies No known active allergies Medications Be aware that medications may not be up to date on this document. Always verify current medications with the patient. No known medications Active Problems Problem Noted Date Diagnosed Date Malignant neoplasm of centra l portion of right breast in female, estrogen receptor positive 06/21/2023 Cancer Staging:Clinical stage from 06/02/2023:Stage IB(cT2, cN0, cM0, G3, ER+, VT+, HER2+) - Signed by Elizabeth Iqbal MD [...] 27.64 06/21/2023 9:21 AM CDT Care Teams Transformer Molder Relationship Specialty Start Date End Date Omkar Díaz MD [address] [place] [id number] PCP - General Family Medicine 06/21/23
--- OUTSIDE RECORDS SUMMARY | 2024-05-11 08:02 | XMS_ITS | Clinical Summary ---
Author Organization [facility] Address [address] [place] [address] Care Team Providers Care Proof Reader Name Role Phone Unavailable Primary Care Provider [...]
== END 2024-05-11 08:00 | disposition home or self-care (01) ==
PROVIDERS: PCP Nurse Practitioner Family; Visit Provider Nurse Practitioner Family
DX: R10.11 Right upper quadrant pain (principal); R11.2 Nausea with vomiting, unspecified
CPT/HCPCS: 78226; A9537

== ENCOUNTER 2024-07-09 07:58 | Outpatient (CLI) | payer OTHER, SELFPAY ==
--- NOTE | 2024-07-09 | ECHO_ITS ---
Patient Info Name: Matty Mello Age: 44 years : 1980 Gender: Male Ht: 72 in Wt: 191 lbs BSA: 2.11 m2 HR: 62 bpm BP: 132 / 76 mmHg Technical Quality: Good Exam Date: 07/09/2024 8:21 AM Exam Location: Echo Lab Patient Status: Outpatient Admit Date: 07/09/2024 Staff Ordering Physician: Artur Booth MD Court Abstractor: Anjelica Yan RDCS Attending Provider: Artur Booth MD Referring Physician: Emmy MEZA; Exam Type: CA echo doppler color flow Study Info Indications - Z51.11 - Malignant neoplasm Complete two-dimensional, color flow and Doppler transthoracic echocardiogram is performed. Strain analysis performed. Summary 1. Complete two-dimensional, color flow and Doppler transthoracic echocardiogram is performed. 2. There is normal biventricular size and systolic function. 3. There are no significant valvular abnormalities. Left Ventricle The left ventricle is normal in size and systolic function. The left ventricular ejection fraction is visually estimated to be 60-65%. Right Ventricle The right ventricle is normal in size and systolic function. Left Atria The left atrial size is normal. Right Atria The right atrial size is normal. Atrial Septum Lipomatous hypertrophy of the atrial septum. Aortic Valve The aortic valve is probably trileaflet and opens well. There is no aortic regurgitation. Pulmonic Valve The pulmonic valve is not well visualized. There is no color Doppler evidence of pulmonic valve regurgitation. Mitral Valve The mitral valve is normal. There is no mitral regurgitation. Tricuspid Valve The tricuspid valve is normal. There is no tricuspid regurgitation. Pericardium/Pleural Pericardium is normal in appearance with no evidence for significant pericardial effusion. Inferior Vena Cava Normal inferior vena cava with >50% collapse upon inspiration consistent with normal right atrial pressure, 3 mmHg. Aorta The aortic root at the level of the sinus of Valsalva measures 3.1 cm in diameter. Left Ventricular Outflow Tract Name Value Normal LVOT 2D LVOT Diameter 2.2 cm LVOT Doppler LVOT Peak Gradient 6 mmHg LVOT Mean Gradient 3 mmHg LVOT VTI 23 cm LVOT VTI/AV VTI Ratio 1.0 LVOT Stroke Volume 87 ml LVOT CO 19.0 l/min LVOT CI 9.0 l/min/m2 Pulmonic Valve Name Value Normal PV Doppler PV Peak Gradient 2 mmHg Mitral Valve Name Value Normal MV Doppler MV Decel Blair 287 cm/s2 MV PHT 71 ms MV Area (PHT) 3.1 cm2 4.0-5.0 MV Diastolic Function MV E Peak Velocity 71 cm/s MV A Peak Velocity 56 cm/s MV E/A 1.3 MV Decel Time 246 ms MV Annular TDI MV E/e' (Septal) 5.9 <=8.0 MV E/e' (Lateral) 4.7 <=8.0 MV E/e' (Average) 5.3 Tricuspid Valve Name Value Normal TV Regurgitation Doppler TR Peak Velocity 192 cm/s TR Peak Gradient 15 mmHg Estimated PAP/RSVP RA Pressure 3 mmHg <=5 PA Systolic Pressure 18 mmHg <36 RV Systolic Pressure 18 mmHg <36 Aorta Name Value Normal Ascending Aorta Ao Root Diameter (MM) 3.6 cm Ao Root Diam Index (MM) 1.7 cm/m2 Aortic Valve Name Value Normal AV Doppler AV Peak Velocity 117 cm/s AV Peak Gradient 5 mmHg AV Mean Gradient 4 mmHg AV VTI 24 cm AV Area (Cont Eq VTI) 3.6 cm2 >=3.0 AV Area (Cont Eq Jesse) 3.8 cm2 AV Regurgitation 2D LVOT Area 3.7 cm2 Ventricles Name Value Normal LV Dimensions 2D/MM IVS Diastolic Thickness (2D) 0.9 cm 0.6-1.0 LVID Diastole (2D) 4.2 cm 4.2-5.8 LVIW Diastolic Thickness (2D) 1.0 cm 0.6-1.0 LVID Systole (2D) 3.1 cm 2.5-4.0 LVOT Diameter 2.2 cm LV Mass (2D Cubed) 133.25 g 88.00-224.00 LV Mass Index (2D Cubed) 63 g/m2 49-115 Relative Wall Thickness (2D) 0.49 LV Fractional Shortening/Ejection Fraction 2D/MM LV Fractional Shortening (2D) 27 % 25-43 LV EF (2D Teicholz) 53 % 52-72 RV Dimensions 2D/MM RVID Diastole (2D) 3.9 cm 2.5-3.5 Atria Name Value Normal LA Dimensions LA Dimension (MM) 2.8 cm 3.0-4.1 LA Volume (4C A-L) 49 ml LA Volume (BP A-L) 46 ml RA Dimensions RA Area (4C) 15.5 cm2 <=18.0 EchoPAC Name Value Normal AutoEF LVCO_BiP_Q (Glkk8SNO) 3.4 l/min LVEF_BiP_Q (Efet2MAY) 59 % LVSV_BiP_Q (Zfyg7AXV) 61 ml LVVED_BiP_Q (Pacu6FFL) 103 ml LVVES_BiP_Q (Gvgu9VIS) 42 ml HR_4Ch_Q (Bohg4HRY) 57 bpm LVCO_4Ch_Q (Ztdi6YKB) 2.7 l/min LVEF_4Ch_Q (Hbfr8PXD) 51 % LVLd_4Ch_Q (Ksqd1MXX) 8.7 cm LVLs_4Ch_Q (Ligv0FON) 7.3 cm LVSV_4Ch_Q (Radr2RRB) 47 ml LVVED_4Ch_Q (Gkql2KKI) 94 ml LVVES_4Ch_Q (Lemq2QAO) 46 ml HR_2Ch_Q (Aqsg3IKJ) 54 bpm LVCO_2Ch_Q (Houb6POD) 4.1 l/min LVEF_2Ch_Q (Tmxa9ORX) 66 % LVLd_2Ch_Q (Fhwo1TXE) 8.7 cm LVLs_2Ch_Q (Kmhy6BPJ) 6.8 cm LVSV_2Ch_Q (Vbuz8RJQ) 76 ml LVVED_2Ch_Q (Vdmx1CAH) 114 ml LVVES_2Ch_Q (Oshh5NYC) 38 ml NARA AA peak sys SL (AWMA) 11.0 % AAS peak sys SL (AWMA) 15.3 % AI peak sys SL (AWMA) 29.0 % AL peak sys SL (AWMA) 4.3 % AP peak sys SL (AWMA) 18.1 % peak sys SL (AWMA) 20.5 % AVC (AWMA) 374 ms BA peak sys SL (AWMA) 23.9 % BAS peak sys SL (AWMA) 16.9 % BI peak sys SL (AWMA) 25.6 % BL peak sys SL (AWMA) 22.5 % BP peak sys SL (AWMA) 11.8 % BS peak sys SL (AWMA) 19.3 % G peak SL(A2C) (AWMA) 23.3 % G peak SL(A4C) (AWMA) 17.7 % G peak SL(APLAX) (AWMA) 17.3 % G peak SL(Avg) (AWMA) 19.4 % MA peak sys SL (AWMA) 22.5 % MAS peak sys SL (AWMA) 24.2 % ME peak sys SL (AWMA) 27.1 % ML peak sys SL (AWMA) 18.6 % MP peak sys SL (AWMA) 20.4 % MS peak sys SL (AWMA) 22.2 % Report Signatures
--- OUTSIDE RECORDS SUMMARY | 2024-07-09 08:06 | XMS_ITS | Encounter Summary ---
Author Organization [facility] [employer] [facility] Address [address] [place] [address] Care Team Providers Care Supply Chain Vice President Name Role Phone Omkar Díaz MD Primary Care Provider [phone] Encounter Details Date Type Department Care Team (Late Contact Info) Description 07/09/2024 Orders Only [facility] Oncology and Hematology [facility] [address] [place] [address] Artur Booth MD [address] [place] [address] Malignant neoplasm of central portion of right breast in male, estrogen receptor positive (CMS/HCC) Social History Tobacco Use Types Packs/Day Years Used Date Smoking Tobacco: Every Day Cigarettes 0.5 28.3 Started: 1996 Smokeless Tobacco: Never Alcohol Use [...] Care Team (Late st Contact Info) Description 07/10/2024 9:30 AM CDT Office Visit [facility] Oncology and [facility] [address] [place] [address] Artur Booth MD [address] [place] [address] documented as of this encounter Visit Diagnoses Diagnosis Malignant neoplasm of central portion of right breast in male, estrogen receptor positive (CMS/HCC) documented in this encounter Care Teams Supply Chain Vice President Relationship Specialty Start Date End Date Omkar Díaz MD [address] [place] [phone] PCP - General Family Practice 06/14/23 documented as of this encounter
--- OUTSIDE RECORDS SUMMARY | 2024-07-09 08:06 | XMS_ITS | Encounter Summary ---
Author Organization [facility] Address [address] [place] [address] Care Team Providers Care Test Analyst Name Role Phone Unavailable Primary Care Provider Unavailabl e Encounter Details Date Type Department Care Team (Late st Contact Info) Description 12/30/2015 Abstract [facility] CONVERSION [address] [place] [address] , Generic Conversion, Social History Tobacco Use [...]
--- OUTSIDE RECORDS SUMMARY | 2024-07-09 08:06 | XMS_ITS | Clinical Summary ---
Author Organization [facility] Address [address] [place] [address] Care Team Providers Care Cake Knocker Name Role Phone Unavailable Primary Care Provider [...] 1997 COVID-19 Vaccine (2023-2 5 season) 2023 Meningococcal B Vaccine Aged Out No l onger eligible based on patient's age to complete this topic Meningococcal Vaccine Aged Out No cy mare eligible based on patient's age to complete this topic Pneumococcal Vaccine: Pediat rics (0 to 5 Years) and At-Risk Patients (6 to 49 Years) Aged Out No longer eligible b ased on patient's age to complete this topic RSV Immunizations Under 20 Months Aged Out No longer eligible based on patient's age to complete this topic
--- OUTSIDE RECORDS SUMMARY | 2024-07-09 08:06 | XMS_ITS | Clinical Summary ---
Author Organization [facility] Address [address] [place] [address] Care Team Providers Care Controller Repairer And Tester Name Role Phone Omkar Díaz MD Primary Care Provider [phone] Allergies No known active allergies Medications filgrastim (NEUPOGEN) 300 mcg/0.5 mL Syringe injection syringeIndicat ions:Malignant neoplasm of central portion of right breast in male, estrogen receptor positive (CMS/HCC) Inject 0.5 mL (300 mcg) by subcutaneous injection the week after treatment on Tuesday, Tuesday, Tuesday. 0.5 mL 3 4 Active esomeprazole (NexIUM) 40 mg Capsule, Delayed Release(E.C.) Take 1 Capsule (40 mg) by mouth daily before breakfast. 60 Capsule 1 5 Active HYDROcodone-ac etaminophen (NORCO) 7.5-325 mg TabletIndicati ons:Malignant neoplasm of central portion of right breast in male, estrogen receptor positive (CMS/HCC) Take 1 Tablet by mouth every 4 hours as needed for Pain, Moderate. Max Daily Amount: 6 Tablets 60 Tablet 5 Active HYDROcodone-ac etaminophen (NORCO) 7.5-325 mg TabletIndicati ons:Malignant neoplasm of central portion of right breast in male, estrogen receptor positive (CMS/HCC) Take 1 Tablet by mouth every 4 hours as needed for Pain, Moderate. Max Daily Amount: 6 Tablets 60 Tablet 5 025 Discontin ued(Reord er) HYDROcodone-ac etaminophen (NORCO) 7.5-325 mg TabletIndicati ons:Malignant neoplasm of central portion of right breast in male, estrogen receptor positive (CMS/HCC) Take 1 Tablet by mouth every 4 hours as needed for Pain, Moderate. Max Daily Amount: 6 Tablets 60 Tablet 025 Discontin ued(Reord er) Active Problems Problem Noted Date Diagnosed Date Mediastinal mass 07/25/2023 Encounters Date Type Department Care Team Description 07/09/2024 Orders Only [facility] Oncology and Hematology - [place] [address] Artur Booth MD Malignant neoplasm of central portion of right breast in male, estrogen receptor positive (CMS/HCC) 07/03/2024 Refill [facility] Oncology and Hematology - [place] [address] [place] [id number] Artur Booth MD Malignant neoplasm of central portion of right breast in male, estrogen receptor positive (CMS/HCC) 06/25/2024 Orders Only [facility] Oncology and Hematology - [address] [place] [address] Artur Booth MD Malignant neoplasm of central portion of right breast in male, estrogen receptor positive (CMS/HCC) 06/20/2024 Refill [facility] Oncology and Hematology - [place] [address] [place] [address] Artur Booth MD Malignant neoplasm of central portion of right breast in male, estrogen receptor positive (CMS/HCC) 06/11/2024 Orders Only [facility] Oncology and Hematology - [place] [address] [place] [address] Artur Booth MD Malignant neoplasm of central portion of right breast in male, estrogen receptor positive (CMS/HCC) 06/06/2024 External Device Data STL ABSTRACTION Provider, Abstract 06/06/2024 Refill [facility] Oncology and Hematology - [place] [address] [place] [address] Artur Booth MD Malignant neoplasm of central portion of right breast in male, estrogen receptor positive (CMS/HCC) 06/05/2024 External Device Data STL ABSTRACTION Provider, Abstract 05/31/2024 Orders Only [facility] Oncology and Hematology - [place] [address] [place] [id number] Artur Booth MD 05/31/2024 Abstract [facility] Oncology and Hematology - [place] [address] [place] [address] Artur Booth MD 05/28/2024 Orders Only [facility] Oncology and Hematology - [place] [address] [place] [address] Artur Booth MD Malignant neoplasm of central portion of right breast in male, estrogen receptor positive (CMS/HCC) 05/17/2024 Refill [facility] Oncology and Hematology - [place] [address] [place] [address] Artur Booth MD Malignant neoplasm of central portion of right breast in male, estrogen receptor positive (CMS/HCC) 05/16/2024 External Device Data STL ABSTRACTION Provider, Abstract 05/15/2024 External Device Data STL ABSTRACTION Provider, Abstract 05/14/2024 Orders Only [facility] Oncology and Hematology - [place] [address] [place] [address] Artur Booth MD Malignant neoplasm of central portion of right breast in male, estrogen receptor positive (CMS/HCC) 05/08/2024 External Device Data STL ABSTRACTION Provider, Abstract 05/08/2024 Telephone [facility] Oncology and Hematology [facility] [address] [place] [address] Artur Booth MD Antiacid 05/04/2024 11:00 AM FOOT DRILL OPERATOR Office Visit [facility] Oncology and Hematology - [place] [address] [place] [address] Artur Booth MD Malignant neoplasm of central portion of right breast in male, estrogen receptor positive (CMS/HCC) (Primary Dx) 05/04/2024 Orders Only [facility] Oncology and Hematology - [place] [address] [place] [address] Artur Booth MD 04/30/2024 Orders Only [facility] Oncology and Hematology - [place] [address] [place] [address] Artur Booth MD Malignant neoplasm of central portion of right breast in male, estrogen receptor positive (CMS/HCC) 04/27/2024 Abstract [facility] Oncology and Hematology - [place] [address] [place] [address] Artur Booth MD 04/19/2024 External Device Data STL ABSTRACTION Provider, Abstract 04/17/2024 Abstract [facility] Oncology and Hematology - [place] [address] [place] [address] Artur Booth MD 04/16/2024 Orders Only [facility] Oncology and Hematology - [place] [address] [place] [address] Artur Booth MD Malignant neoplasm of central portion of right breast in male, estrogen receptor positive (CMS/HCC) 04/13/2024 9:15 AM FOOT DRILL OPERATOR Office Visit [facility] Oncology and Hematology - [place] [address] [place] [address] Artur Booth MD Right upper quadrant abdominal pain (Primary Dx); Malignant neoplasm of central portion of right breast in male, estrogen receptor positive (CMS/HCC) 04/13/2024 Orders Only [facility] Oncology and Hematology - [place] [address] [place] [address] Artur Booth MD 04/11/2024 Refill [facility] Oncology and Hematology - [place] [address] [place] [address] Jose Cox MD Malignant neoplasm of central [...] 0.5 28.3 Started: 1996 Smokeless Tobacco: Never Tobacco Cessation:Ready [...] Sign Reading Time Taken Comments Blood Pressure 144/101 05/04/2024 11:08 AM FOOT DRILL OPERATOR Pulse 69 05/04/2024 11:08 AM FOOT DRILL OPERATOR Temperature 36.7 C (98 F) 05/04/2024 11:08 AM FOOT DRILL OPERATOR Respiratory Rate 16 04/13/2024 9:22 AM FOOT DRILL OPERATOR Oxygen Saturation 98% 05/04/2024 11:08 AM FOOT DRILL OPERATOR Inhaled Oxygen Concentration - - Weight 87.1 kg (192 lb) 04/13/2024 9:22 AM FOOT DRILL OPERATOR Height 182.9 cm (6') 06/21/2023 3:01 PM CDT Body Mass Index 26.04 06/21/2023 3:01 PM CDT Plan of Treatment Upcoming Encounters Date Type Department Care Team (Late st Contact Info) Description 07/10/2024 9:30 AM CDT Office Visit [facility] Oncology and Hematology - [place] [address] [facility] [address] [place] [address] Artur Booth MD [address] [facility] [address] [place] [address] Health Maintenance Due Date Last Done Comments Pre-Diabetes and Diabetes Screening 1980 DTAP/TDAP/TD VACCINES (1 - Tdap) 1997 HEPATITIS B VACCINES (1 of 3 - 19+ 3-dose series) 1997 Preventative Visit-Managed Medicaid 1997 COLORECTAL SCREENING 2023 Colorectal Cancer Screening 2023 FIT-DNA Q 3 years 2023 FIT/FOBT Q 1 year 2023 Flex Sig/CT Colonography Q 5 years 2023 INFLUENZA VACCINE (#1) 2023 HPV VACCINES Aged Out No longer eligi ble based on patient's age to complete this topic Procedures Procedure Name Priority Date/Time Associated Diagnosis Comments CBC WITH DIFFERENTIAL Routine 05/25/2024 1:43 PM FOOT DRILL OPERATOR CBC WITH DIFFERENTIAL Routine 05/04/2024 1:41 PM FOOT DRILL OPERATOR CBC WITH DIFFERENTIAL Routine 04/13/2024 2:58 PM FOOT DRILL OPERATOR CANCER ANTIGEN 15-3 Routine 04/13/2024 2:20 PM FOOT DRILL OPERATOR BASIC METABOLIC PANEL Routine 04/13/2024 2:11 PM FOOT DRILL OPERATOR from Last 3 Months Results * CBC WITH DIFFERENTIAL (05/25/2024 1:43 PM FOOT DRILL OPERATOR) Only the most recent of3 resultswithin the time period is included. Blood us Artur Booth MD HEMATOLOGY ORDERABLES Final Res ult * CANCER ANTIGEN 15-3 (04/13/2024 2:20 PM FOOT DRILL OPERATOR) Blood us Artur Booth MD CHEMISTRY ORDERABLES Final Resu lt * BASIC METABOLIC PANEL (04/13/2024 2:11 PM FOOT DRILL OPERATOR) Blood us Artur Booth MD CHEMISTRY ORDERABLES Final Resu lt from Last 3 Months Insurance [facility] MEDICAID [employer] MEDICAID Care Teams Controller Repairer And Tester Relationship Specialty Start Date End Date Omkar Díaz MD [address] [place] [phone] PCP - General Family Practice 06/14/23
--- OUTSIDE RECORDS SUMMARY | 2024-07-09 08:06 | XMS_ITS | Continuity of Care Document ---
Author Organization [facility] Address [address] [place] [address] Phone Care Team Providers Care Application Consultant Name Role Phone Moralessy, Edward Unavailable Unavailable Advance Directives Directive Yes / No Effective Date File Name No Information Encounters Encounter Description Practice Location Reason(s) For Visit Diagnoses Date Provider Providers Copied on Encounter [facility], [address], [place], [place], [id number], [place] tel:[phone] [facility] No Information May- 9-200 3 Doisy Edward. [address] , [address], [place], [address], [place]. tel:[phone] Family History Family Member Type Diagnosis Age At Onset No Information Payers Payer name Insurance type Covered constitution party ID Authorjasona neeraj(s) [employer] [id number] Social History Type Description Quantity Date Captured [...]
--- OUTSIDE RECORDS SUMMARY | 2024-07-09 08:06 | XMS_ITS | Clinical Summary ---
Author Organization [employer] Address [address] [facility] [place] [address] Care Team Providers Care International Travel Consultant Name Role Phone Omkar Díaz MD Primary Care Provider [phone] Source Comments [employer],non-owned Affiliates and Associated Physician Practices is amultiple site organization consisting of ambulatory clinics and hospital sitesin [place], [place], [place] and [place]. This disclosure is being madepursuant to the Care Everywhere program and may not contain all information available regarding this patient. Last updated 17.[employer] Allergies No known active allergies Medications * Be aware that medications may not be up to date on this document. Alwaysverify current medications with the patient. No known medications Active Problems Problem Noted Date Diagnosed Date Malignant neoplasm of centra l portion of right breast in female, estrogen receptor positive 06/21/2023 Cancer Staging:Clinical stage from 06/02/2023:Stage IB(cT2, cN0, cM0, G3, ER+, [place]+, HER2+) - Signed by Elizabeth Iqbal MD [...] at Not on file Legal Sex Male 4:25 PM QUILL CLEANER Gender Identity Not on file Sexual Orientation [...] VACCINE (1 - 2023-2 5 season) 2023 DEPRESSION SCREENING 03/28/2024 INFLUENZA VACCINE (Season Ended) 2024 ZOSTER VACCINE (1 of 2) 2028 HIB VACCINE Aged Out No longer eligi ble based on patient's age to complete this topic HPV VACCINE Aged Out No longer eligi ble based on patient's age to complete this topic MENINGOCOCCAL (Group B) VACC INE SHARED DECISION-MAKING Aged Out No longer eligibl e based on patient's age to complete this topic MENINGOCOCCAL GROUPS A/C/Y/W VACCINE Aged Out No longer eligible b ased on patient's age to complete this topic Insurance [facility] SELF PAY NO INSURANCE Member Subscriber Plan / Payer (Ef fective for All Dates) Name:Nikolas Mello Jr. Member ID:Not on file Relation to Subscriber:Not on file Name:NIKOLAS MELLO JR. Subscriber ID:Not on file (Home) Address: [address] [place] [address] Payer ID:Not on file Group ID:Not on file Type:Self Pay Address: [place], [place] * Guarantor: NIKOLAS MELLO Account Type Relation to Patient Date of Phone Billing Address Personal/Family [address] [place] [address] SELF PAY NO INSURANCE Member Subscriber Plan / Payer (Ef fective for All Dates) Name:Nikolas Mello Jr. Member ID:Not on file Relation to Subscriber:Not on file Name:NIKOLAS MELLO Subscriber ID:Not on file Address: [address] [place] [address] Payer ID:Not on file Group ID:Not on file Type:Self Pay Address: [facility] SELF PAY NO INSURANCE Member Subscriber Plan / Payer (Ef fective for All Dates) Name:Nikolas Mello Jr. Member ID:Not on file Relation to Subscriber:Not on file Name:JOSHUANIKOLAS Subscriber ID:Not on file Address: [address] [place] [address] Payer ID:Not on file Group ID:Not on file Type:Self Pay Address: [facility] * Guarantor: NIKOLAS MELLO Account Type Relation to Patient Date of Phone Billing Address Personal/Family [address] [place] [address] Care Teams International Travel Consultant Relationship Specialty Start Date End Date Omkar Díaz MD [address] [place] [address] PCP - General Family Medicine 06/21/23
== END 2024-07-09 07:59 | disposition home or self-care (01) ==
PROVIDERS: PCP Nurse Practitioner Family; Visit Provider Internal Medicine Hematology & Oncology
DX: C50.121 Malignant neoplasm of central portion of right male breast (principal); Z17.0 Estrogen receptor positive status [ER+]
CPT/HCPCS: 93306

== ENCOUNTER 2024-10-08 12:59 | Outpatient (CLI) | payer OTHER, SELFPAY ==
--- OUTSIDE RECORDS SUMMARY | 2024-10-08 13:07 | XMS_ITS | Continuity of Care Document ---
Author Organization [facility] Address [address] [place] [address] Phone Care Team Providers Care Iron Assorter Name Role Phone Moralessy, Edward Unavailable Unavailable Advance Directives Directive Yes / No Effective Date File Name No Information Encounters Encounter Description Practice Location Reason(s) For Visit Diagnoses Date Provider Providers Copied on Encounter [facility], [address], [place], [place], [id number], [place] tel:[phone] [facility] No Information May- 9-200 3 Doisy Edward. [address], [place], [address], [place]. tel:[phone] Family History Family Member Type Diagnosis Age At Onset No Information Payers Payer name Insurance type Covered democrat ID Authorjasona neeraj(s) [employer] [id number] Social History Type Description Quantity Date Captured [...]
--- OUTSIDE RECORDS SUMMARY | 2024-10-08 13:07 | XMS_ITS | Encounter Summary ---
Author Organization [facility] [employer] [facility] Address [address] [place] [address] Care Team Providers Care Milking System Installer Name Role Phone Omkar Díaz MD Primary Care Provider [phone] Encounter Details Date Type Department Care Team (Late st Contact Info) Description 10/08/2024 Orders Only [facility] Oncology and Hematology - [place] [address] [facility] [address] [place] [address] Artur Booth MD [address] [facility] [address] [place] [address] Malignant neoplasm of central portion of right breast in male, estrogen receptor positive (CMS/HCC) Social History Tobacco Use Types Packs/Day Years Used Date Smoking Tobacco: Every Day Cigarettes 0.5 28.5 Started: 1996 Smokeless Tobacco: Never Alcohol Use [...] (CMS/HCC) documented in this encounter Care Teams Milking System Installer Relationship Specialty Start Date End Date Omkar Díaz MD [address] [place] [address] [address] [place] [address] PCP - General Family Practice 06/14/23 documented as of this encounter
--- OUTSIDE RECORDS SUMMARY | 2024-10-08 13:08 | XMS_ITS | Clinical Summary ---
[facility] Organization [facility] Address [address] [place] [address] Care Team Providers Care Piping Engineer Name Role Phone Omkar Díaz MD Primary Care Provider [phone] Allergies No known active allergies Medications filgrastim (NEUPOGEN) 300 mcg/0.5 mL Syringe injection syringeIndicati ons:Malignant neoplasm of central portion of right breast in male, estrogen receptor positive (CMS/HCC) Inject 0.5 mL (300 mcg) by subcutaneous injection the week after treatment on Tuesday, Tuesday, Tuesday. 0.5 mL 3 4 Active esomeprazole (NexIUM) 40 mg Capsule, Delayed Release(E.C.) Take 1 Capsule (40 mg) by mouth daily before breakfast. 60 Capsule 1 5 Active HYDROcodone-virginia taminophen (NORCO) 7.5-325 mg TabletIndicatio ns:Malignant neoplasm of central portion of right breast in male, estrogen receptor positive (CMS/HCC) Take 1 Tablet by mouth every 4 hours as needed for Pain, Moderate. Max Daily Amount: 6 Tablets 60 Tablet 5 Active tamoxifen (NOLVADEX) 20 mg tablet Take 1 Tablet (20 mg) by mouth daily. 90 Tablet 1 5 Active Active Problems Problem Noted Date Diagnosed Date Mediastinal mass 07/25/2023 Encounters Date Type Department Care Team Description 10/08/2024 Orders Only [facility] Oncology and Hematology - [place] [address] [facility] [address] [place] [address] Artur Booth MD Malignant neoplasm of central portion of right breast in male, estrogen receptor positive (CMS/HCC) 09/24/2024 Orders Only [facility] Oncology and Hematology - [place] [address] [place] [id number] Artur Booth MD Malignant neoplasm of central portion of right breast in male, estrogen receptor positive (CMS/HCC) 09/10/2024 Orders Only [facility] Oncology and Hematology - [place] [address] [place] [address] Artur Booth MD Malignant neoplasm of central portion of right breast in male, estrogen receptor positive (CMS/HCC) 08/28/2024 External Device Data STL ABSTRACTION Provider, Abstract 08/27/2024 Orders Only [facility] Oncology and Hematology - [place] [address] [place] [address] Artur Booth MD Malignant neoplasm of central portion of right breast in male, estrogen receptor positive (CMS/HCC) 08/16/2024 External Device Data STL ABSTRACTION Provider, Abstract 08/15/2024 External Device Data STL ABSTRACTION Provider, Abstract 08/14/2024 External Device Data STL ABSTRACTION Provider, Abstract 08/13/2024 Orders Only [facility] Oncology and Hematology - [place] [address] [place] [address] Artur Booth MD Malignant neoplasm of central portion of right breast in male, estrogen receptor positive (CMS/HCC) 08/02/2024 Orders Only [facility] Oncology and Hematology - [place] [address] [place] [address] Artur Booth MD 08/01/2024 8:45 AM CDT Office Visit [facility] Oncology and Hematology - [place] [address] [place] [address] Artur Booth MD Malignant neoplasm of central portion of right breast in male, estrogen receptor positive (CMS/HCC) (Primary Dx); Mediastinal mass 08/01/2024 Orders Only [facility] Oncology and Hematology - [place] [address] [place] [address] Artur Booth MD 07/31/2024 Orders Only [facility] Oncology and Hematology [facility] [address] [place] [address] Artur Booth MD Malignant neoplasm of central portion of right breast in male, estrogen receptor positive (CMS/HCC) (Primary Dx) 07/19/2024 Refill [facility] Oncology and Hematology [facility] [address] [place] [address] Lacy Chavira MD Malignant neoplasm of central portion of right breast in male, estrogen receptor positive (CMS/HCC) 07/18/2024 Refill [facility] Oncology and Hematology - [place] [address] [place] [address] Artur Booth MD Malignant neoplasm of central portion of right breast in male, estrogen receptor positive (CMS/HCC) 07/16/2024 Refill [facility] Oncology and Hematology [facility] [address] [place] [address] Artur Booth MD Malignant neoplasm of central portion of right breast in male, estrogen receptor positive (CMS/HCC) 07/10/2024 External Device Data STL ABSTRACTION Provider, Abstract 07/09/2024 Orders Only [facility] Oncology and Hematology [facility] [address] [place] [address] Artur Booth MD Malignant neoplasm of central portion of right breast in male, estrogen receptor positive (CMS/HCC) from Last 3 Months Family History Medical History Relation Name Comments Heart Disease Father Breast Cancer Mother Relation Name Status Comments Father Mother Sister Alive Social History Tobacco Use Types Packs/Day Years Used Date Smoking Tobacco: Every Day Cigarettes 0.5 28.5 Started: 1996 Smokeless Tobacco: Never Tobacco Cessation:Ready [...] Sign Reading Time Taken Comments Blood Pressure 107/63 08/01/2024 8:44 AM CDT Pulse 82 08/01/2024 8:44 AM CDT Temperature 36.6 C (97.8 F) 08/01/2024 8:44 AM CDT Respiratory Rate 16 08/01/2024 8:44 AM CDT Oxygen Saturation 95% 08/01/2024 8:44 AM CDT Inhaled Oxygen Concentration - - Weight 83.2 kg (183 lb 6.4 oz) 08/01/2024 8:44 A M CDT Height 182.9 cm (6') 06/21/2023 3:01 PM CDT Body Mass Index 24.87 06/21/2023 3:01 PM CDT Plan of Treatment Health Maintenance Due Date Last Done Comments DTAP/TDAP/TD VACCINES (1 - Tdap) 1997 HEPATITIS B VACCINES (1 of 3 - 19+ 3-dose series) 1997 COLORECTAL SCREENING 2023 Colorectal Cancer Screening 2023 FIT-DNA Q 3 years 2023 FIT/FOBT Q 1 year 2023 Flex Sig/CT Colonography Q 5 years 2023 INFLUENZA VACCINE (#1) 2024 HPV VACCINES Aged Out No longer eligi ble based on patient's age to complete this topic Procedures Procedure Name Priority Date/Time Associated Diagnosis Comments CBC WITH DIFFERENTIAL Routine 08/01/2024 3:45 PM CDT BASIC METABOLIC PANEL Routine 08/01/2024 10:15 AM CDT from Last 3 Months Results * CBC WITH DIFFERENTIAL (08/01/2024 3:45 PM CDT) Blood Artur Booth MD HEMATOLOGY ORDERABLES Final Res ult * BASIC METABOLIC PANEL (08/01/2024 10:15 AM CDT) Blood Artur Booth MD CHEMISTRY ORDERABLES Final Resu lt from Last 3 Months Insurance Care Teams Piping Engineer Relationship Specialty Start Date End Date Omkar Díaz MD [address] [place] [phone] PCP - General Family Practice 06/14/23
--- OUTSIDE RECORDS SUMMARY | 2024-10-08 13:08 | XMS_ITS | Encounter Summary ---
Author Organization [facility] Address [address] [place] [address] Care Team Providers Care Filtering Machine Tender Helper Name Role Phone Unavailable Primary Care Provider Unavailabl e Encounter Details Date Type Department Care Team (Late st Contact Info) Description 12/30/2015 Abstract [facility] CONVERSION [address] [place] [address] , Generic Conversion, Social History Tobacco Use [...]
--- OUTSIDE RECORDS SUMMARY | 2024-10-08 13:08 | XMS_ITS | Clinical Summary ---
Author Organization [employer] Address [address] [place] [address] Care Team Providers Care Sponge Buffer Name Role Phone Omkar Díaz MD Primary Care Provider [phone] Source Comments [employer],non-owned Affiliates and Associated Physician Practices is amultiple site organization consisting of ambulatory clinics and hospital sitesin [place], [place], [place] and [place]. This disclosure is being madepursuant to the Care Everywhere program and may not contain all information available regarding this patient. Last updated 17.[employer] Allergies No known active allergies Medications * Be aware that medications may not be up to date on this document. Alwaysverify current medications with the patient. No known medications Active Problems Problem Noted Date Diagnosed Date Malignant neoplasm of centra l portion of right breast in female, estrogen receptor positive 06/21/2023 Cancer Staging:Clinical stage from 06/02/2023:Stage IB(cT2, cN0, cM0, G3, ER+, [place]+, HER2+) - Signed by Elizabeth Iqbal MD [...] on file Legal Sex Male 4:25 PM [employer] Gender Identity Not on file Sexual Orientation [...] season) 2023 DEPRESSION SCREENING 03/28/2024 INFLUENZA VACCINE (#1) 2024 ZOSTER VACCINE (1 of 2) 2028 [...] patient's age to complete this topic Insurance [facility] SELF PAY NO INSURANCE Member Subscriber Plan / Payer (Ef fective for All Dates) Name:Nikolas Mello Jr. Member ID:Not on file Relation to Subscriber:Not on file Name:NIKOLAS MELLO JR. Subscriber ID:Not on file (Home) Address: [address] [place] [address] Payer ID:Not on file Group ID:Not on file Type:Self Pay Address: [place], [place] * Guarantor: NIKOLAS MELLO Account Type Relation to Patient Date of Phone Billing Address Personal/Family [address] [place] [address] SELF PAY NO INSURANCE Member Subscriber Plan / Payer (Ef fective for All Dates) Name:Nikolas Mello Jr. Member ID:Not on file Relation to Subscriber:Not on file Name:NIKOLAS MELLO Subscriber ID:Not on file Address: [address] [place] [address] Payer ID:Not on file Group ID:Not on file Type:Self Pay Address: [facility] SELF PAY NO INSURANCE Member Subscriber Plan / Payer (Ef fective for All Dates) Name:Nikolas Mello Jr. Member ID:Not on file Relation to Subscriber:Not on file Name:JOSHUANIKOLAS Subscriber ID:Not on file Address: [address] [place] [address] Payer ID:Not on file Group ID:Not on file Type:Self Pay Address: [facility] * Guarantor: NIKOLAS MELLO Account Type Relation to Patient Date of Phone Billing Address Personal/Family [address] [place] [address] Care Teams Sponge Buffer Relationship Specialty Start Date End Date Omkar Díaz MD [address] [place] [address] PCP - General Family Medicine 06/21/23
--- OUTSIDE RECORDS SUMMARY | 2024-10-08 13:08 | XMS_ITS | Clinical Summary ---
Author Organization [facility] Address [address] [place] [address] Care Team Providers Care Automobile Taillight Assembler Name Role Phone Unavailable Primary Care Provider [...] 3:55 PM CDT Height 186.7 cm (6' 1.5) 12/30/2015 3:55 PM CDT Body Mass Index [...]
[2024-10-08 13:27] LABS: Hematocrit 47.7 % (42.0-52.0); Hemoglobin 15.8 g/dL (14.0-18.0); Immature Granulocyte Percent A 0.3 % (0-0.5); Lymphocytes Absolute Auto 1.68 K/mm3 (0.9-3.2); Mean Corpuscular HGB Conc 33.1 g/dl (32-36); Mean Corpuscular Hemoglobin 31.9 pg (26-34); Mean Corpuscular Volume 96.4 fl (80-100); Nucleated Red Blood Cells Absolute Auto 0.000 K/mm3 (0.0-0.012); Nucleated Red Blood Cells Perc 0.0 % (0.0-0.2); Platelet Count Result 231 k/mm3 (150-375); Red Blood Count 4.95 M/mm3 (4.6-6.20); White Blood Count 8.8 K/mm3 (4.5-10.0)
[2024-10-08 13:40] LABS: Alanine Aminotransferase 15 U/L (6-50); Albumin Level 4.7 g/dL (3.5-5.1); Alkaline Phosphatase 71 U/L (38-126); Amylase 80 U/L (30-110); Anion Gap 13 mmol/L (4-12); Aspartate Amino Transferase 25 U/L (17-59); Bilirubin,Total 0.5 mg/dL (0.2-1.3); Blood Urea Nitrogen 23 mg/dL (9-20); Calcium 10.4 mg/dL (8.4-10.2); Carbon Dioxide 25 mmol/L (22-30); Chloride 101 mmol/L (98-107); Estimated Glomerular Filt Rate > 60; Glucose 98 mg/dL (65-110); Lipase 227 U/L (23-300); Potassium 4.2 mmol/L (3.4-5.0); Sodium 139 mmol/L (137-145); Total Protein 8.2 g/dL (6.3-8.2)
[2024-10-09 07:08] LABS: Iron 63 ug/dL (38-169); UIBC 324 ug/dL (111-343)
== END 2024-10-08 13:00 | disposition home or self-care (01) ==
LOC: ANHLAB 12:59
PROVIDERS: PCP Nurse Practitioner Family; Visit Provider Nurse Practitioner Family
DX: D64.9 Anemia, unspecified (principal); R10.11 Right upper quadrant pain; R19.4 Change in bowel habit; R10.13 Epigastric pain; R11.10 Vomiting, unspecified; R19.7 Diarrhea, unspecified
CPT/HCPCS: 36415; 80053; 82150; 82533; 83540; 83550; 83690; 85025

== ENCOUNTER 2025-01-16 15:44 | Emergency (ER) | payer OTHER, SELFPAY ==
--- NOTE | ~2025-01-16 | XR_ITS ---
EXAMINATION: XR forearm RT 2V DATE: 01/16/2025 16:10 INDICATION: Pain and swelling at the right forearm TECHNIQUE: AP an lateral views of the right forearm were obtained. COMPARISON: none FINDINGS: Bone alignment is normal. No fracture. 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 No periosteal reaction or suspicious lytic or blastic bone lesions. Tiny ossicle along the medial epicondyle which could be either enthesopathic or heterotopic ossicles related to chronic soft tissue injury such as sprain of the ulnar collateral ligament complex. Soft tissues are unremarkable. No elbow joint effusion. IMPRESSION: 1. No right elbow joint effusion or acute osseous abnormality. Reviewed, dictated and finalized at location A.
[2025-01-16 15:51] VITALS: BP 117/74; PULSE 86; RESP 18; TEMP 36.9; O2SAT 100
--- NOTE | 2025-01-16 16:36 | ED_ITS ---
HPI - Extremity Problem General Chief complaint: Extremity Problem,Nontraumatic Stated complaint: Right Arm Pain Time Seen by Provider: 01/16/25 16:15 Source: patient and RN notes reviewed Mode of arrival: ambulatory Limitations: no limitations History of Present Illness HPI Narrative: 44-year-old male patient presents Express [facility] complaining right forearm pain and swelling approximately 3 days. Patient just return to work on Tuesday, he works in construction, he was using a hammer vigorously at work sitting developed pain and swelling to his distal forearm. Patient worse the pain is worse with turning movement of his wrist. Patient has a history of breast cancer, status post chemotherapy, status post double mastectomy. Patient has not been came over 6-12 months. 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 He says he is not currently on chemotherapy but he is on biologic therapy. Patient denies any chest pain, shortness of breath, fevers, body aches, chills, no redness,, or any other symptoms Related Data Home Medications ?Medication ?Instructions ?Recorded ?Confirmed ?Last Taken ?Type pantoprazole 40 mg tablet,delayed 40 mg PO QAM 5 10/16/24 Unknown History release lidocaine-prilocaine 2.5 %-2.5 % 01/16/25 Unknown Hi story topical cream morphine 30 mg tablet,extended mg PO 01/16/25 Unknown History release oxycodone 10 mg tablet mg 01/16/25 Unknown History Allergies Allergy/AdvReac Type Severity Reaction Status Date / Time exofin skin glue AdvReac Unknown Other Uncoded 10/16/24 09:44 Review of Systems Review of Systems: CONSTITUTIONAL: Denies fever, chills, or sweats. EYES: Denies visual changes, redness, or discharge. ENT: Denies rhinorrhea, congestion, sore throat, or otalgia. CARDIOVASCULAR: Denies chest pain, palpitations, or edema. RESPIRATORY: Denies cough or dyspnea. GASTROINTESTINAL: Denies abdominal pain, nausea, vomiting, or diarrhea. GENITOURINARY: Denies dysuria or hematuria. SKIN: Denies rash or itching. MUSCULOSKELETAL: Denies back pain, joint pain, or myalgia. Positive for right forearm pain and swelling. NEUROLOGIC: Denies headache, numbness, or weakness. PSYCHIATRIC: Denies anxiety or depression. All other systems reviewed are negative, except as documented in HPI. [facility] Past Medical History Medical History Weight loss Change in bowel habits Nausea RUQ pain Hx of renal calculi Depression with anxiety Anxiety Chronic low back pain Attention Deficit Hyperactivity Disorder (ADHD) Surgical History Surgical History S/P bilateral mastectomy H/O ureteroscopy Family History Family History Mother Family history of malignant neoplasm of breast in first degree relative, Onset Age: 37 Other Carcinoma of colon Family history of arthritis Malignant neoplasm of prostate Social History Social History Smoking packs per day: 1 Smoking cigarettes per day: 20.0 Years smoked: 25 Smoking pack-years: 25.00 Smoking status: Current every day smoker Tobacco type: cigarettes Second hand tobacco smoke exposure: No Alcohol intake: former Alcohol use details: occasional Substance use: current Substance use type: marijuana Other substance usage details: DAILY Last use: 12/20/23 Do You Feel Safe in your Home?: Yes Lack of Transportation: No Lack of Food: Never True Current Housing: I Have Housing Concerned About Future Housing: No Difficulty Paying Gas/Electric Bills: No Difficulty Paying for Meds: No Currently Unemployed: No Education: High School Diploma/GED Difficulty w/ Childcare or Family Care: No Living arrangements: with family Occupation/Education: occupation Additional occupation/education comments: [employer] [place] Gender identity (if verbalized by the patient): Male Spiritual care concerns: No Comments At the time of my signature, I reviewed and agree with the nursing past medical, surgical, social, and family history. There is no relevant family history pertinent to the patient complaint. Exam Narrative: GENERAL: This is a well-nourished, well-developed adult, in no apparent distress. They are non ill-appearing, nontoxic appearing. HEAD: normocephalic, atraumatic. EYES: Sclera clear/white. Conjunctiva normal. Vision is grossly intact. Extraocular movements intact EARS: External ears normal, Hearing grossly intact. NOSE: External nose normal THROAT: Mucous membranes moist, NECK: Neck supple, CARDIOVASCULAR: Regular rate and rhythm RESPIRATORY: Respiratory rate normal, respiratory effort nonlabored, no respiratory distress SKIN: warm, Dry, intact with no suspicious lesions or rash, good texture and turgor. NEURO: awake, alert, and oriented to person, place and time. There were no obvious focal neurologic abnormalities. EXTREMITIES: Right forearm: Mild swelling in to the distal posterior lateral wrist/distal forearm. It is tender to palpate. No palpable cord, no varicose veins, swelling is focal, no distal swelling to the hand or fingers. No redness. No exudate, no area of fluctuance, no induration. There is mild pain to full range of motion of wrist. Right radial pulse 2 +and palpable. Capillary refill less than 2 seconds. Neurovascular status intact distal to swelling. Sensation intact. BACK: Nontender without deformity. No CVA tenderness. Course Course Emergency Course: Portions of this record may have been created with voice recognition software Level of Care: Express Care Visit Vital Signs Vital signs: Vital Signs Temperature 98.5 F 01/16/25 15:51 Pulse Rate 86 01/16/25 15:51 Respiratory Rate 18 01/16/25 15:51 Blood Pressure 117/74 01/16/25 15:51 Pulse Oximetry 100 01/16/25 15:51 Oxygen Delivery Room Air 01/16/25 15:51 Temperature 98.5 F 01/16/25 15:51 Pulse Rate 86 01/16/25 15:51 Respiratory Rate 18 01/16/25 15:51 Blood Pressure 117/74 01/16/25 15:51 Pulse Oximetry 100 01/16/25 15:51 Oxygen Delivery Room Air 01/16/25 15:51 Reviewed MDM - Extremity (Nontraumatic) MDM Narrative Medical decision making narrative: X-ray right form is negative for any fracture or acute findings. Incidental finding of arthritis throughout the right hand and right elbow. There also may be a chronic sprain in the right elbow. Given patient's history of presenting illness is likely a musculoskeletal injury from using a hammer. Patient has been out of work for a while since he has been treated for cancer. Symptoms do not appear to be clinically consistent with DVT, patient is not currently chemotherapy over the last 6-12 months, but he does have active cancer in his small bowel. Offered patient ER transfer for further evaluation management and he declined. He has a follow-up with his oncologist on Tuesday next week and will get it evaluated then. Offered patient Armando wrap and patient declined. Discussed physical exam findings. Advised supportive measures and signs/symptoms to go to the ER. Pt is appropriate for outpt treatment and f/u. Differential Diagnosis Differential diagnosis: Likely superficial thrombophlebitis, deep venous thrombosis of upper extremity and other (Wrist sprain, wrist contusion, pathological fracture, arthritis) Imaging Data Radiologist's impression: ITS Impressions Forearm X-Ray 01/16/25 16:12 IMPRESSION: 1. No right elbow joint effusion or acute osseous abnormality. Critical Care Time Critical Care Time Critical Care Time: No Discharge Plan Discharge Clinical Impression: Sprain of forearm, right Qualifiers: Encounter type: initial encounter Qualified Code(s): S63.501A - Unspecified sprain of right wrist, initial encounter Patient Disposition: Home Condition: Stable Instructions: Antibiotic Form, Arm Pain (ED) Additional Instructions: The x-ray of your right forearm is negative for any fractures or acute findings. There was arthritis noted to your x-ray. Rest and elevate the the affected arm. Use as tolerated. Apply ice 15-20 minute intervals several times a day Keep it wrapped with ARMANDO aware wrist cock-up splint. Take Motrin as needed for pain. Follow instructions on the bottle. Follow up with your primary care provider as needed in 1-2 weeks especially if pain persists Go to the ER she developed worsening arm swelling, pain, chest pain, difficulty breathing, fevers, or any serious concerns Patient Language: Croatian Prescriptions: No Action morphine 30 mg tablet extended release PO lidocaine-prilocaine 2.5-2.5 % cream oxycodone 10 mg tablet amitriptyline 25 mg tablet 25 mg PO QHS 30 Days Qty: 30 5RF pantoprazole 40 mg tablet,delayed release (DR/EC) 40 mg PO QAM sucralfate [Carafate] 1 gram tablet 1 g PO QID Qty: 120 2RF hydrocodone-acetaminophen 5-325 mg tablet 1 tablet PO QID PRN (Reason: pain) Qty: 120 0RF alprazolam 1 mg tablet 1 mg PO PRN PRN (Reason: Anxiety) Qty: 20 0RF ibuprofen 600 mg tablet 600 mg PO TID PRN (Reason: fever or pain) Qty: 90 2RF Follow-up/Referrals: Dorota Urena APRN [Primary Care Provider, [facility]] Time of Disposition: 16:34
== END 2025-01-16 16:40 | disposition home or self-care (01) ==
PROVIDERS: PCP Nurse Practitioner Family
DX: S59.811A Other specified injuries right forearm, initial encounter (principal); X50.3XXA Overexertion from repetitive movements, initial encounter; Y99.0 Civilian activity done for income or pay; C17.9 Malignant neoplasm of small intestine, unspecified; F17.210 Nicotine dependence, cigarettes, uncomplicated; F41.8 Other specified anxiety disorders; Z85.3 Personal history of malignant neoplasm of breast; Z90.13 Acquired absence of bilateral breasts and nipples; Z92.21 Personal history of antineoplastic chemotherapy
CPT/HCPCS: 73090; 99213; G0463